=== PATIENT | female | born 1985 | race Caucasian/White ===

== ENCOUNTER 2016-09-04 22:12 | Observation (INO) | payer OTHER ==
[2016-09-04] MEDS ORDERED: SODIUM CHLORIDE 0.9% 1,000 ML IV STA (23:16)
[2016-09-04] MEDS ORDERED: NITROGLYCERIN OINT 1 INCH/GM PACKET TOPICAL STA (23:16)
[2016-09-04] MEDS ORDERED: ONDANSETRON 4 MG/2 ML VIAL IVP STA (23:16)
[2016-09-04] MEDS ORDERED: ASPIRIN 81 MG CHEW PO STA (23:16)
[2016-09-04] MEDS ORDERED: HYDROmorphone 1 MG/ML 1 ML SYRINGE IVP STA (23:18)
[2016-09-04 23:31] LABS: Basophils # (A) 0.1 k/uL (0-0.2); Basophils % (A) 1 %; CH 25.8; CHCM 31.2; Eosinophils # (A) 0.1 k/uL (0-0.7); Eosinophils % (A) 2 %; HCT 34.2 % (34.0-46.0); HGB 10.7 gm/dL (11.4-16.0); Hypochromasia Moderate; Luc # (Auto) 0.12; Luc % (Auto) 2; Lymphocytes # (A) 0.5 k/uL (1.0-4.8); Lymphocytes % (A) 11 %; MCHC 31.3 g/dL (31.0-37.0); Mean Platelet Volume 6.8; Monocytes # (A) 0.3 k/uL (0-1.0); Monocytes % (A) 6 %; Neutrophils % (A) 79 %; RBC 4.12 m/uL (3.80-5.40); RDW 15.2 % (11.5-15.5); WBC (Perox) 4.75
[2016-09-04 23:43] LABS: Partial Thromboplastin Time 28.1 sec (22.0-30.0); Prothrombin Time 10.1 sec (9.0-12.0)
[2016-09-04 23:45] LABS: ALT 38 U/L (9-52); AST 25 U/L (14-36); Alkaline Phosphatase 94 U/L (38-126); Anion Gap 12 mmol/L; Blood Urea Nitrogen 18 mg/dL (7-17); Calcium 9.7 mg/dL (8.4-10.2); Carbon Dioxide 28 mmol/L (22-30); Chloride 102 mmol/L (98-107); Glucose 77 mg/dL (74-99); Magnesium 2.1 mg/dL (1.6-2.3); Non-African American GFR(MDRD) >60 (>60 ml/min/1.73 sqM); Sodium 142 mmol/L (137-145); Total Bilirubin 0.4 mg/dL (0.2-1.3); Total Protein 6.7 g/dL (6.3-8.2)
[2016-09-04 23:57] LABS: Creatine Kinase 39 U/L (30-135)
--- NOTE | 2016-09-05 00:08 | XR ---
EXAM: XR Chest, 2 Views CLINICAL HISTORY: Reason: Chest Pain TECHNIQUE: Frontal and lateral views of the chest. COMPARISON: 11/05/15 FINDINGS: Lungs: Unremarkable. No consolidation. Pleural space: Unremarkable. No pneumothorax. Heart: Unremarkable. No cardiomegaly. Mediastinum: Unremarkable. Surgical clips within seen within the superior mediastinum/lower neck. Bones/joints: Unremarkable. IMPRESSION: Unremarkable chest x-rays.
[2016-09-05 00:10] LABS: Creatine Kinase MB 0.4 ng/mL (0.0-2.4); Troponin I <0.012 ng/mL (0.000-0.034)
--- NOTE | 2016-09-05 00:39 | ED ---
Chest Pain HPI - General Chief Complaint: Chest Pain Stated Complaint: chest pain Time Seen by Provider: 09/04/16 22:28 Source: patient Mode of arrival: ambulatory Limitations: no limitations - History of Present Illness Initial Comments: 31 years old female presented to the chest pain, ongoing for last 2 days she denies any shortness of breath chest pain is located on the retrosternal area, does not radiate to the back or to the jaw. Denies any nausea no vomiting no cold sweats pain does get worse with deep breaths and her initial history of congestive heart failure back in February 2015 this when she was with her baby - Related Data Home Medications Medication Instructions Recorded Confirmed Gabapentin [Neurontin] 400 mg PO HS 09/04/16 09/04/16 Levothyroxine Sodium [Synthroid] 200 mcg PO DAILY 09/04/16 09/04/16 Lurasidone HCl [Latuda] 60 mg PO DAILY 09/04/16 09/04/16 Melatonin 6 mg PO HS 09/04/16 09/04/16 Allergies Allergy/AdvReac Type Severity Reaction Status Date / Time amoxicillin trihydrate Allergy Severe Nausea & Verified 09/04/16 22:57 [From Augmentin] Vomiting & Diarrhea ciprofloxacin Allergy Dyspnea Verified 09/04/16 22:57 potassium clavulanate Allergy Unknown Verified 09/04/16 22:57 [From Augmentin] codeine AdvReac Severe Dyspnea Verified 09/04/16 22:57 Review of Systems ROS Statement: Those systems with pertinent positive or pertinent negative responses have been documented in the HPI. ROS Other: All systems not noted in ROS Statement are negative. 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 Skin: Skin is warm and dry and no rashes or lesions are noted. Eye: Pupils are equal, round and reactive to light, extra-ocular movements are intact; there is normal conjunctiva bilaterally. Ears, nose, mouth and throat: There are moist mucous membranes and no oral lesions. Neck: The neck is supple, there is no tenderness or JVD. Cardiovascular: There is a regular rate and rhythm. No murmur, rub or gallop is appreciated. Respiratory: To auscultation bilateral, no wheezing no rhonchi no distress respiratory cintron noticed Gastrointestinal: Soft, non-distended, non-tender abdomen without masses or organomegaly noted. There is no rebound or guarding present. Bowel sounds are unremarkable. Back: There is no tenderness to palpation in the midline. There is no obvious deformity. Musculoskeletal: Normal ROM, no tenderness, There is no pedal edema. There is no calf tenderness or swelling. No cords were appreciated. Neurological: CN II-XII intact, Cranial nerves III through XII are intact. There are no obvious motor or sensory deficits. Coordination appears grossly intact. Speech is normal. Psychiatric: Cooperative, appropriate mood & affect, normal judgment. Limitations: no limitations Course Vital Signs 09/04/16 09/04/16 09/05/16 22:16 23:04 00:29 Temperature 97.5 F L 97.4 F L Pulse Rate 78 84 71 Respiratory 18 16 16 Rate Blood Pressure 131/78 133/86 128/90 O2 Sat by Pulse 100 100 98 Oximetry - Reevaluation(s) Reevaluation #1: 09/05/16 01:42 At 1:35 AM, she noticed the pain was getting worse at this point and very quiet and give her heparin and she will be admitted for further evaluation and cardiology Disposition Clinical Impression: Chest pain, Pleuritic chest pain Disposition: ADMITTED IP TO THIS [facility] Condition: Good Referrals: Dayo Vidal DO [Primary Care Provider] - 1-2 days
[2016-09-05] MEDS ORDERED: HYDROmorphone 1 MG/ML 1 ML SYRINGE IVP STA (01:27)
[2016-09-05] MEDS ORDERED: NITROGLYCERIN SL TABS 0.4 MG TAB SUBLINGUAL PRN (01:45)
[2016-09-05] MEDS ORDERED: HEPARIN SODIUM,PORCINE 5,000 UNIT/ML 1 ML VIAL IV ONE (01:45)
[2016-09-05] MEDS ORDERED: HEPARIN SODIUM,PORCINE/D5W PMX 25,000 UNIT in DEXTROSE/WATER 1 500ML.BAG IV SCH (01:45)
[2016-09-05] MEDS ORDERED: HEPARIN SODIUM,PORCINE 5,000 UNIT/ML 1 ML VIAL IV PRN (04:19)
[2016-09-05] MEDS: SODIUM CHLORIDE 0.9% 1,000 ML IV SCH ×2 (05:44→16:04)
[2016-09-05] MEDS ORDERED: LEVOTHYROXINE 100 MCG TAB PO SCH (06:30)
[2016-09-05 06:45] LABS: Creatine Kinase 33 U/L (30-135)
[2016-09-05 06:56] LABS: Creatine Kinase MB 0.3 ng/mL (0.0-2.4); Troponin I <0.012 ng/mL (0.000-0.034)
[2016-09-05] MEDS ORDERED: LURASIDONE 40 MG TAB PO SCH (09:00)
--- NOTE | 2016-09-05 10:26 | P.CRDCN ---
History of Present Illness Consult date: 09/05/16 History of present illness: This is a 31-year-old female with no significant past medical history is admitted to the hospital with complaints of right-sided chest pain. The pain is located in the right breast area. It is somewhat increased with deep breathing. It has been continuous for the last several hours. Dilaudid helps the pain partially. EKG did not reveal any acute changes. Cardiac enzymes are negative. Her chest pains appear to be noncardiac and atypical. She is going to an echocardiogram and nuclear stress test. 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 Date of last positivie culture/infection: 2008 MDRO Source:: left calf Past Surgical History: Cholecystectomy, Orthopedic Surgery Additional Past Surgical History / Comment(s): thyroid, dental, bilateral ears, LEFT WRIST SURGERY Past Anesthesia/Blood Transfusion Reactions: No Reported Reaction Past Psychological History: Anxiety, Depression Smoking Status: Never smoker Past Alcohol Use History: None Reported Past Drug Use History: Marijuana - Past Family History Father Family Medical History: Hyperlipidemia, Hypertension, Thyroid Disorder Additional Family Medical History / Comment(s): anxiety depression Mother Family Medical History: Thyroid Disorder Brother(s) Family Medical History: No Reported History Sister(s) Family Medical History: No Reported History Daughter(s) Family Medical History: No Reported History Medications and Allergies Home Medications Medication Instructions Recorded Confirmed Type Gabapentin [Neurontin] 400 mg PO HS 09/04/16 09/05/16 History Levothyroxine Sodium [Synthroid] 200 mcg PO DAILY 09/04/16 09/05/16 History Lurasidone HCl [Latuda] 60 mg PO DAILY 09/04/16 09/05/16 History Melatonin 6 mg PO HS 09/04/16 09/05/16 History Allergies Allergy/AdvReac Type Severity Reaction Status Date / Time amoxicillin trihydrate Allergy Severe Nausea & Verified 09/05/16 03:19 [From Augmentin] Vomiting & Diarrhea ciprofloxacin Allergy Dyspnea Verified 09/05/16 03:19 potassium clavulanate Allergy Unknown Verified 09/05/16 03:19 [From Augmentin] codeine AdvReac Severe Dyspnea Verified 09/05/16 03:19 Physical Exam Vitals: Vital Signs Temp Pulse Pulse Resp BP BP Pulse Ox 09/05/16 08:00 98.0 F 69 18 103/71 98 09/05/16 03:25 18 09/05/16 03:02 97.9 F 80 18 122/73 97 09/05/16 01:47 75 20 146/82 99 09/05/16 00:29 97.4 F L 71 16 128/90 98 09/04/16 23:04 84 16 133/86 100 09/04/16 22:16 97.5 F L 78 18 131/78 100 Intake and Output 09/04/16 09/05/16 09/05/16 22:59 06:59 14:59 Intake Total 1000 Balance 1000 Intake: Amount of Fluid Infused ( 1000 ml) Other: Voiding Method Toilet Weight 35.289 kg GENERAL EXAM: Patient is alert and oriented and doesn't appear to be in any acute distress HEENT: Normocephalic. Normal reaction of pupils, equal size, normal range of extraocular motion. No erythema or exudates in the throat. NECK: No masses, no nuchal rigidity. CHEST: No chest wall deformity. LUNGS: Equal air entry with no crackles or wheeze. HEART: S1 and S2 normal with no audible mumurs or gallops. Regular rhythm, femorals equal on both sides.. ABDOMEN: No hepatosplenomegaly, normal bowel sounds, no guarding or rigidity. SKIN: No rashes CENTRAL NERVOUS SYSTEM: No focal deficits. EXTREMITIES: No cyanosis, clubbing or edema. Results 09/04/16 23:00 09/04/16 23:00 Cardiac Enzymes 09/04/16 09/04/16 09/05/16 Range/Units 23:00 23:00 05:18 AST 25 (14-36) U/L CK-MB (CK-2) 0.4 0.3 (0.0-2.4) ng/mL Troponin I <0.012 <0.012 (0.000-0.034) ng/mL Coagulation 09/04/16 09/05/16 Range/Units 23:00 08:50 PT 10.1 (9.0-12.0) sec APTT 28.1 39.7 H (22.0-30.0) sec CBC 09/04/16 Range/Units 23:00 WBC 5.0 (3.8-10.6) k/uL RBC 4.12 (3.80-5.40) m/uL Hgb 10.7 L (11.4-16.0) gm/dL Hct 34.2 (34.0-46.0) % Plt Count 347 (150-450) k/uL Comprehensive Metabolic Panel 09/04/16 Range/Units 23:00 Sodium 142 (137-145) mmol/L Potassium 4.0 (3.5-5.1) mmol/L Chloride 102 (98-107) mmol/L Carbon Dioxide 28 (22-30) mmol/L BUN 18 H (7-17) mg/dL Creatinine 0.60 (0.52-1.04) mg/dL Glucose 77 (74-99) mg/dL Calcium 9.7 (8.4-10.2) mg/dL AST 25 (14-36) U/L ALT 38 (9-52) U/L Alkaline Phosphatase 94 (38-126) U/L Total Protein 6.7 (6.3-8.2) g/dL Albumin 4.2 (3.5-5.0) g/dL Current Medications Generic Name Dose Route Start Last Admin Trade Name Quentinq PRN Reason Stop Dose Admin Aspirin 325 mg 09/06/16 09:00 Aspirin PO DAILY ROBE Gabapentin 400 mg 09/05/16 21:00 Neurontin PO HS ROBE Heparin Sodium (Porcine) 0 unit 09/05/16 04:19 Heparin IV PER PROTOCOL PRN Low PTT Protocol Heparin Sodium/Dextrose 25,000 500 mls @ 8.46 mls/hr 09/05/16 01:45 09/05/16 02:13 unit/ IV Solution IV 12 units/kg/hr .Q24H ROBE 8.46 mls/hr Protocol Administration 12 UNITS/KG/HR Sodium Chloride 1,000 mls @ 100 mls/hr 09/05/16 01:45 09/05/16 05:44 Saline 0.9% IV Not Given .Q10H ROBE Levothyroxine Sodium 200 mcg 09/05/16 06:30 09/05/16 05:43 Synthroid PO 200 mcg 0630 ROBE Administration Lurasidone HCl 60 mg 09/05/16 09:00 Latuda PO DAILY ROBE Melatonin 6 mg 09/05/16 21:00 Melatonin PO HS ROBE Nitroglycerin 0.4 mg 09/05/16 01:45 Nitrostat SUBLINGUAL Q5M PRN Chest Pain Intake and Output 09/04/16 09/05/16 09/05/16 22:59 06:59 14:59 Intake Total 1000 Balance 1000 Intake: Amount of Fluid Infused ( 1000 ml) Other: Voiding Method Toilet Weight 35.289 kg 09/04/16 23:00 09/04/16 23:00 EKG Interpretations (text) Sinus rhythm Assessment and Plan (1) Chest pain Status: Acute Plan: Her chest pains appear to be atypical and noncardiac. Patient is could have an echo on a regular stress test. If the test are normal. Patient could be discharged home
[2016-09-05 12:30] LABS: Creatine Kinase 32 U/L (30-135)
[2016-09-05 12:43] LABS: Creatine Kinase MB 0.3 ng/mL (0.0-2.4); Troponin I <0.012 ng/mL (0.000-0.034)
--- NOTE | 2016-09-05 12:51 | P.STRESS ---
- Stress Test Note Stress Test Results/Findings: Exam Performed: stress test Exam Date: 09/05/16 Reason for Exam: CP Height: 4 ft 7 in Weight: 34.927 kg Protocol: Seamus Stage: 111 Duration of Exercise: 10:02 Resting Heart Rate: 75 Resting Blood Pressure: 67/20 Maximum Achieved Heart Rate: 144 Maximum Achieved Blood Pressure: 164/97 85% PMHR: 75 100% PMHR: 191 METS: 8.5 Technologist Comment: Stress Test Results/Findings: Resting EKG shows normal sinus rhythm with normal LA interval and QRS duration and normal ST-T waves no ST segment depression suggestive of ischemia was noted. This arrhythmias were noted. Did not complain of any chest pain during the test. Conclusion. The stress electrocardiogram is not suggestive of ischemia. The patient did not complain of any anginal pain during the test. Patient's exercise tolerance is average
[2016-09-05 12:56] VITALS: BP 114/80; PULSE 78; RESP 16; TEMP 97.6
--- NOTE | 2016-09-05 13:00 | ECHOF ---
Referral Reason:Chest pain and cardiomyopathy MEASUREMENTS -------- HEIGHT: 139.7 cm WEIGHT: 34.9 kg BP: 103/71 IVSd: 0.8 cm (0.6 - 1.1) LVIDd: 4.6 cm (3.9 - 5.3) LVPWd: 0.7 cm (0.6 - 1.1) IVSs: 0.9 cm LVIDs: 3.3 cm LVPWs: 0.8 cm LAESV Index (A-L): 13.45 ml/m Ao Diam: 2.8 cm (2.0 - 3.7) AV Cusp: 1.7 cm (1.5 - 2.6) LA Diam: 2.1 cm (2.7 - 3.8) MV EXCURSION: 17.787 mm (> 18.000) MV EF SLOPE: 188 mm/s (70 - 150) EPSS: 0.9 cm MV E Vaibhav: 0.96 m/s MV DecT: 210 ms MV A Vaibhav: 0.55 m/s MV E/A Ratio: 1.73 RAP: 5.00 mmHg RVSP: 20.73 mmHg FINDINGS -------- Sinus rhythm. This was a technically adequate study. Overall left ventricular systolic function is low-normal with, an EF between 50 - 55 %. The right ventricle is normal in size and function. Normal LA size by volume 22+/-6 ml/m2. The right atrium is normal in size. The aortic valve is trileaflet, and appears structurally normal. No aortic stenosis or regurgitation. The mitral valve leaflets are mildly thickened. There is trace to mild mitral regurgitation. Trace tricuspid regurgitation present. There is no evidence of pulmonary hypertension. The right ventricular systolic pressure, as measured by Doppler, is 20.73mmHg. The pulmonic valve was not well visualized. The aortic root size is normal. Normal inferior vena cava with normal inspiratory collapse consistent with estimated right atrial pressure of 5 mmHg. The pericardium is normal. There is no pericardial effusion. CONCLUSIONS -------- 1. Sinus rhythm. 2. The right ventricular systolic pressure, as measured by Doppler, is 20.73mmHg. 3. The pulmonic valve was not well visualized. 4. The aortic root size is normal. 5. There is no pericardial effusion. 6. This was a technically adequate study. 7. Overall left ventricular systolic function is low-normal with, an EF between 50 - 55 %. 8. Normal LA size by volume 22+/-6 ml/m2. 9. The aortic valve is trileaflet, and appears structurally normal. No aortic stenosis or regurgitation. 10. The mitral valve leaflets are mildly thickened. 11. There is trace to mild mitral regurgitation. 12. Trace tricuspid regurgitation present. 13. There is no evidence of pulmonary hypertension. [employer]: Andrew Guajardo RDCS
[2016-09-05 13:39] VITALS: BMI 17.9
--- NOTE | 2016-09-05 14:17 | P.DS ---
Providers Date of admission: 09/05/16 01:45 Attending physician: Jericho Patton Consults: 09/05/16 01:45 Consult Physician Urgent Consulting Provider: Colette Vann Consult Reason/Comments: Chest pain Do you want consulting provider notified?: Yes Primary care physician: Dayo Vidal [facility] Course: Please refer to HPI Patient Condition at Discharge: Good Plan - Discharge Summary New Discharge Prescriptions: No Action Lurasidone HCl [Latuda] 60 mg PO DAILY Levothyroxine Sodium [Synthroid] 200 mcg PO DAILY Gabapentin [Neurontin] 400 mg PO HS Melatonin 6 mg PO HS Discharge Medication List Gabapentin [Neurontin] 400 mg PO HS 09/04/16 [History] Levothyroxine Sodium [Synthroid] 200 mcg PO DAILY 09/04/16 [History] Lurasidone HCl [Latuda] 60 mg PO DAILY 09/04/16 [History] Melatonin 6 mg PO HS 09/04/16 [History] Follow up Appointment(s)/Referral(s): Dayo Vidal DO [Primary Care Provider] - 3 Days Discharge Disposition: HOME SELF-CARE
--- NOTE | 2016-09-05 14:17 | P.HPIM ---
History of Present Illness 31-year-old female with no significant cardiac history except for related cardiomyopathy, and with normal ejection fraction now came in with complaints of chest pain which started yesterday while she was at [facility] nonexertional, nonpleuritic not associated with food moderate amount of chest pain relieved by Dilaudid, lasted for a few hours, negative cardiac enzymes no significant EKG changes. Patient denied any short of breath, cough, runny nose , fever, chills her chest pain is nonpruritic in nature. May be musculoskeletal. Patient was a valid by cardiology in the recommending stress test patient underwent stress us if that is negative patient will be discharged patient may have musculoskeletal chest pain. Review of Systems REVIEW OF SYSTEMS: CONSTITUTIONAL: No fever, no malaise, no fatigue. HEENT: No recent visual problems or hearing problems. Denied any sore throat. CARDIOVASCULAR: No orthopnea, PND, no palpitations, no syncope. PULMONARY: No shortness of breath, no cough, no hemoptysis. GASTROINTESTINAL: No diarrhea, no nausea, no vomiting, no abdominal pain. Normoactive bowel sounds. NEUROLOGICAL: No headaches, no weakness, no numbness. HEMATOLOGICAL: Denies any bleeding or petechiae. GENITOURINARY: Denies any burning micturition, frequency, or urgency. MUSCULOSKELETAL/RHEUMATOLOGICAL: Denies any joint pain, swelling, or any muscle pain. ENDOCRINE: Denies any polyuria or polydipsia. The rest of the 14-point review of systems is negative. 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 Date of last positivie culture/infection: 2008 MDRO Source:: left calf Past Surgical History: Cholecystectomy, Orthopedic Surgery Additional Past Surgical History / Comment(s): thyroid, dental, bilateral ears, LEFT WRIST SURGERY Past Anesthesia/Blood Transfusion Reactions: No Reported Reaction Past Psychological History: Anxiety, Depression Smoking Status: Never smoker Past Alcohol Use History: None Reported Past Drug Use History: Marijuana - Past Family History Father Family Medical History: Hyperlipidemia, Hypertension, Thyroid Disorder Additional Family Medical History / Comment(s): anxiety depression Mother Family Medical History: Thyroid Disorder Brother(s) Family Medical History: No Reported History Sister(s) Family Medical History: No Reported History Daughter(s) Family Medical History: No Reported History Medications and Allergies Home Medications Medication Instructions Recorded Confirmed Type Gabapentin [Neurontin] 400 mg PO HS 09/04/16 09/05/16 History Levothyroxine Sodium [Synthroid] 200 mcg PO DAILY 09/04/16 09/05/16 History Lurasidone HCl [Latuda] 60 mg PO DAILY 09/04/16 09/05/16 History Melatonin 6 mg PO HS 09/04/16 09/05/16 History Allergies Allergy/AdvReac Type Severity Reaction Status Date / Time amoxicillin trihydrate Allergy Severe Nausea & Verified 09/05/16 03:19 [From Augmentin] Vomiting & Diarrhea ciprofloxacin Allergy Dyspnea Verified 09/05/16 03:19 potassium clavulanate Allergy Unknown Verified 09/05/16 03:19 [From Augmentin] codeine AdvReac Severe Dyspnea Verified 09/05/16 03:19 Physical Exam Vitals: Vital Signs Temp Pulse Pulse Resp BP BP Pulse Ox 09/05/16 12:55 97.6 F 78 16 114/80 97 09/05/16 08:00 98.0 F 69 18 103/71 98 09/05/16 03:25 18 09/05/16 03:02 97.9 F 80 18 122/73 97 09/05/16 01:47 75 20 146/82 99 09/05/16 00:29 97.4 F L 71 16 128/90 98 09/04/16 23:04 84 16 133/86 100 09/04/16 22:16 97.5 F L 78 18 131/78 100 Intake and Output 09/04/16 09/05/16 09/05/16 22:59 06:59 14:59 Intake Total 1000 Balance 1000 Intake: Amount of Fluid Infused ( 1000 ml) Other: Voiding Method Toilet Weight 35.289 kg 34.927 kg Patient Weight 09/06/16 06:59 Weight 34.927 kg PHYSICAL EXAMINATION: GENERAL: The patient is alert and oriented x3, not in any acute distress. Short stricture, thin built HEENT: Pupils are round and equally reacting to light. EOMI. No scleral icterus. No conjunctival pallor. Normocephalic, atraumatic. No pharyngeal erythema. No thyromegaly. CARDIOVASCULAR: S1 and S2 present. No murmurs, rubs, or gallops. PULMONARY: Chest is clear to auscultation, no wheezing or crackles. ABDOMEN: Soft, nontender, nondistended, normoactive bowel sounds. No palpable organomegaly. MUSCULOSKELETAL: No joint swelling or deformity. EXTREMITIES: No cyanosis, clubbing, or pedal edema. NEUROLOGICAL: Gross neurological examination did not reveal any focal deficits. SKIN: No rashes. Results CBC & Chem 7: 09/04/16 23:00 09/04/16 23:00 Labs: Abnormal Lab Results - Last 24 Hours (Table) 09/04/16 09/04/16 09/05/16 Range/Units 23:00 23:00 08:50 Hgb 10.7 L (11.4-16.0) gm/dL Lymphocytes # 0.5 L (1.0-4.8) k/uL APTT 39.7 H (22.0-30.0) sec BUN 18 H (7-17) mg/dL Thrombosis Risk Factor Assmnt - Choose All That Apply Any of the Below Risk Factors Present?: No Other Risk Factors: No Other congenital or acquired thrombophilia - If yes, enter type in comment: No Thrombosis Risk Factor Assessment Level: Very Low Risk Assessment and Plan Plan: #1 chest pain, rule out acute coronary syndromes unstable angina patient underwent stress disorder that is negative patient will be discharged mostly has [place] the chest pain. #2 peripartum cardiomyopathy: Patient does not have any symptoms of congestive heart failure at this time. #3 hypothyroidism #4 fibromyalgia #5 marijuana use: Counseling was provided For above-mentioned chronic medical problems patient will be continued on home medications.
--- NOTE | 2016-09-05 15:40 | EST ---
Stress Test Results/Findings: Exam Performed: stress test Exam Date: 09/05/16 Reason for Exam: CP Height: 4 ft 7 in Weight: 34.927 kg Protocol: Seamus Stage: 111 Duration of Exercise: 10:02 Resting Heart Rate: 75 Resting Blood Pressure: 67/20 Maximum Achieved Heart Rate: 144 Maximum Achieved Blood Pressure: 164/97 85% PMHR: 75 100% PMHR: 191 METS: 8.5 Technologist Comment: Stress Test Results/Findings: Resting EKG shows normal sinus rhythm with normal [place] interval and QRS duration and normal ST-T waves no ST segment depression suggestive of ischemia was noted. This arrhythmias were noted. Did not complain of any chest pain during the test. Conclusion. The stress electrocardiogram is not suggestive of ischemia. The patient did not complain of any anginal pain during the test. Patient's exercise tolerance is average MTDD
[2016-09-05] MEDS ORDERED: GABAPENTIN 400 MG CAP PO SCH (21:00)
[2016-09-05] MEDS ORDERED: MELATONIN 3 MG TABLET PO SCH (21:00)
[2016-09-06] MEDS ORDERED: ASPIRIN 325 MG TAB PO SCH (09:00)
== END 2016-09-05 15:40 | disposition home or self-care (01) ==
LOC: EC 22:12 → 3OBS 09-05 01:45
PROVIDERS: ADMIT Hospitalist; ATTEND Hospitalist
DX: R07.2 Precordial pain (principal); E03.9 Hypothyroidism, unspecified; F12.90 Cannabis use, unspecified, uncomplicated; M79.7 Fibromyalgia; F41.9 Anxiety disorder, unspecified; F32.9 Major depressive disorder, single episode, unspecified; Z79.899 Other long term (current) drug therapy; Z88.0 Allergy status to penicillin; Z88.5 Allergy status to narcotic agent; Z86.14 Personal history of Methicillin resistant Staphylococcus aureus infection; Z85.850 Personal history of malignant neoplasm of thyroid; Z82.49 Family history of ischemic heart disease and other diseases of the circulatory system
CPT/HCPCS: 99285; 96361 ×3; 96374; 96375 ×2; 96376 ×2; 36415; 93005 ×2; 93017; 93306; 85379; 80053; 82550 ×2; 82553 ×2; 83735; 84484 ×2; 85025; 85610; 85730 ×2; 71020; G0378; J1644 ×2; J2405; J1170 ×2

== ENCOUNTER → 2016-10-17 | Outpatient (CLI) | payer OTHER ==
--- NOTE | 2016-10-17 13:34 | CT ---
EXAMINATION TYPE: CT ChestAbdPelvis w con DATE OF EXAM: 10/17/2016 COMPARISON: NONE HISTORY: Abnormal weight loss (R 53.4) per order. History of thyroid cancer per patient. CT DLP: 390.20 mGycm. Automated Exposure Control for Dose Reduction was Utilized. CONTRAST: CT scan of the thorax, abdomen and pelvis is performed with oral and with IV Contrast, patient inject ed with 75 ml mL of Omnipaque 300. FINDINGS: LUNGS: Some scattered focal areas of groundglass opacity throughout the right upper lobe are present. There is some patchy groundglass opacity in the right midlung anteriorly on axial image 25 near leve l of the major fissure. There is some more focal round groundglass opacity in the superior aspect lef t lower lobe on axial image 25. There is patchy groundglass opacity in the central lingula near axial image 31 and right middle lobe with more princess angular shaped consolidation or atelectasis abutting right heart border and axial image 34 through 38. There is more focal irregular groundglass opacity in left lung base just above diaphragm near axial image 37. No pleural effusion or pneumothorax is pr esent bilaterally. MEDIASTINUM: There are no greater than 1 cm hilar or mediastinal lymph nodes. No cardiomegaly or pe ricardial effusion is seen. OTHER: Surgical clips at level of thyroid bed are noted. LIVER/GB: Gallbladder is surgically absent. No biliary dilatation is seen. There are few tiny low den se lesions scattered throughout the liver too small to further characterize per presumed benign PANCREAS: No significant abnormality is seen. SPLEEN: No significant abnormality is seen. ADRENALS: No significant abnormality is seen. KIDNEYS: No significant abnormality is seen. BOWEL: Oral contrast reaches level of cecum. There is no suspicious small or large bowel dilatation. GENITAL ORGANS: No gross abnormality seen. LYMPH NODES: No greater than 1cm abdominal or pelvic lymph nodes are appreciated. OSSEOUS STRUCTURES: No significant abnormality is seen. OTHER: No significant additional abnormality is seen. IMPRESSION: 1. No suspicious mass or adenopathy is seen to suggest neoplasm. 2. Nonspecific lung parenchymal findings could reflect multifocal areas of acute edema and/or infiltr ate. Clinical correlation advised.
== END | disposition home or self-care (01) ==
LOC: RADCTMAIN 12:18
PROVIDERS: ATTEND Family Medicine
DX: R63.4 Abnormal weight loss (principal)
CPT/HCPCS: 71260; 74177; Q9967

== ENCOUNTER 2017-02-07 10:57 | Emergency (ER) | payer OTHER ==
[2017-02-07 11:03] VITALS: RESP 18
[2017-02-07] MEDS ORDERED: AZITHROMYCIN 1,200 MG/30 ML BOTTLE PO STA (11:12)
[2017-02-07] MEDS ORDERED: OXYMETAZOLINE 0.05% NASL SPRAY 1 SPRAY BOTTLE NASAL STA (11:13)
--- NOTE | 2017-02-07 11:40 | ED ---
ENT HPI - General Chief complaint: ENT Stated complaint: Sinus infection Time Seen by Provider: 02/07/17 11:06 Source: patient Mode of arrival: wheelchair Limitations: no limitations - History of Present Illness Initial comments: Patient complains of a sinus infection. She has discharge in the nostrils. She has congestion. She has no fever, chills, chest pain. She has no shortness of breath. She has no belly or back pain. Is no palpitations. She has no pain or swelling in the legs. She has no dyspnea. She has no headache. She has no weakness. - Related Data Home Medications Medication Instructions Recorded Confirmed QUEtiapine FUMARATE [SEROquel XR] 50 mg PO HS 01/06/17 02/07/17 Gabapentin [Neurontin] 400 mg PO HS 02/07/17 02/07/17 Levothyroxine Sodium [Synthroid] 175 mcg PO DAILY 02/07/17 02/07/17 traMADol HCL [Ultram] 100 mg PO Q4HR PRN 02/07/17 02/07/17 Previous Rx's Medication Instructions Recorded Azithromycin [Zithromax] 12.5 ml PO DAILY #70 ml 02/07/17 Oxymetazoline 0.05% Nasl [place] 2 spray EA NOSTRIL BID #1 bottle 02/07/17 [Afrin 0.05% Nasal [place]] Allergies Allergy/AdvReac Type Severity Reaction Status Date / Time amoxicillin trihydrate Allergy Severe Nausea & Verified 02/07/17 11:22 [From Augmentin] Vomiting & Diarrhea ciprofloxacin Allergy Dyspnea Verified 02/07/17 11:22 potassium clavulanate Allergy Unknown Verified 02/07/17 11:22 [From Augmentin] sumatriptan [From Imitrex] Allergy Dyspnea Verified 02/07/17 11:22 codeine AdvReac Severe Dyspnea Verified 02/07/17 11:22 Review of Systems ROS Statement: Those systems with pertinent positive or pertinent negative responses have been documented in the HPI. ROS Other: All systems not noted in ROS Statement are negative. 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 History of Any Multi-Drug Resistant Organisms: MRSA Date of last positivie culture/infection: 2008 MDRO Source:: left calf Past Surgical History: Cholecystectomy, Orthopedic Surgery Additional Past Surgical History / Comment(s): Multiple oral surgeries, bronchoscopy, thyroidectomy, myringotomy/tubes bilateral ears, LEFT WRIST SURGERY, g-tube Past Anesthesia/Blood Transfusion Reactions: No Reported Reaction Additional Past Anesthesia/Blood Transfusion Reaction / Comment(s): Use child size ET tube. Past Psychological History: Anxiety, Depression Smoking Status: Never smoker Past Alcohol Use History: None Reported Past Drug Use History: None Reported - Past Family History Father Family Medical History: Hyperlipidemia, Hypertension, Thyroid Disorder Additional Family Medical History / Comment(s): anxiety depression Mother Family Medical History: Thyroid Disorder Brother(s) Family Medical History: No Reported History Sister(s) Family Medical History: No Reported History Daughter(s) Family Medical History: No Reported History General Exam Limitations: no limitations General appearance: alert, in no apparent distress Head exam: Present: atraumatic, normocephalic, normal inspection Eye exam: Present: normal appearance, PERRL, EOMI. Absent: scleral icterus, conjunctival injection, periorbital swelling ENT exam: Present: normal exam, mucous membranes moist Neck exam: Present: normal inspection. Absent: tenderness, meningismus, lymphadenopathy Respiratory exam: Present: normal lung sounds bilaterally. Absent: respiratory distress, wheezes, rales, rhonchi, stridor Cardiovascular Exam: Present: regular rate, normal rhythm, normal heart sounds. Absent: systolic murmur, diastolic murmur, rubs, gallop, clicks GI/Abdominal exam: Present: soft, normal bowel sounds. Absent: distended, tenderness, guarding, rebound, rigid Extremities exam: Present: normal inspection, full ROM, normal capillary refill. Absent: tenderness, pedal edema, joint swelling, calf tenderness Back exam: Present: normal inspection Neurological exam: Present: alert, oriented X3, CN II-XII intact Psychiatric exam: Present: normal affect, normal mood Skin exam: Present: warm, dry, intact, normal color. Absent: rash Course Vital Signs 02/07/17 11:00 Temperature 97.3 F L Pulse Rate 142 H Respiratory 18 Rate Blood Pressure 132/90 O2 Sat by Pulse 95 Oximetry Medical Decision Making - Medical Decision Making Patient presents with complaint of sinus infection. I gave her azithromycin. I will prescribe her oxymetazoline. Patient does not want any additional testing at this time. She feels well. She would like to go home. She will follow-up with her doctor within 2 days, return to the emergency department if her symptoms worsen or she develops any other proms complaints. Disposition Clinical Impression: Sinusitis Disposition: HOME SELF-CARE Condition: Good Instructions: Sinusitis (ED) Prescriptions: Azithromycin [Zithromax] 12.5 ml PO DAILY #70 ml Oxymetazoline 0.05% Nasl [place] [Afrin 0.05% Nasal [place]] 2 spray EA NOSTRIL BID #1 bottle Referrals: Dayo Vidal DO [Primary Care Provider] - 1-2 days
[2017-02-07 12:40] VITALS: BP 133/71; PULSE 123; TEMP 98.3
== END 2017-02-07 12:40 | disposition home or self-care (01) ==
LOC: EC 10:57
DX: J32.9 Chronic sinusitis, unspecified (principal); R00.0 Tachycardia, unspecified; M79.7 Fibromyalgia; F32.9 Major depressive disorder, single episode, unspecified; E89.0 Postprocedural hypothyroidism; Z79.899 Other long term (current) drug therapy; Z88.0 Allergy status to penicillin; Z88.1 Allergy status to other antibiotic agents; Z88.5 Allergy status to narcotic agent; Z88.8 Allergy status to other drugs, medicaments and biological substances; Z85.850 Personal history of malignant neoplasm of thyroid; Z85.831 Personal history of malignant neoplasm of soft tissue; Z85.118 Personal history of other malignant neoplasm of bronchus and lung; Z92.21 Personal history of antineoplastic chemotherapy; Z92.3 Personal history of irradiation
CPT/HCPCS: 93005; 99283

== ENCOUNTER → 2017-02-27 | Outpatient (CLI) | payer OTHER ==
--- NOTE | 2017-02-27 12:40 | FL ---
Modified barium swallow. HISTORY: Dysphagia. Modified barium swallow was performed with the department of speech pathology. The patient was prese nted with various consistencies of barium. Mild transient penetration with thin liquid barium. No evidence for aspiration. Full report is to fol low from the department of speech pathology. Impression: Mild transient penetration with thin liquid barium.
== END | disposition home or self-care (01) ==
LOC: EEVIPCON 02-21 11:00 → RADFLWHC 11:01
PROVIDERS: ATTEND Family Medicine
DX: J39.8 Other specified diseases of upper respiratory tract (principal)
CPT/HCPCS: 74230

== ENCOUNTER 2017-03-10 20:17 | Emergency (ER) | payer OTHER ==
[2017-03-10 20:23] VITALS: TEMP 97.9
[2017-03-10] MEDS ORDERED: SODIUM CHLORIDE 0.9% 500 ML IV ONE (20:48)
[2017-03-10] MEDS ORDERED: KETOROLAC 30 MG/ML 1 ML VIAL IVP STA (20:49)
--- NOTE | 2017-03-10 20:59 | ED ---
Chest Pain HPI - General Chief Complaint: Chest Pain Stated Complaint: chest pain Time Seen by Provider: 03/10/17 20:32 Source: patient Mode of arrival: ambulatory Limitations: no limitations - History of Present Illness Initial Comments: 31-year-old female patient presents to the emergency department today for evaluation of chest pain. Patient states that she has had pain throughout the day today, states is all across her upper chest. She states she is also having some hot flashes with this. She reports that for the last week and half she is also had some left flank pain, states she thought was a pulled muscle. She states the pain is constant, states it does worsen with movement. She denies any fever or chills. She denies any sweats, nausea, or vomiting. She denies any shortness of breath with this. Denies any pain radiation into her back or jaw. Patient was discharged one month ago after being admitted for bilateral pneumonia, during the visit she did have to be intubated and transferred to [facility]. 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 Patient also has a history of rhabdomyosarcoma as a child. Patient denies any recent rash, abdominal pain, diarrhea, constipation, back pain, numbness, tingling, dizziness, weakness, hematuria, dysuria, urinary urgency, urinary frequency, headache, visual changes , or any other complaints. - Related Data Home Medications Medication Instructions Recorded Confirmed QUEtiapine FUMARATE [SEROquel XR] 50 mg PO HS 01/06/17 03/10/17 Gabapentin [Neurontin] 400 mg PO HS 02/07/17 03/10/17 Levothyroxine Sodium [Synthroid] 175 mcg PO DAILY 02/07/17 03/10/17 traMADol HCL [Ultram] 100 mg PO Q4HR PRN 02/07/17 03/10/17 Previous Rx's Medication Instructions Recorded Cyclobenzaprine [Flexeril] 10 mg PO TID #15 tab 03/10/17 Allergies Allergy/AdvReac Type Severity Reaction Status Date / Time amoxicillin trihydrate Allergy Severe Nausea & Verified 03/10/17 20:51 [From Augmentin] Vomiting & Diarrhea ciprofloxacin Allergy Dyspnea Verified 03/10/17 20:51 potassium clavulanate Allergy Unknown Verified 03/10/17 20:51 [From Augmentin] sumatriptan [From Imitrex] Allergy Dyspnea Verified 03/10/17 20:51 codeine AdvReac Severe Dyspnea Verified 03/10/17 20:51 Review of Systems ROS Statement: Those systems with pertinent positive or pertinent negative responses have been documented in the HPI. ROS Other: All systems not noted in ROS Statement are negative. EKG Findings - EKG Comments: EKG Findings:: EKG obtained at 2025 shows normal sinus rhythm with a nonspecific T-wave abnormality. Ventricular rate is 81, AL interval 1:30, QRS duration 76, QT 354, QTC 411. No evidence of ST elevation or depression. 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 Left lung diapharm paralyzed. History of Any Multi-Drug Resistant Organisms: MRSA Date of last positivie culture/infection: 2008 MDRO Source:: left calf Past Surgical History: Cholecystectomy, Orthopedic Surgery Additional Past Surgical History / Comment(s): Multiple oral surgeries, bronchoscopy, thyroidectomy, myringotomy/tubes bilateral ears, LEFT WRIST SURGERY, g-tube Past Anesthesia/Blood Transfusion Reactions: No Reported Reaction Additional Past Anesthesia/Blood Transfusion Reaction / Comment(s): Use child size ET tube. Past Psychological History: Anxiety, Depression Smoking Status: Never smoker Past Alcohol Use History: None Reported Past Drug Use History: None Reported - Past Family History Father Family Medical History: Hyperlipidemia, Hypertension, Thyroid Disorder Additional Family Medical History / Comment(s): anxiety depression Mother Family Medical History: Thyroid Disorder Brother(s) Family Medical History: No Reported History Sister(s) Family Medical History: No Reported History Daughter(s) Family Medical History: No Reported History General Exam Limitations: no limitations General appearance: alert, in no apparent distress, other (this is a well- developed, well-nourished adult female patient in no acute distress. Vital signs upon presentation are temperature 97.9F, pulse 95, respirations 18, blood pressure 126/95, pulse ox 100% on room air.) Head exam: Present: other (Head appears small for age) Eye exam: Present: normal appearance, PERRL, EOMI. Absent: scleral icterus, conjunctival injection, periorbital swelling ENT exam: Present: normal exam, normal oropharynx, mucous membranes moist, TM's normal bilaterally Neck exam: Present: normal inspection. Absent: tenderness, meningismus, lymphadenopathy Respiratory exam: Present: normal lung sounds bilaterally. Absent: respiratory distress, wheezes, rales, rhonchi, stridor Cardiovascular Exam: Present: regular rate, normal rhythm, normal heart sounds. Absent: systolic murmur, diastolic murmur, rubs, gallop, clicks GI/Abdominal exam: Present: soft, normal bowel sounds. Absent: distended, tenderness, guarding, rebound, rigid Neurological exam: Present: alert, oriented X3, CN II-XII intact Psychiatric exam: Present: normal affect, normal mood Skin exam: Present: warm, dry, intact, normal color. Absent: rash Course Vital Signs 03/10/17 03/10/17 03/10/17 20:19 20:43 21:02 Temperature 97.9 F Pulse Rate 95 81 Pulse Rate [ 102 H Program Coordinator ] Respiratory 18 18 Rate Blood Pressure 126/95 131/94 O2 Sat by Pulse 100 99 Oximetry 03/10/17 21:57 Temperature Pulse Rate 79 Pulse Rate [ Program Coordinator ] Respiratory 15 Rate Blood Pressure 132/84 O2 Sat by Pulse 98 Oximetry Chest Pain MDM - [facility] RADIOLOGY: Images and reports reviewed. Two-view x-ray of the chest shows some volume loss and left-sided elevated left diaphragm and pleural thickening at the left lung apex. Trachea is deviated slightly to the left side. The right lung is clear. There is no heart failure. There are chest leads. Impression by Dr. Harris shows similar pleural thickening and consolidation and atelectasis in the left lung compared to last exam. Aeration of the left lung however is improved overall compared to 01/14/2017. No heart failure. CT angiogram of the chest was obtained, report was reviewed in its entirety. Impression by Dr. Harris shows moderate-sized left pleural effusion with extensive consolidation and atelectasis in the left lung. No evidence of pulmonary embolism. Patchy interstitial infiltrate in the right lung. No evidence of the central pulmonary mass. 31-year-old female patient presented to the emergency department today for evaluation of chest pain. Physical examination was unremarkable, lungs were clear to auscultation, diminished in the left lung base. Vital signs are stable , oxygen saturation 97-99%. Patient denied any shortness of breath. Chest x- ray and CT of the chest were obtained, report is as above. Did discuss findings with the patient and her mother who his guardian. I did offer admission at this time however patient feels well enough to be discharged home. She is instructed to have repeat d-dimer performed within 1 week. She is instructed to follow-up with her inspector balance bridge who is Dr. Hammonds. She is instructed to return here immediately should her symptoms change, worsen, or if she develops any new symptoms. She verbalizes understanding and agrees with this plan. Disposition Clinical Impression: Pleural effusion, Elevated d-dimer Disposition: HOME SELF-CARE Condition: Good Instructions: Chest Pain (ED), Pleural Effusion (ED) Additional Instructions: Follow-up with your inspector balance bridge as soon as possible. Have repeat d-dimer performed. Return here immediately he should her symptoms change, worsen, or if he develop any new symptoms. Prescriptions: Cyclobenzaprine [Flexeril] 10 mg PO TID #15 tab Referrals: Dayo Vidal DO [Primary Care Provider] - 1-2 days Sun Hammonds MD [STAFF PHYSICIAN] - 1-2 days Time of Disposition: 22:46
[2017-03-10 21:04] LABS: Basophils % (A) 0 %; Eosinophils # (A) 0.2 k/uL (0-0.7); Eosinophils % (A) 2 %; HCT 37.7 % (34.0-46.0); Hypochromasia Marked; Lymphocytes # (A) 0.7 k/uL (1.0-4.8); Lymphocytes % (A) 9 %; MCHC 29.3 g/dL (31.0-37.0); MCV 81.8 fL (80.0-100.0); Mean Platelet Volume 6.3; Monocytes # (A) 0.3 k/uL (0-1.0); Monocytes % (A) 4 %; Neutrophils # (A) 6.6 k/uL (1.3-7.7); Neutrophils % (A) 83 %; Platelet Count 575 k/uL (150-450); Poikilocytosis Slight; RBC 4.61 m/uL (3.80-5.40); RDW 15.3 % (11.5-15.5); WBC 7.9 k/uL (3.8-10.6)
[2017-03-10 21:10] LABS: HGB 11.1 gm/dL (11.4-16.0)
[2017-03-10 21:11] LABS: ALT 27 U/L (9-52); AST 26 U/L (14-36); Albumin 4.3 g/dL (3.5-5.0); Alkaline Phosphatase 124 U/L (38-126); Anion Gap 12 mmol/L; Blood Urea Nitrogen 23 mg/dL (7-17); Calcium 10.2 mg/dL (8.4-10.2); Carbon Dioxide 29 mmol/L (22-30); Chloride 101 mmol/L (98-107); Glucose 73 mg/dL (74-99); Magnesium 1.9 mg/dL (1.6-2.3); Potassium 4.7 mmol/L (3.5-5.1); Sodium 142 mmol/L (137-145); Total Bilirubin 0.1 mg/dL (0.2-1.3); Total Protein 7.1 g/dL (6.3-8.2)
[2017-03-10 21:12] LABS: Appearance,Urine Cloudy (Clear); Bacteria,Urine Rare /hpf; Bilirubin,Urine Negative (Negative); Blood,Urine Negative (Negative); Color,Urine Yellow; Glucose,Urine (UA) Negative (Negative); Ketones,Urine Negative (Negative); Leukocyte Esterase,Urine Small (Negative); Mucus,Urine Moderate /hpf; Nitrite,Urine Negative (Negative); PH, Urine 5.5 (5.0-8.0); Protein,Urine Trace (Negative); RBC,Urine 1 /hpf (0-5); Specific Gravity,Urine 1.025 (1.001-1.035); Squamous Epithelial Cell,Urine 16 /hpf (0-4); Urobilinogen,Urine <2.0 mg/dL (<2.0); WBC,Urine 7 /hpf (0-5)
[2017-03-10 21:16] LABS: D-Dimer 1.93 mg/L FEU (<0.60); INR 0.9 (<1.2); Partial Thromboplastin Time 26.4 sec (22.0-30.0); Prothrombin Time 9.4 sec (9.0-12.0)
[2017-03-10 21:26] LABS: Creatine Kinase 40 U/L (30-135)
[2017-03-10] MEDS ORDERED: RX INFO: IV CONTRAST WAS GIVEN 1 EACH MISC MISCELLANE PRN (21:27)
[2017-03-10 21:39] LABS: Creatine Kinase MB 0.5 ng/mL (0.0-2.4); Troponin I <0.012 ng/mL (0.000-0.034)
--- NOTE | 2017-03-10 21:48 | XR ---
EXAMINATION TYPE: XR chest 2V DATE OF EXAM: 03/10/2017 COMPARISON: 02/28/2017 HISTORY: Chest pain TECHNIQUE: Frontal and lateral views of the chest are obtained. FINDINGS: There is some volume loss in the left side with elevated left diaphragm and pleural thicke ezra at the left lung apex. Trachea is deviated slightly to the left side. The right lung is clear. T here is no heart failure. There are chest leads. IMPRESSION: There is similar pleural thickening and consolidation and atelectasis in the left lung c ompared to last exam. Aeration of the left lung however is improved overall compared to 01/14/2017. No heart failure.
[2017-03-10 21:58] VITALS: BP 132/84; PULSE 79; RESP 15
--- NOTE | 2017-03-10 22:06 | CT ---
EXAMINATION TYPE: CT angio chest DATE OF EXAM: 03/10/2017 9:49 PM COMPARISON: NONE HISTORY: Diffuse chest pain today. CT DLP: 89.8 mGycm Automated exposure control for dose reduction was used. CONTRAST: CTA scan of the thorax is performed with IV Contrast, patient injected with 50 mL of Omnipaque 350, p ulmonary embolism protocol. There are 3-D post processed images.. FINDINGS: There is a moderate-sized left pleural effusion. There is extensive consolidation and atelectasis in the left lung. There is patchy groundglass interstitial infiltrate in the right lung. Heart size is n ormal. There is no pericardial effusion. Thoracic aorta appears normal. I see no filling defects in t he pulmonary arteries. There is no mediastinal adenopathy. The bony thorax appears intact. IMPRESSION: MODERATE-SIZED LEFT PLEURAL EFFUSION WITH EXTENSIVE CONSOLIDATION AND ATELECTASIS IN THE LEFT LUNG. N O EVIDENCE OF PULMONARY EMBOLISM. PATCHY INTERSTITIAL INFILTRATE IN THE RIGHT LUNG. NO EVIDENCE OF A CENTRAL PULMONARY MASS.
== END 2017-03-10 23:00 | disposition home or self-care (01) ==
LOC: EEVIPCON 20:17 → EC 20:17
DX: J90 Pleural effusion, not elsewhere classified (principal); R79.1 Abnormal coagulation profile; J39.8 Other specified diseases of upper respiratory tract; J98.11 Atelectasis; N95.1 Menopausal and female climacteric states; J98.6 Disorders of diaphragm; R10.9 Unspecified abdominal pain; M79.7 Fibromyalgia; F32.9 Major depressive disorder, single episode, unspecified; F41.9 Anxiety disorder, unspecified; E89.0 Postprocedural hypothyroidism; Z79.899 Other long term (current) drug therapy; Z88.0 Allergy status to penicillin; Z88.1 Allergy status to other antibiotic agents; Z88.5 Allergy status to narcotic agent; Z88.8 Allergy status to other drugs, medicaments and biological substances; Z86.14 Personal history of Methicillin resistant Staphylococcus aureus infection; Z85.850 Personal history of malignant neoplasm of thyroid; Z85.831 Personal history of malignant neoplasm of soft tissue; Z92.21 Personal history of antineoplastic chemotherapy; Z92.3 Personal history of irradiation; Z93.1 Gastrostomy status
CPT/HCPCS: 36415; 93005; 85379; 80053; 82550; 82553; 83735; 84484; 85025; 85610; 85730; 81001; 81025; 71046; 71275; 99285; 96372; Q9967; J1885; 96374

== ENCOUNTER → 2017-03-13 | Outpatient (CLI) | payer OTHER ==
--- NOTE | 2017-03-13 13:07 | US ---
EXAMINATION TYPE: US chest DATE OF EXAM: 03/13/2017 COMPARISON: X Ray CLINICAL HISTORY: J91.8 PLEURAL EFFUSION. EXAM MEASUREMENTS: Right Pleural Effusion fluid pocket: no fluid seen Left Pleural Effusion fluid pocket: 6.4 cm A/P Left skin to fluid thickness: 2.6 cm A/P Left side marked for possible thoracentesis outside the dept. Pulmonologists are able to review the images in the patient?s EMR. IMPRESSIONS: Partial visualization of a small left pleural effusion measuring 6.4 cm in greatest thic kness.
== END | disposition home or self-care (01) ==
LOC: RADUSWWP 12:29
PROVIDERS: ATTEND Nurse Practitioner Adult Health
DX: J90 Pleural effusion, not elsewhere classified (principal)
CPT/HCPCS: 76604

== ENCOUNTER 2017-03-14 12:03 | Day surgery (SDC) | payer OTHER ==
[2017-03-14 12:37] LABS: Mean Platelet Volume 6.6; Platelet Count 567 k/uL (150-450)
[2017-03-14 12:48] VITALS: RESP 18; TEMP 98
[2017-03-14] MEDS ORDERED: ALPRAZolam 0.5 MG TAB PO STA (12:51)
[2017-03-14 13:23] LABS: Prothrombin Time 9.8 sec (9.0-12.0)
--- NOTE | 2017-03-14 14:08 | XR ---
EXAMINATION TYPE: XR chest 1V DATE OF EXAM: 03/14/2017 COMPARISON: Previous chest x-ray 03/12/2017, CT 10/17/2016 HISTORY: Status post left thoracentesis TECHNIQUE: Single frontal view of the chest is obtained. FINDINGS: There is persistent volume loss in left hemithorax. No evident pneumothorax. No other sign ificant interval change. IMPRESSION: No evident complication status post thoracentesis.
[2017-03-14 14:45] VITALS: BP 139/93; PULSE 114
--- NOTE | 2017-03-14 16:00 | US ---
EXAMINATION TYPE: US thoracentesis DATE OF EXAM: 03/14/2017 COMPARISON: NONE HISTORY: Pleural effusion. FINDINGS: Maximal barrier technique was utilized. The skin overlying a suitable pocket of fluid was localized and the overlying skin prepped and draped. Lidocaine was used for local anesthesia. Ultras ound was used with sterile technique. A 5 [place] catheter over guide needle was advanced into the pl eural fluid collection using ultrasound guidance and the catheter advanced, needle removed. Approxim ately 0.26 liter(s) of serous fluid was removed. Catheter was withdrawn and hemostasis achieved. Th ere is no immediate complication. The patient discharged in stable condition without complication. IMPRESSION: STATUS POST ULTRASOUND GUIDED THORACENTESIS, POST PROCEDURE CHEST X-RAY PENDING. THIS TN OCEDURE WAS PERFORMED BY THE UNDERSIGNED. Specimen sent for laboratory analysis.
[2017-03-14 17:44] LABS: Appearance,BF Hazy; Color,BF Yellow
[2017-03-14 17:45] LABS: Nucleated Cells, Body Fluid 160 /uL; RBC, Body Fluid 2950 /uL
[2017-03-14 18:50] LABS: Total Protein, Body Fluid 4100 mg/dL
[2017-03-14 20:00] LABS: Mononuclear WBC,Body Fluid 64 %; Polynuclear WBC,Body Fluid 35 %
== END 2017-03-14 14:20 | disposition home or self-care (01) ==
LOC: RADPROMAIN 12:03
PROVIDERS: ATTEND Internal Medicine
DX: J90 Pleural effusion, not elsewhere classified (principal)
CPT/HCPCS: 32555; 36415; 71045; 82945; 83615; 84157; 85049; 85610; 87070; 87075; 87116; 87205; 87206; 88108; 88305; 89050

== ENCOUNTER 2017-05-02 13:35 | Emergency (ER) | payer OTHER ==
[2017-05-02 15:17] VITALS: RESP 18
--- NOTE | 2017-05-02 15:19 | XR ---
EXAMINATION TYPE: XR chest 2V DATE OF EXAM: 05/02/2017 COMPARISON: Prior chest x-ray 04/14/2017 HISTORY: Cough, pneumonia TECHNIQUE: Frontal and lateral views of the chest are obtained. FINDINGS: Postop changes are noted to the thoracic inlet level. The mixed interstitial and airspace changes, volume loss in the left hemithorax are not significantly changed. No evident pneumothorax or sizable effusion. Postop changes noted to the abdomen. Cardiac mediastinal silhouette shows a stable appearance, tethering present at the left hilar structures towards the apex. IMPRESSION: Essentially stable findings. Difficult to exclude pneumonia.
[2017-05-02] MEDS ORDERED: AZITHROMYCIN 250 MG TAB PO STA (15:34)
--- NOTE | 2017-05-02 15:37 | ED ---
URI HPI - General Chief Complaint: Upper Respiratory Infection Stated Complaint: Cough Time Seen by Provider: 05/02/17 15:01 Source: patient, RN notes reviewed Mode of arrival: ambulatory Limitations: no limitations - History of Present Illness Initial Comments: This a 32-year-old female presents emergency Department chief complaint of cough congestion. Patient states symptoms started 2 days ago. Patient states her cough is occasionally productive of she has a clear runny nose. Patient states that she has a long history of lung infection recently in January she had bilateral pneumonia. Patient reports no fevers or chills. Patient states she is appointment on Friday with her body masker Dr. Hammonds. Patient mother is concerned based on her symptoms and previous history. Patient states she overall feels well. Denies any nausea vomiting diarrhea constipation. Denies any neck pain or neck stiffness. - Related Data Home Medications Medication Instructions Recorded Confirmed QUEtiapine FUMARATE [SEROquel XR] 50 mg PO HS 01/06/17 05/02/17 Gabapentin [Neurontin] 400 mg PO BID 02/07/17 05/02/17 traMADol HCL [Ultram] 100 mg PO Q4-6H PRN 02/07/17 05/02/17 Levothyroxine Sodium 200 mcg PO DAILY 03/14/17 05/02/17 Melatonin 5 mg PO HS 03/14/17 05/02/17 Mirtazapine [Remeron] 7.5 mg PO HS 05/02/17 05/02/17 Previous Rx's Medication Instructions Recorded Azithromycin [Zithromax Z-pack] 0 mg PO DIRECTED #1 pack 05/02/17 Allergies Allergy/AdvReac Type Severity Reaction Status Date / Time amoxicillin trihydrate Allergy Severe Nausea & Verified 05/02/17 15:08 [From Augmentin] Vomiting & Diarrhea ciprofloxacin Allergy Dyspnea Verified 05/02/17 15:08 potassium clavulanate Allergy Unknown Verified 05/02/17 15:08 [From Augmentin] sumatriptan [From Imitrex] Allergy Dyspnea Verified 05/02/17 15:08 codeine AdvReac Severe Dyspnea Verified 05/02/17 15:08 Review of Systems ROS Statement: Those systems with pertinent positive or pertinent negative responses have been documented in the HPI. ROS Other: All systems not noted in ROS Statement are negative. 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 Left lung diapharm paralyzed. History of Any Multi-Drug Resistant Organisms: MRSA Date of last positivie culture/infection: 2008 MDRO Source:: left calf Past Surgical History: Cholecystectomy, Orthopedic Surgery Additional Past Surgical History / Comment(s): Multiple oral surgeries, bronchoscopy, thyroidectomy, myringotomy/tubes bilateral ears, LEFT WRIST SURGERY, g-tube Past Anesthesia/Blood Transfusion Reactions: No Reported Reaction Additional Past Anesthesia/Blood Transfusion Reaction / Comment(s): Use child size ET tube. Past Psychological History: Anxiety, Depression Smoking Status: Never smoker Past Alcohol Use History: None Reported Past Drug Use History: None Reported - Past Family History Father Family Medical History: Hyperlipidemia, Hypertension, Thyroid Disorder Additional Family Medical History / Comment(s): anxiety depression Mother Family Medical History: Thyroid Disorder Brother(s) Family Medical History: No Reported History Sister(s) Family Medical History: No Reported History Daughter(s) Family Medical History: No Reported History General Exam Limitations: no limitations General appearance: alert, in no apparent distress Head exam: Present: atraumatic, normocephalic, normal inspection Eye exam: Present: normal appearance, PERRL, EOMI. Absent: scleral icterus, conjunctival injection, periorbital swelling ENT exam: Present: mucous membranes moist, TM's normal bilaterally, normal external ear exam. Absent: normal exam, normal oropharynx (Edentulous) Neck exam: Present: full ROM. Absent: normal inspection (Chronic deformity), tenderness, meningismus, lymphadenopathy Respiratory exam: Present: normal lung sounds bilaterally. Absent: respiratory distress, wheezes, rales, rhonchi, stridor Cardiovascular Exam: Present: normal rhythm, tachycardia (101), normal heart sounds. Absent: systolic murmur, diastolic murmur, rubs, gallop, clicks Neurological exam: Present: alert Skin exam: Present: warm, dry, intact, normal color. Absent: rash Course Vital Signs 05/02/17 05/02/17 14:44 15:09 Temperature 97.7 F Pulse Rate 101 H Respiratory 20 18 Rate Blood Pressure 126/79 O2 Sat by Pulse 97 Oximetry Medical Decision Making - Medical Decision Making 32-year-old male present emergency Department for cough congestion. Patient chest x-ray shows no evidence of pneumonia though difficult to exclude. Patient 's chronic changes. Patient started on azithromycin. Patient is appointment on Friday with her body masker. Return parameters were discussed. Disposition Clinical Impression: Bronchitis Disposition: HOME SELF-CARE Condition: Stable Instructions: Upper Respiratory Infection (ED) Additional Instructions: Please return to the Emergency Department if symptoms worsen or any other concerns. Prescriptions: Azithromycin [Zithromax Z-pack] 0 mg PO DIRECTED #1 pack Referrals: Dayo Vidal DO [Primary Care Provider] - 1-2 days Time of Disposition: 15:37
[2017-05-02 16:10] VITALS: BP 131/88; PULSE 93; TEMP 98.7
== END 2017-05-02 16:07 | disposition home or self-care (01) ==
LOC: EC 13:35
DX: J40 Bronchitis, not specified as acute or chronic (principal); E07.9 Disorder of thyroid, unspecified; F32.9 Major depressive disorder, single episode, unspecified; F41.9 Anxiety disorder, unspecified; Z85.850 Personal history of malignant neoplasm of thyroid; Z86.14 Personal history of Methicillin resistant Staphylococcus aureus infection; Z79.899 Other long term (current) drug therapy; Z88.0 Allergy status to penicillin; Z88.1 Allergy status to other antibiotic agents; Z88.5 Allergy status to narcotic agent; Z88.8 Allergy status to other drugs, medicaments and biological substances
CPT/HCPCS: 71046; 99283

== ENCOUNTER 2017-06-07 23:22 | Emergency (ER) | payer OTHER ==
[2017-06-07] MEDS ORDERED: KETOROLAC 30 MG/ML 1 ML VIAL IVP STA (23:47)
[2017-06-07] MEDS ORDERED: RX INFO: IV CONTRAST WAS GIVEN 1 EACH MISC MISCELLANE PRN (23:47)
--- NOTE | 2017-06-07 23:52 | ED ---
Abdominal Pain HPI - General Chief Complaint: Abdominal Pain Stated Complaint: ABD PAIN Time Seen by Provider: 06/07/17 23:39 Source: patient, RN notes reviewed Mode of arrival: ambulatory Limitations: no limitations - History of Present Illness Initial Comments: This is a 32-year-old female who presents to the emergency department with chief complaint of abdominal pain. Patient states that for the past few days she has been having left upper quadrant abdominal pain that has progressively worsened. She states that this past January she was on life support at [facility] and after being taken off she had a feeding tube. The feeding tube was removed 2 months ago. She denies nausea or vomiting, fevers or chills, chest pain or shortness of breath. She does state that she is constipated but this is a chronic issue. She also states she believes she may have a urinary tract infection as she's been experiencing pain with urination. She denies a history of kidney stones but states that she has been having left flank pain. She also reports a history of pleural effusions and is concerned for one currently has she feels a "pain in her lungs." She states that this feels similar to when she was diagnosed with a pleural effusion in the past. - Related Data Home Medications Medication Instructions Recorded Confirmed QUEtiapine FUMARATE [SEROquel XR] 50 mg PO HS 01/06/17 05/02/17 Gabapentin [Neurontin] 400 mg PO BID 02/07/17 05/02/17 traMADol HCL [Ultram] 100 mg PO Q4-6H PRN 02/07/17 05/02/17 Levothyroxine Sodium 200 mcg PO DAILY 03/14/17 05/02/17 Melatonin 5 mg PO HS 03/14/17 05/02/17 Mirtazapine [Remeron] 7.5 mg PO HS 05/02/17 05/02/17 Previous Rx's Medication Instructions Recorded Azithromycin [Zithromax Z-pack] 0 mg PO DIRECTED #1 pack 05/02/17 Cefixime [Suprax] 400 mg PO DAILY #10 cap 06/08/17 Allergies Allergy/AdvReac Type Severity Reaction Status Date / Time amoxicillin trihydrate Allergy Severe Nausea & Verified 06/07/17 23:28 [From Augmentin] Vomiting & Diarrhea ciprofloxacin Allergy Dyspnea Verified 06/07/17 23:28 potassium clavulanate Allergy Unknown Verified 06/07/17 23:28 [From Augmentin] sumatriptan [From Imitrex] Allergy Dyspnea Verified 06/07/17 23:28 codeine AdvReac Severe Dyspnea Verified 06/07/17 23:28 Review of Systems ROS Statement: Those systems with pertinent positive or pertinent negative responses have been documented in the HPI. ROS Other: All systems not noted in ROS Statement are negative. 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 Left lung diapharm paralyzed. History of Any Multi-Drug Resistant Organisms: MRSA Date of last positivie culture/infection: 2008 MDRO Source:: left calf Past Surgical History: Cholecystectomy, Orthopedic Surgery Additional Past Surgical History / Comment(s): Multiple oral surgeries, bronchoscopy, thyroidectomy, myringotomy/tubes bilateral ears, LEFT WRIST SURGERY, g-tube Past Anesthesia/Blood Transfusion Reactions: No Reported Reaction Additional Past Anesthesia/Blood Transfusion Reaction / Comment(s): Use child size ET tube. Past Psychological History: Anxiety, Depression Smoking Status: Never smoker Past Alcohol Use History: None Reported Past Drug Use History: None Reported - Past Family History Father Family Medical History: Hyperlipidemia, Hypertension, Thyroid Disorder Additional Family Medical History / Comment(s): anxiety depression Mother Family Medical History: Thyroid Disorder Brother(s) Family Medical History: No Reported History Sister(s) Family Medical History: No Reported History Daughter(s) Family Medical History: No Reported History General Exam - General Exam Comments Initial Comments: General: Awake and alert, well-developed; in no apparent distress. Patient appears chronically ill. HEENT: Head atraumatic, normocephalic. Pupils are equal, round and reactive to light. Extraocular movements intact. Oropharynx moist without erythema or exudate. Neck: Supple. Normal ROM. Cardiovascular: Regular rate and rhythm. No murmurs, rubs or gallops. Chest symmetrical. Respiratory: Lungs clear to auscultation bilaterally. No wheezes, rales or rhonchi. Normal respiratory effort with no use of accessory muscles. Abdomen: Soft, non-distended. Tenderness on palpation of the epigastrium and left upper quadrant with guarding. No rigidity or rebound. Normal bowel sounds in all 4 quadrants. Musculoskeletal: Normal ROM, no tenderness bilateral upper and lower extremities. Ambulating normally. Skin: [place], warm and dry without rashes or lesions. Neurological: Alert and oriented x3. CN II-XII grossly intact. Speech is fluent and answers are appropriate. No focal neuro deficits. Psychiatric: Normal mood and affect. No overt signs of depression or anxiety noted. Limitations: no limitations Course Vital Signs 06/07/17 06/08/17 23:26 01:33 Temperature 98.2 F Pulse Rate 114 H 89 Respiratory 18 18 Rate Blood Pressure 149/87 149/99 O2 Sat by Pulse 95 98 Oximetry Medical Decision Making - Medical Decision Making This is a 32-year-old female presented to the emergency department with chief complaint of left upper quadrant pain. Patient states that 2 months ago she had a feeding tube removed. She states that for the past few days she has been having left upper quadrant pain that has been constant. She denies any nausea or vomiting, changes in bowel movements, fevers or chills. On physical examination, epigastrium and left upper quadrant are tender on palpation. A computed tomography scan of abdomen and pelvis was obtained and revealed no evidence for acute abdomen or pelvis. Patient also was concerned of possible pleural effusion. The lungs were clear to auscultation bilaterally. Chest x- ray revealed stable examination with no new infiltrates, pneumothorax or pleural effusions. Vital signs are stable and patient is in no acute distress. Labs were obtained. CBC revealed a hemoglobin of 10.8, however this is consistent with previous hemoglobin studies. CMP revealed a BUN of 24 which is stable compared to previous studies as well. UA revealed evidence for leukocyte esterase and white blood cells so patient will be treated for UTI. Urine culture is pending. This case was discussed with attending physician, Dr. Ching. Recommended administering a dose of Rocephin. Patient will be discharged home with a prescription for cefixime. She is to follow-up with her primary care provider within 1-2 days. Findings and plan were discussed with patient who is in agreement. All questions answered. - Lab Data Result diagrams: 06/08/17 00:09 06/08/17 00:09 Lab Results 06/08/17 06/08/1718 Range/Units 00:09 00:09 00:09 WBC 5.8 (3.8-10.6) k/uL RBC 4.71 (3.80-5.40) m/uL Hgb 10.8 L (11.4-16.0) gm/dL Hct 35.5 (34.0-46.0) % MCV 75.4 L (80.0-100.0) fL MCH 22.9 L (25.0-35.0) pg MCHC 30.3 L (31.0-37.0) g/dL RDW 20.1 H (11.5-15.5) % Plt Count 367 (150-450) k/uL Neutrophils % 74 % Lymphocytes % 14 % Monocytes % 5 % Eosinophils % 5 % Basophils % 0 % Neutrophils # 4.3 (1.3-7.7) k/uL Lymphocytes # 0.8 L (1.0-4.8) k/uL Monocytes # 0.3 (0-1.0) k/uL Eosinophils # 0.3 (0-0.7) k/uL Basophils # 0.0 (0-0.2) k/uL Hypochromasia Moderate Anisocytosis Moderate Microcytosis Moderate Sodium 142 (137-145) mmol/L Potassium 4.2 (3.5-5.1) mmol/L Chloride 99 (98-107) mmol/L Carbon Dioxide 29 (22-30) mmol/L Anion Gap 14 mmol/L BUN 24 H (7-17) mg/dL Creatinine 0.70 (0.52-1.04) mg/dL Est GFR (CKD-EPI)AfAm >90 (>60 ml/min/1.73 sqM) Est GFR (CKD-EPI)NonAf >90 (>60 ml/min/1.73 sqM) Glucose 78 (74-99) mg/dL Calcium 10.0 (8.4-10.2) mg/dL Total Bilirubin 0.5 (0.2-1.3) mg/dL AST 35 (14-36) U/L ALT 27 (9-52) U/L Alkaline Phosphatase 84 (38-126) U/L Total Protein 7.3 (6.3-8.2) g/dL Albumin 4.5 (3.5-5.0) g/dL Amylase <30 L (30-110) U/L Lipase 31 (23-300) U/L Urine Color Urine Appearance (Clear) Urine pH (5.0-8.0) Ur Specific [place] (1.001-1.035) Urine Protein (Negative) Urine Glucose (UA) (Negative) Urine Ketones (Negative) Urine Blood (Negative) Urine Nitrite (Negative) Urine Bilirubin (Negative) Urine Urobilinogen (<2.0) mg/dL Ur Leukocyte Esterase (Negative) Urine RBC (0-5) /hpf Urine WBC (0-5) /hpf Ur Squamous Epith Cells (0-4) /hpf Urine Mucus (None) /hpf Urine HCG, Qual Not Detected (Not Detectd) 06/08/17 Range/Units 00:09 WBC (3.8-10.6) k/uL RBC (3.80-5.40) m/uL Hgb (11.4-16.0) gm/dL Hct (34.0-46.0) % MCV (80.0-100.0) fL MCH (25.0-35.0) pg MCHC (31.0-37.0) g/dL RDW (11.5-15.5) % Plt Count (150-450) k/uL Neutrophils % % Lymphocytes % % Monocytes % % Eosinophils % % Basophils % % Neutrophils # (1.3-7.7) k/uL Lymphocytes # (1.0-4.8) k/uL Monocytes # (0-1.0) k/uL Eosinophils # (0-0.7) k/uL Basophils # (0-0.2) k/uL Hypochromasia Anisocytosis Microcytosis Sodium (137-145) mmol/L Potassium (3.5-5.1) mmol/L Chloride (98-107) mmol/L Carbon Dioxide (22-30) mmol/L Anion Gap mmol/L BUN (7-17) mg/dL Creatinine (0.52-1.04) mg/dL Est GFR (CKD-EPI)AfAm (>60 ml/min/1.73 sqM) Est GFR (CKD-EPI)NonAf (>60 ml/min/1.73 sqM) Glucose (74-99) mg/dL Calcium (8.4-10.2) mg/dL Total Bilirubin (0.2-1.3) mg/dL AST (14-36) U/L ALT (9-52) U/L Alkaline Phosphatase (38-126) U/L Total Protein (6.3-8.2) g/dL Albumin (3.5-5.0) g/dL Amylase (30-110) U/L Lipase (23-300) U/L Urine Color Yellow Urine Appearance Clear (Clear) Urine pH 5.5 (5.0-8.0) Ur Specific [place] 1.022 (1.001-1.035) Urine Protein Trace H (Negative) Urine Glucose (UA) Negative (Negative) Urine Ketones Negative (Negative) Urine Blood Negative (Negative) Urine Nitrite Negative (Negative) Urine Bilirubin Negative (Negative) Urine Urobilinogen <2.0 (<2.0) mg/dL Ur Leukocyte Esterase Large H (Negative) Urine RBC 3 (0-5) /hpf Urine WBC 24 H (0-5) /hpf Ur Squamous Epith Cells 2 (0-4) /hpf Urine Mucus Few H (None) /hpf Urine HCG, Qual (Not Detectd) - Radiology Data Radiology results: report reviewed Chest x-ray impression: There is some volume loss in the left lung. There is chronic infiltrate in the left upper lobe. There is improved aeration of the left lung base compared to last exam. No heart failure. No pleural effusion seen. CT abdomen and pelvis with contrast impression: There is mild enlargement of the biliary tree that is stable compared to old exam. No sign of an acute abdomen and pelvis. There has been surgery in the anterior stomach compared to last exam. There is some distortion of the anterior body of the stomach. Correlation with the surgical history as needed. Disposition Clinical Impression: Abdominal pain, Urinary tract infection Disposition: HOME SELF-CARE Condition: Good Instructions: Abdominal Pain (ED), Urinary Tract Infection in Women (ED) Additional Instructions: Please take medications as prescribed. Please follow up with primary care provider within 1-2 days. Return to emergency department if symptoms should worsen or any concerns arise. Prescriptions: Cefixime [Suprax] 400 mg PO DAILY #10 cap Is patient prescribed a controlled substance at d/c from ED?: No Referrals: Dayo Vidal DO [Primary Care Provider] - 1-2 days Time of Disposition: 01:57
[2017-06-08 00:18] LABS: Anisocytosis Moderate; Basophils % (A) 0 %; Eosinophils # (A) 0.3 k/uL (0-0.7); Eosinophils % (A) 5 %; HCT 35.5 % (34.0-46.0); HGB 10.8 gm/dL (11.4-16.0); Hypochromasia Moderate; Lymphocytes # (A) 0.8 k/uL (1.0-4.8); Lymphocytes % (A) 14 %; MCH 22.9 pg (25.0-35.0); MCHC 30.3 g/dL (31.0-37.0); MCV 75.4 fL (80.0-100.0); Mean Platelet Volume 6.8; Microcytosis Moderate; Monocytes # (A) 0.3 k/uL (0-1.0); Monocytes % (A) 5 %; Neutrophils # (A) 4.3 k/uL (1.3-7.7); Neutrophils % (A) 74 %; Platelet Count 367 k/uL (150-450); RBC 4.71 m/uL (3.80-5.40); RDW 20.1 % (11.5-15.5); WBC 5.8 k/uL (3.8-10.6)
[2017-06-08 00:26] LABS: Amylase <30 U/L (30-110); Anion Gap 14 mmol/L; Carbon Dioxide 29 mmol/L (22-30); Chloride 99 mmol/L (98-107); Glucose 78 mg/dL (74-99); Lipase 31 U/L (23-300); Sodium 142 mmol/L (137-145); Total Bilirubin 0.5 mg/dL (0.2-1.3)
[2017-06-08 00:27] LABS: Albumin 4.5 g/dL (3.5-5.0); Blood Urea Nitrogen 24 mg/dL (7-17); Potassium 4.2 mmol/L (3.5-5.1); Total Protein 7.3 g/dL (6.3-8.2)
[2017-06-08 00:28] LABS: ALT 27 U/L (9-52); AST 35 U/L (14-36); Alkaline Phosphatase 84 U/L (38-126)
[2017-06-08 00:55] LABS: Appearance,Urine Clear (Clear); Bilirubin,Urine Negative (Negative); Blood,Urine Negative (Negative); Color,Urine Yellow; Glucose,Urine (UA) Negative (Negative); Ketones,Urine Negative (Negative); Leukocyte Esterase,Urine Large (Negative); Mucus,Urine Few /hpf; Nitrite,Urine Negative (Negative); PH, Urine 5.5 (5.0-8.0); Protein,Urine Trace (Negative); RBC,Urine 3 /hpf (0-5); Specific Gravity,Urine 1.022 (1.001-1.035); Squamous Epithelial Cell,Urine 2 /hpf (0-4); Urobilinogen,Urine <2.0 mg/dL (<2.0); WBC,Urine 24 /hpf (0-5)
--- NOTE | 2017-06-08 01:10 | XR ---
EXAMINATION TYPE: XR chest 2V DATE OF EXAM: 06/08/2017 COMPARISON: 05/02/2017 HISTORY: Abdominal pain TECHNIQUE: Frontal and lateral views of the chest are obtained. FINDINGS: There are surgical clips in the superior mediastinum. There is some volume loss in the lef t upper lobe and shift of the trachea to the left side. There is elevated left diaphragm. The right l ivan is clear. There is some increased density in the left upper lobe. The bony thorax is intact. IMPRESSION: There is some volume loss in the left lung. There is chronic infiltrate in the left uppe r lobe. There is improved aeration of the left lung base compared to last exam. No heart failure. No pleural effusion seen.
--- NOTE | 2017-06-08 01:33 | CT ---
EXAMINATION TYPE: CT abdomen pelvis w con DATE OF EXAM: 06/08/2017 COMPARISON: 10/17/2016 HISTORY: abdominal pain CT DLP: 308.5 mGycm Automated exposure control for dose reduction was used. TECHNIQUE: Helical acquisition of images was performed from the lung bases through the pelvis. CONTRAST: Performed without Oral Contrast and with IV Contrast, patient injected with 90 mL of Isovue 300. FINDINGS: Lung bases are clear. There is no pleural effusion. Heart size is normal. There are clips from cholec ystectomy. The intrahepatic bile ducts are mildly ectatic. Common bile duct measures 8 mm. There is n o pancreatic mass. Liver shows no focal defect. Spleen appears normal. There are 2 linear densities o n the anterior aspect of the stomach that apparently relate to previous gastrostomy or some other gas tric surgery. There is no adrenal mass. Kidneys show satisfactory contrast opacification. There is no hydronephrosi s. There is no retroperitoneal adenopathy. There is no ascites. There is some retained fecal material throughout the colon. I see no intestinal wall thickening. Bladder distends smoothly. The uterus is anteverted. There is no evidence of pelvic mass. There is no sign of free air. Lumbar spine is intact . Appendix is not seen. There is no sign of appendicitis. IMPRESSION: THERE IS MILD ENLARGEMENT OF THE BILIARY TREE THAT IS STABLE COMPARED TO OLD EXAM. NO SIGN OF AN ACUT E ABDOMEN AND PELVIS. THERE IS BEEN SURGERY ON THE ANTERIOR STOMACH COMPARED TO LAST EXAM. THERE IS S OME DISTORTION OF THE ANTERIOR BODY OF THE STOMACH. CORRELATION WITH THE SURGICAL HISTORY IS NEEDED.
[2017-06-08 01:34] VITALS: PULSE 89
[2017-06-08] MEDS ORDERED: cefTRIAXone IN SWFI 1,000 MG/10 ML SYRINGE IVP ONE (02:00)
[2017-06-08 02:14] VITALS: BP 133/92; RESP 16; TEMP 98.5
== END 2017-06-08 02:13 | disposition home or self-care (01) ==
LOC: EC 23:22
DX: N39.0 Urinary tract infection, site not specified (principal); R10.12 Left upper quadrant pain; E07.9 Disorder of thyroid, unspecified; F32.9 Major depressive disorder, single episode, unspecified; F41.9 Anxiety disorder, unspecified; M79.7 Fibromyalgia; J44.9 Chronic obstructive pulmonary disease, unspecified; Z85.850 Personal history of malignant neoplasm of thyroid; Z86.14 Personal history of Methicillin resistant Staphylococcus aureus infection; Z86.69 Personal history of other diseases of the nervous system and sense organs; Z88.0 Allergy status to penicillin; Z88.1 Allergy status to other antibiotic agents; Z88.5 Allergy status to narcotic agent; Z88.8 Allergy status to other drugs, medicaments and biological substances; Z79.899 Other long term (current) drug therapy; Z98.890 Other specified postprocedural states; Z92.21 Personal history of antineoplastic chemotherapy; Z90.49 Acquired absence of other specified parts of digestive tract; Z53.8 Procedure and treatment not carried out for other reasons
CPT/HCPCS: 99284; 96374; 96375; 36415; 80053; 82150; 83690; 85025; 81001; 81025; 87086; 71046; 74177; J0696; J1885; Q9967

== ENCOUNTER 2017-08-28 19:16 | Emergency (ER) | payer OTHER ==
[2017-08-28 19:38] VITALS: RESP 18; TEMP 97.5
--- NOTE | 2017-08-28 20:02 | ED ---
Skin/Abscess/FB HPI - General Chief complaint: Skin/Abscess/Foreign Body Stated complaint: Abd pain/skin poss infected Time Seen by Provider: 08/28/17 19:38 Source: patient, family, RN notes reviewed Mode of arrival: ambulatory Limitations: no limitations - History of Present Illness Initial comments: 32-year-old female presents emergency Department chief complaint of abscess or her feeding tube was in the past. Patient states that she's had some increasing pain and redness or last few days states it is worse. She states her seems to be center bubble region with surrounding erythema. She reports no fever or chills no nausea vomiting diarrhea constipation. Patient has multiple chronic disease. Patient states his been no drainage. - Related Data Home Medications Medication Instructions Recorded Confirmed QUEtiapine FUMARATE [SEROquel XR] 50 mg PO HS 01/06/17 08/28/17 Gabapentin [Neurontin] 400 mg PO BID 08/28/17 08/28/17 Mirtazapine [Remeron] 30 mg PO HS 08/28/17 08/28/17 Topiramate [Topamax] 50 mg PO BID 08/28/17 08/28/17 Previous Rx's Medication Instructions Recorded Sulfamethox-Tmp 200-40Mg/5Ml 20 ml PO Q12HR #400 ml 08/28/17 [Bactrim Suspension] Allergies Allergy/AdvReac Type Severity Reaction Status Date / Time amoxicillin trihydrate Allergy Severe Nausea & Verified 08/28/17 20:55 [From Augmentin] Vomiting & Diarrhea ciprofloxacin Allergy Dyspnea Verified 08/28/17 20:55 potassium clavulanate Allergy Unknown Verified 08/28/17 20:55 [From Augmentin] sumatriptan [From Imitrex] Allergy Dyspnea Verified 08/28/17 20:55 codeine AdvReac Severe Dyspnea Verified 08/28/17 20:55 Review of Systems ROS Statement: Those systems with pertinent positive or pertinent negative responses have been documented in the HPI. ROS Other: All systems not noted in ROS Statement are negative. 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 Left lung diapharm paralyzed. History of Any Multi-Drug Resistant Organisms: MRSA Date of last positivie culture/infection: 2008 MDRO Source:: left calf Past Surgical History: Cholecystectomy, Orthopedic Surgery Additional Past Surgical History / Comment(s): Multiple oral surgeries, bronchoscopy, thyroidectomy, myringotomy/tubes bilateral ears, LEFT WRIST SURGERY, g-tube Past Anesthesia/Blood Transfusion Reactions: No Reported Reaction Additional Past Anesthesia/Blood Transfusion Reaction / Comment(s): Use child size ET tube. Past Psychological History: Anxiety, Depression Smoking Status: Never smoker Past Alcohol Use History: None Reported Past Drug Use History: Marijuana - Past Family History Father Family Medical History: Hyperlipidemia, Hypertension, Thyroid Disorder Additional Family Medical History / Comment(s): anxiety depression Mother Family Medical History: Thyroid Disorder Brother(s) Family Medical History: No Reported History Sister(s) Family Medical History: No Reported History Daughter(s) Family Medical History: No Reported History General Exam Limitations: no limitations General appearance: alert, in no apparent distress Head exam: Present: atraumatic, normocephalic, normal inspection Neck exam: Present: normal inspection. Absent: tenderness, meningismus, lymphadenopathy Respiratory exam: Present: normal lung sounds bilaterally. Absent: respiratory distress, wheezes, rales, rhonchi, stridor Cardiovascular Exam: Present: regular rate, normal rhythm, normal heart sounds. Absent: systolic murmur, diastolic murmur, rubs, gallop, clicks GI/Abdominal exam: Present: soft, tenderness (Moderate tenderness around abscess in her left upper quadrant), normal bowel sounds, other (There is an area that is indurated approximately 3 cm by 3 cm with erythema at the skin and central 1 cm abscess.). Absent: distended, guarding, rebound, rigid Neurological exam: Present: alert Course Vital Signs 08/28/17 19:34 Temperature 97.5 F L Pulse Rate 96 Respiratory 18 Rate Blood Pressure 138/71 O2 Sat by Pulse 96 Oximetry Procedures - Incision & Drainage Consent Obtained: verbal consent Indication: Abdominal abscess Site: abdomen Size (cm): 2 I&D Cleaning Method: Betadine Needle Aspiration Performed?: Yes I&D Drainage Obtained: Pus Patient Tolerated Procedure: well, no complications Medical Decision Making - Medical Decision Making 32-year-old female presented for abdominal abscess. Does. 2 x 0.5 cm abscess was opened with an 18-gauge emergency Department the large amount of purulent drainage was removed. Patient states she feels improved. Patient be started on Bactrim. Return parameters discussed. - Lab Data Result diagrams: 08/28/17 20:11 08/28/17 20:11 Lab Results 08/28/17 08/28/17 Range/Units 20:11 20:11 WBC 4.3 (3.8-10.6) k/uL RBC 4.83 (3.80-5.40) m/uL Hgb 12.0 (11.4-16.0) gm/dL Hct 38.9 (34.0-46.0) % MCV 80.5 (80.0-100.0) fL MCH 24.7 L (25.0-35.0) pg MCHC 30.7 L (31.0-37.0) g/dL RDW 18.1 H (11.5-15.5) % Plt Count 383 (150-450) k/uL Neutrophils % 70 % Lymphocytes % 18 % Monocytes % 7 % Eosinophils % 1 % Basophils % 1 % Neutrophils # 3.0 (1.3-7.7) k/uL Lymphocytes # 0.8 L (1.0-4.8) k/uL Monocytes # 0.3 (0-1.0) k/uL Eosinophils # 0.0 (0-0.7) k/uL Basophils # 0.0 (0-0.2) k/uL Hypochromasia Slight Anisocytosis Slight Microcytosis Slight Sodium 142 (137-145) mmol/L Potassium 3.9 (3.5-5.1) mmol/L Chloride 109 H (98-107) mmol/L Carbon Dioxide 21 L (22-30) mmol/L Anion Gap 12 mmol/L BUN 21 H (7-17) mg/dL Creatinine 0.97 (0.52-1.04) mg/dL Est GFR (CKD-EPI)AfAm >90 (>60 ml/min/1.73 sqM) Est GFR (CKD-EPI)NonAf 79 (>60 ml/min/1.73 sqM) Glucose 81 (74-99) mg/dL Calcium 9.1 (8.4-10.2) mg/dL Disposition Clinical Impression: Abscess of skin of abdomen Disposition: HOME SELF-CARE Condition: Stable Instructions: Abscess Incision and Drainage (ED) Additional Instructions: Please return to the Emergency Department if symptoms worsen or any other concerns. Prescriptions: Sulfamethox-Tmp 200-40Mg/5Ml [Bactrim Suspension] 20 ml PO Q12HR #400 ml Is patient prescribed a controlled substance at d/c from ED?: No Referrals: Dayo Vidal DO [Primary Care Provider] - 1-2 days Time of Disposition: 22:04
[2017-08-28 20:25] LABS: Anisocytosis Slight; Basophils % (A) 1 %; Eosinophils % (A) 1 %; HCT 38.9 % (34.0-46.0); Hypochromasia Slight; Lymphocytes # (A) 0.8 k/uL (1.0-4.8); Lymphocytes % (A) 18 %; MCH 24.7 pg (25.0-35.0); MCHC 30.7 g/dL (31.0-37.0); MCV 80.5 fL (80.0-100.0); Mean Platelet Volume 6.5; Microcytosis Slight; Monocytes # (A) 0.3 k/uL (0-1.0); Monocytes % (A) 7 %; Neutrophils % (A) 70 %; Platelet Count 383 k/uL (150-450); RBC 4.83 m/uL (3.80-5.40); RDW 18.1 % (11.5-15.5); WBC 4.3 k/uL (3.8-10.6)
--- NOTE | 2017-08-28 20:44 | US ---
EXAMINATION TYPE: US abdomen limited DATE OF EXAM: 08/28/2017 COMPARISON: NONE CLINICAL HISTORY: Abdominal abscess. Lump on abdomen above belly button. Complex area seen at lump measuring 2.0 x 1.3 x 1.5 cm suggestive of abscess. IMPRESSION: Complex cystic fluid collection is demonstrated there is nonspecific. This could be an a bscess. This extends to the skin surface.
[2017-08-28 20:46] LABS: Anion Gap 12 mmol/L; Blood Urea Nitrogen 21 mg/dL (7-17); Calcium 9.1 mg/dL (8.4-10.2); Carbon Dioxide 21 mmol/L (22-30); Chloride 109 mmol/L (98-107); Glucose 81 mg/dL (74-99); Potassium 3.9 mmol/L (3.5-5.1); Sodium 142 mmol/L (137-145)
[2017-08-28 22:22] VITALS: BP 123/90; PULSE 67
== END 2017-08-28 22:22 | disposition home or self-care (01) ==
LOC: EC 19:16
DX: L02.211 Cutaneous abscess of abdominal wall (principal); M79.7 Fibromyalgia; F41.9 Anxiety disorder, unspecified; F32.9 Major depressive disorder, single episode, unspecified; Z90.49 Acquired absence of other specified parts of digestive tract; Z85.850 Personal history of malignant neoplasm of thyroid; Z86.14 Personal history of Methicillin resistant Staphylococcus aureus infection; Z98.890 Other specified postprocedural states; Z79.899 Other long term (current) drug therapy; Z88.0 Allergy status to penicillin; Z88.1 Allergy status to other antibiotic agents; Z88.5 Allergy status to narcotic agent; Z88.8 Allergy status to other drugs, medicaments and biological substances
CPT/HCPCS: 10060; 36415; 76705; 80048; 85025; 87040; 87070; 87205; 99283

== ENCOUNTER → 2017-10-20 | Outpatient (CLI) | payer OTHER ==
--- NOTE | 2017-10-20 14:04 | XR ---
EXAMINATION TYPE: XR chest 2V DATE OF EXAM: 10/20/2017 COMPARISON: NONE HISTORY: Chest pain TECHNIQUE: Frontal and lateral views of the chest are obtained. FINDINGS: There is no focal air space opacity. Chronic density left lower lobe. No evidence for pneumothorax. No pleural effusion. The cardiac silhouette size is within normal limits. The osseous structures are grossly intact. IMPRESSION: 1. No acute cardiopulmonary process.
== END | disposition home or self-care (01) ==
LOC: RADXRMAIN 13:47
PROVIDERS: ATTEND Internal Medicine
DX: J90 Pleural effusion, not elsewhere classified (principal)
CPT/HCPCS: 71046

== ENCOUNTER 2018-02-15 18:38 | Emergency (ER) | payer OTHER ==
[2018-02-15 18:51] VITALS: RESP 18
[2018-02-15] MEDS ORDERED: SODIUM CHLORIDE 0.9% 500 ML 500 ML IV ONE (19:08)
--- NOTE | 2018-02-15 19:12 | ED ---
Recheck HPI - General Chief Complaint: Recheck/Abnormal Lab/Rx Stated Complaint: chills/not feeling well Time Seen by Provider: 02/15/18 18:59 Source: patient Mode of arrival: ambulatory Limitations: no limitations - History of Present Illness Initial Comments: 32-year-old female patient presents to the emergency department today with chief complaint of chills and not feeling well. Patient states that for the last couple of days she has been sleeping more than usual. States she has been very chilled and unable to get warm. Patient states she does have some shortness of breath but is not unusual for her. States that she has had bilateral pneumonia in the past with no symptoms and required intubation in hospitalization. She is concerned this may be happening again. States she has had some intermittent nausea. Denies any hematuria, dysuria, urinary frequency , urinary urgency. She denies any known fevers. Patient denies any recent rash , chest pain, abdominal pain, diarrhea, constipation, back pain, numbness, tingling, dizziness, weakness, headache, visual changes, or any other complaints. - Related Data Home Medications Medication Instructions Recorded Confirmed QUEtiapine FUMARATE [SEROquel XR] 50 mg PO HS 01/06/17 02/15/18 Topiramate [Topamax] 50 mg PO BID 08/28/17 02/15/18 Gabapentin [Neurontin] 400 mg PO BID 02/15/18 02/15/18 Melatonin 10 mg PO HS PRN 02/15/18 02/15/18 traMADol HCL [Ultram] 50 mg PO DAILY PRN 02/15/18 02/15/18 Allergies Allergy/AdvReac Type Severity Reaction Status Date / Time amoxicillin trihydrate Allergy Severe Nausea & Verified 02/15/18 19:03 [From Augmentin] Vomiting & Diarrhea ciprofloxacin Allergy Dyspnea Verified 02/15/18 19:03 potassium clavulanate Allergy Unknown Verified 02/15/18 19:03 [From Augmentin] sumatriptan [From Imitrex] Allergy Dyspnea Verified 02/15/18 19:03 codeine AdvReac Severe Dyspnea Verified 02/15/18 19:03 Review of Systems ROS Statement: Those systems with pertinent positive or pertinent negative responses have been documented in the HPI. ROS Other: All systems not noted in ROS Statement are negative. 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 Left lung diapharm paralyzed. History of Any Multi-Drug Resistant Organisms: MRSA Date of last positivie culture/infection: 2008 MDRO Source:: left calf Past Surgical History: Cholecystectomy, Orthopedic Surgery Additional Past Surgical History / Comment(s): Multiple oral surgeries, bronchoscopy, thyroidectomy, myringotomy/tubes bilateral ears, LEFT WRIST SURGERY, g-tube Past Anesthesia/Blood Transfusion Reactions: No Reported Reaction Additional Past Anesthesia/Blood Transfusion Reaction / Comment(s): Use child size ET tube. Past Psychological History: Anxiety, Depression Smoking Status: Never smoker Past Alcohol Use History: None Reported Past Drug Use History: Marijuana - Past Family History Father Family Medical History: Hyperlipidemia, Hypertension, Thyroid Disorder Additional Family Medical History / Comment(s): anxiety depression Mother Family Medical History: Thyroid Disorder Brother(s) Family Medical History: No Reported History Sister(s) Family Medical History: No Reported History Daughter(s) Family Medical History: No Reported History General Exam Limitations: no limitations General appearance: alert, in no apparent distress, other (Vital signs upon presentation are temperature 97.4F, pulse 80, respirations 18, blood pressure 109/76, pulse ox 100% on room air.) Eye exam: Present: normal appearance, PERRL, EOMI, other (Pale conjunctiva). Absent: scleral icterus, conjunctival injection, periorbital swelling ENT exam: Present: normal exam, normal oropharynx, mucous membranes moist Respiratory exam: Present: normal lung sounds bilaterally. Absent: respiratory distress, wheezes, rales, rhonchi, stridor Cardiovascular Exam: Present: regular rate, normal rhythm, normal heart sounds. Absent: systolic murmur, diastolic murmur, rubs, gallop, clicks GI/Abdominal exam: Present: soft, normal bowel sounds. Absent: distended, tenderness, guarding, rebound, rigid Neurological exam: Present: alert, oriented X3, CN II-XII intact Psychiatric exam: Present: normal affect, normal mood Skin exam: Present: warm, dry, intact, pallor. Absent: normal color, rash Course Vital Signs 02/15/18 02/15/18 18:48 22:29 Temperature 97.4 F L 97.8 F Pulse Rate 80 69 Respiratory 18 18 Rate Blood Pressure 109/76 124/81 O2 Sat by Pulse 100 100 Oximetry Medical Decision Making - Medical Decision Making 32-year-old female patient presents to the emergency department today for evaluation of weakness and chills. Physical examination is relatively unremarkable. She is neurologically intact. Lungs are clear to auscultation with good air movement. Patient does have a history of significant pneumonia with respiratory failure and subsequent intubation. She is concerned this may be happening again as she did not have symptoms with that episode. Labs reviewed and are unremarkable other than some increased BUN and creatinine indicating dehydration. Chest x-ray shows no acute cardio pulmonary process. Vital signs are stable. She is given IV fluids here in the department. She'll be discharged home to follow up with her primary care physician for recheck in 1 -2 days. Return parameters discussed in detail. She verbalizes understanding and agrees with this plan. - Lab Data Result diagrams: 02/15/18 20:09 02/15/18 20:09 Lab Results 02/15/18 02/15/18 02/15/18 Range/Units 20:05 20:05 20:09 WBC 5.8 (3.8-10.6) k/uL RBC 4.84 (3.80-5.40) m/uL Hgb 12.6 (11.4-16.0) gm/dL Hct 40.4 (34.0-46.0) % MCV 83.4 (80.0-100.0) fL MCH 26.0 (25.0-35.0) pg MCHC 31.2 (31.0-37.0) g/dL RDW 16.3 H (11.5-15.5) % Plt Count 356 (150-450) k/uL Neutrophils % 81 % Lymphocytes % 13 % Monocytes % 3 % Eosinophils % 1 % Basophils % 0 % Neutrophils # 4.7 (1.3-7.7) k/uL Lymphocytes # 0.8 L (1.0-4.8) k/uL Monocytes # 0.2 (0-1.0) k/uL Eosinophils # 0.1 (0-0.7) k/uL Basophils # 0.0 (0-0.2) k/uL Hypochromasia Slight Anisocytosis Slight Sodium (137-145) mmol/L Potassium (3.5-5.1) mmol/L Chloride (98-107) mmol/L Carbon Dioxide (22-30) mmol/L Anion Gap mmol/L BUN (7-17) mg/dL Creatinine (0.52-1.04) mg/dL Est GFR (CKD-EPI)AfAm (>60 ml/min/1.73 sqM) Est GFR (CKD-EPI)NonAf (>60 ml/min/1.73 sqM) Glucose (74-99) mg/dL Plasma Lactic Acid Corey (0.7-2.0) mmol/L Calcium (8.4-10.2) mg/dL Total Bilirubin (0.2-1.3) mg/dL AST (14-36) U/L ALT (9-52) U/L Alkaline Phosphatase (38-126) U/L Total Protein (6.3-8.2) g/dL Albumin (3.5-5.0) g/dL Urine Color Yellow Urine Appearance Cloudy H (Clear) Urine pH 7.5 (5.0-8.0) Ur Specific [place] 1.026 (1.001-1.035) Urine Protein Trace H (Negative) Urine Glucose (UA) Negative (Negative) Urine Ketones Negative (Negative) Urine Blood Negative (Negative) Urine Nitrite Negative (Negative) Urine Bilirubin Negative (Negative) Urine Urobilinogen <2.0 (<2.0) mg/dL Ur Leukocyte Esterase Moderate H (Negative) Urine RBC 1 (0-5) /hpf Urine WBC 12 H (0-5) /hpf Ur Squamous Epith Cells 6 H (0-4) /hpf Urine Mucus Occasional H (None) /hpf Influenza Type A RNA Not Detected (Not Detectd) Influenza Type B (PCR) Not Detected (Not Detectd) 02/15/18 02/15/18 Range/Units 20:09 20:09 WBC (3.8-10.6) k/uL RBC (3.80-5.40) m/uL Hgb (11.4-16.0) gm/dL Hct (34.0-46.0) % MCV (80.0-100.0) fL MCH (25.0-35.0) pg MCHC (31.0-37.0) g/dL RDW (11.5-15.5) % Plt Count (150-450) k/uL Neutrophils % % Lymphocytes % % Monocytes % % Eosinophils % % Basophils % % Neutrophils # (1.3-7.7) k/uL Lymphocytes # (1.0-4.8) k/uL Monocytes # (0-1.0) k/uL Eosinophils # (0-0.7) k/uL Basophils # (0-0.2) k/uL Hypochromasia Anisocytosis Sodium 141 (137-145) mmol/L Potassium 4.1 (3.5-5.1) mmol/L Chloride 107 (98-107) mmol/L Carbon Dioxide 25 (22-30) mmol/L Anion Gap 9 mmol/L BUN 31 H (7-17) mg/dL Creatinine 1.08 H (0.52-1.04) mg/dL Est GFR (CKD-EPI)AfAm 80 (>60 ml/min/1.73 sqM) Est GFR (CKD-EPI)NonAf 69 (>60 ml/min/1.73 sqM) Glucose 85 (74-99) mg/dL Plasma Lactic Acid Corey 0.7 (0.7-2.0) mmol/L Calcium 10.0 (8.4-10.2) mg/dL Total Bilirubin 0.3 (0.2-1.3) mg/dL AST 84 H (14-36) U/L ALT 97 H (9-52) U/L Alkaline Phosphatase 91 (38-126) U/L Total Protein 7.7 (6.3-8.2) g/dL Albumin 4.8 (3.5-5.0) g/dL Urine Color Urine Appearance (Clear) Urine pH (5.0-8.0) Ur Specific [place] (1.001-1.035) Urine Protein (Negative) Urine Glucose (UA) (Negative) Urine Ketones (Negative) Urine Blood (Negative) Urine Nitrite (Negative) Urine Bilirubin (Negative) Urine Urobilinogen (<2.0) mg/dL Ur Leukocyte Esterase (Negative) Urine RBC (0-5) /hpf Urine WBC (0-5) /hpf Ur Squamous Epith Cells (0-4) /hpf Urine Mucus (None) /hpf Influenza Type A RNA (Not Detectd) Influenza Type B (PCR) (Not Detectd) - Radiology Data Radiology results: report reviewed, image reviewed Two-view x-ray of the chest is obtained. Report is reviewed in its entirety. Impression by Dr. Harris shows no active cardiopulmonary disease. No change. Disposition Clinical Impression: Dehydration Disposition: HOME SELF-CARE Condition: Good Instructions: Dehydration (ED) Additional Instructions: Increase fluids. Follow-up with your primary care physician for recheck in 1-2 days. Return immediately for any new, worsening, or concerning symptoms. Is patient prescribed a controlled substance at d/c from ED?: No Referrals: Dayo Vidal DO [Primary Care Provider] - 1-2 days
[2018-02-15 20:25] LABS: Appearance,Urine Cloudy (Clear); Bilirubin,Urine Negative (Negative); Blood,Urine Negative (Negative); Color,Urine Yellow; Glucose,Urine (UA) Negative (Negative); Ketones,Urine Negative (Negative); Leukocyte Esterase,Urine Moderate (Negative); Mucus,Urine Occasional /hpf; Nitrite,Urine Negative (Negative); PH, Urine 7.5 (5.0-8.0); Protein,Urine Trace (Negative); RBC,Urine 1 /hpf (0-5); Specific Gravity,Urine 1.026 (1.001-1.035); Squamous Epithelial Cell,Urine 6 /hpf (0-4); Urobilinogen,Urine <2.0 mg/dL (<2.0); WBC,Urine 12 /hpf (0-5)
[2018-02-15 20:29] LABS: Anisocytosis Slight; Basophils % (A) 0 %; Eosinophils # (A) 0.1 k/uL (0-0.7); Eosinophils % (A) 1 %; HCT 40.4 % (34.0-46.0); HGB 12.6 gm/dL (11.4-16.0); Hypochromasia Slight; Lymphocytes # (A) 0.8 k/uL (1.0-4.8); Lymphocytes % (A) 13 %; MCHC 31.2 g/dL (31.0-37.0); MCV 83.4 fL (80.0-100.0); Mean Platelet Volume 6.4; Monocytes # (A) 0.2 k/uL (0-1.0); Monocytes % (A) 3 %; Neutrophils # (A) 4.7 k/uL (1.3-7.7); Neutrophils % (A) 81 %; Platelet Count 356 k/uL (150-450); RBC 4.84 m/uL (3.80-5.40); RDW 16.3 % (11.5-15.5); WBC 5.8 k/uL (3.8-10.6)
[2018-02-15 20:37] LABS: Albumin 4.8 g/dL (3.5-5.0); Potassium 4.1 mmol/L (3.5-5.1); Total Bilirubin 0.3 mg/dL (0.2-1.3); Total Protein 7.7 g/dL (6.3-8.2)
--- NOTE | 2018-02-15 20:41 | XR ---
EXAMINATION TYPE: XR chest 2V DATE OF EXAM: 02/15/2018 COMPARISON: 10/20/2017 HISTORY: Cough and congestion TECHNIQUE: Frontal and lateral views of the chest are obtained. FINDINGS: There is no heart failure nor confluent pneumonic infiltrate. Costophrenic angles are sadiq r. Bony thorax is intact. There are surgical clips at the base of the neck. IMPRESSION: No active cardiopulmonary disease. No change.
[2018-02-15] MEDS ORDERED: SODIUM CHLORIDE 0.9% 1,000 ML IV ONE (20:51)
[2018-02-15 22:43] VITALS: BP 124/81; PULSE 69; TEMP 97.8
== END 2018-02-15 22:30 | disposition home or self-care (01) ==
LOC: EC 18:38
DX: E86.0 Dehydration (principal); H11.89 Other specified disorders of conjunctiva; R23.1 Pallor; R06.02 Shortness of breath; R11.0 Nausea; R53.1 Weakness; R68.83 Chills (without fever); G51.0 Bell's palsy; F32.9 Major depressive disorder, single episode, unspecified; F41.9 Anxiety disorder, unspecified; E89.0 Postprocedural hypothyroidism; Z88.0 Allergy status to penicillin; Z88.1 Allergy status to other antibiotic agents; Z88.5 Allergy status to narcotic agent; Z88.8 Allergy status to other drugs, medicaments and biological substances; Z79.899 Other long term (current) drug therapy; Z86.14 Personal history of Methicillin resistant Staphylococcus aureus infection; Z87.01 Personal history of pneumonia (recurrent); Z86.69 Personal history of other diseases of the nervous system and sense organs; Z85.850 Personal history of malignant neoplasm of thyroid; Z85.831 Personal history of malignant neoplasm of soft tissue; Z92.21 Personal history of antineoplastic chemotherapy; Z92.3 Personal history of irradiation; Z87.09 Personal history of other diseases of the respiratory system
CPT/HCPCS: 36415; 71046; 80053; 81001; 83605; 85025; 87502; 96360; 96361; 99285

== ENCOUNTER 2018-04-03 20:00 | Emergency (ER) | payer OTHER ==
--- NOTE | 2018-04-03 21:19 | ED ---
Chest Pain HPI - General Chief Complaint: Chest Pain Stated Complaint: Chest pain, fall Time Seen by Provider: 04/03/18 20:27 Source: patient Mode of arrival: ambulatory Limitations: no limitations - History of Present Illness Initial Comments: Patient is a 32-year-old female presenting for head injury and chest pain. The patient states that about 4 days ago, she fell on the toilet causing her to fall forward striking her head on the ground. There is no significant loss of consciousness as well as lingering headaches. However, she does have a little bit of lateral neck pain. She states that today, she woke up with shortness breath and right side of her chest which felt like a sharp sensation. It was tender to palpation as well but she denies any type of infectious type symptoms such as coughing or fevers or chills. She's had a little bit of nausea as well. - Related Data Home Medications Medication Instructions Recorded Confirmed Topiramate [Topamax] 50 mg PO BID 08/28/17 04/03/18 Gabapentin [Neurontin] 400 mg PO BID 02/15/18 04/03/18 Melatonin 10 mg PO HS PRN 02/15/18 04/03/18 traMADol HCL [Ultram] 50 mg PO DAILY PRN 02/15/18 04/03/18 Albuterol Inhaler [Ventolin Hfa 2 puff INHALATION RT-Q6H PRN 04/03/18 04/03/18 Inhaler] Allergies Allergy/AdvReac Type Severity Reaction Status Date / Time ciprofloxacin Allergy Dyspnea Verified 04/03/18 20:37 amoxicillin trihydrate AdvReac Severe Nausea & Verified 04/03/18 20:37 [From Augmentin] Vomiting & Diarrhea codeine AdvReac Severe Dyspnea Verified 04/03/18 20:37 potassium clavulanate AdvReac Severe Nausea & Verified 04/03/18 20:37 [From Augmentin] Vomiting & Diarrhea sumatriptan [From Imitrex] AdvReac Dyspnea Verified 04/03/18 20:37 Review of Systems ROS Statement: Those systems with pertinent positive or pertinent negative responses have been documented in the HPI. Constitutional: Negative for chills, fatigue and fever. HENT: Negative for congestion. Respiratory: Negative for chest tightness, shortness of breath and wheezing. Negative for cough Cardiovascular: Positive for chest pain and negative for palpitations. Gastrointestinal: Negative for abdominal pain. Negative for abdominal distention , diarrhea, nausea and vomiting. Genitourinary: Negative for dysuria. Musculoskeletal: Negative for back pain, positive for neck pain and neck stiffness. Skin: for color change. Neurological: Negative for dizziness, speech difficulty, weakness and light- headedness. Psychiatric/Behavioral: Negative for agitation and confusion. Negative for anxiety ROS Other: All systems not noted in ROS Statement are negative. EKG Findings - EKG Comments: EKG Findings:: EKG shows normal sinus rhythm with rate of 93 bpm, [place] interval 138, QRS 82, QTC 422 with PVCs present intermittently. 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 Left lung diapharm paralyzed. History of Any Multi-Drug Resistant Organisms: MRSA Date of last positivie culture/infection: 2008 MDRO Source:: left calf Past Surgical History: Cholecystectomy, Orthopedic Surgery Additional Past Surgical History / Comment(s): Multiple oral surgeries, bronchoscopy, thyroidectomy, myringotomy/tubes bilateral ears, LEFT WRIST SURGERY, g-tube Past Anesthesia/Blood Transfusion Reactions: No Reported Reaction Additional Past Anesthesia/Blood Transfusion Reaction / Comment(s): Use child size ET tube. Past Psychological History: Anxiety, Depression Smoking Status: Never smoker Past Alcohol Use History: None Reported Past Drug Use History: Marijuana - Past Family History Father Family Medical History: Hyperlipidemia, Hypertension, Thyroid Disorder Additional Family Medical History / Comment(s): anxiety depression Mother Family Medical History: Thyroid Disorder Brother(s) Family Medical History: No Reported History Sister(s) Family Medical History: No Reported History Daughter(s) Family Medical History: No Reported History General Exam - General Exam Comments Initial Comments: Constitutional: Pt appears well-developed and well-nourished. No distress. Head: Normocephalic and atraumatic. Eyes: EOM are normal. Neck: Normal range of motion. Neck supple. Cardiovascular: Normal rate, regular rhythm, S1 normal, S2 normal and normal heart sounds. Exam reveals no gallop and no friction rub. No murmur heard. Pulmonary/Chest: Effort normal and breath sounds normal. No tachypnea and no bradypnea. No respiratory distress. No wheezes or rales noted. Abdominal: Soft. Bowel sounds are normal. Pt exhibits no shifting dullness, no distension, no pulsatile liver, no fluid wave, no abdominal bruit and no ascites. There is no rigidity, no rebound, no guarding, no tenderness at McBurney's point and negative Hopper's sign. There is no tenderness. Musculoskeletal: Normal range of motion. No C-spine tenderness Neurological: Pt is alert and oriented to person, place, and time. No cranial nerve deficit. Skin: Skin is warm and dry. No rash noted. Pt is not diaphoretic. No erythema. No pallor. Diffuse ecchymosis of the forehead, positive raccoon eyes bilaterally Psychiatric: Pt has a normal mood and affect. Pt behavior is normal. Thought content normal. Limitations: no limitations Course Vital Signs 04/03/18 04/03/18 04/03/18 20:10 21:00 23:01 Temperature 98.0 F 98.1 F Pulse Rate 99 86 77 Respiratory 20 11 L 15 Rate Blood Pressure 110/75 97/74 105/76 O2 Sat by Pulse 100 97 99 Oximetry Chest Pain MDM - MDM Laboratory studies showed that there is no significant leukocytosis and from a cardiac standpoint, d-dimer was noted to be negative. EKG was unremarkable and troponin was also unremarkable. Chest x-ray was negative as well.It was explained that while there does not appear to be an emergent process, the etiology of the symptoms are still unclear but possibly related to muscle strain and may need further workup as an outpatient if symptoms continue. Explained all labs and diagnostic test results and that we will discharge the patient home and patient is to follow up with PCP in 1-2 days and return to the ED if symptoms worsen. Pt is agreeable to plan. Head CT and cervical C-spine CT was also negative for acute pathology. Disposition Clinical Impression: Chest pain, Elevated liver enzymes Disposition: HOME SELF-CARE Condition: Good Instructions (If sedation given, give patient instructions): Chest Pain (ED) Is patient prescribed a controlled substance at d/c from ED?: No Referrals: Dayo Vidal DO [Primary Care Provider] - 1-2 days Time of Disposition: 22:56
[2018-04-03 21:24] LABS: Anisocytosis Slight; Basophils % (A) 0 %; Eosinophils # (A) 0.1 k/uL (0-0.7); Eosinophils % (A) 1 %; HCT 39.1 % (34.0-46.0); Hypochromasia Slight; Lymphocytes # (A) 0.4 k/uL (1.0-4.8); Lymphocytes % (A) 4 %; MCH 26.8 pg (25.0-35.0); MCHC 30.7 g/dL (31.0-37.0); MCV 87.1 fL (80.0-100.0); Mean Platelet Volume 6.6; Monocytes # (A) 0.4 k/uL (0-1.0); Monocytes % (A) 4 %; Neutrophils # (A) 10.4 k/uL (1.3-7.7); Neutrophils % (A) 91 %; Platelet Count 388 k/uL (150-450); RBC 4.49 m/uL (3.80-5.40); RDW 19.3 % (11.5-15.5); WBC 11.3 k/uL (3.8-10.6)
[2018-04-03 21:33] LABS: Albumin 5.4 g/dL (3.5-5.0); Calcium 10.4 mg/dL (8.4-10.2); Magnesium 2.5 mg/dL (1.6-2.3); Potassium 3.7 mmol/L (3.5-5.1); Total Bilirubin 0.6 mg/dL (0.2-1.3); Total Protein 8.4 g/dL (6.3-8.2)
[2018-04-03 21:36] LABS: D-Dimer 0.53 mg/L FEU (<0.60); INR 0.9 (<1.2); Partial Thromboplastin Time 32.3 sec (22.0-30.0); Prothrombin Time 9.8 sec (9.0-12.0)
--- NOTE | 2018-04-03 22:05 | XR ---
EXAMINATION TYPE: XR chest 2V DATE OF EXAM: 04/03/2018 COMPARISON: 02/15/2018 HISTORY: Chest pain TECHNIQUE: Frontal and lateral views of the chest are obtained. FINDINGS: There is no heart failure nor confluent pneumonic infiltrate. Costophrenic angles are sadiq r. There are chest leads. Bony thorax is intact. There is previous surgery at the base of the neck. IMPRESSION: No active cardiopulmonary disease. Normal heart. No adverse change compared to old exam.
--- NOTE | 2018-04-03 22:11 | CT ---
EXAMINATION TYPE: CT brain dustin wo con DATE OF EXAM: 04/03/2018 COMPARISON: None HISTORY: Fall injury, facial bruising CT DLP: 1127 mGycm Automated exposure control for dose reduction was used. TECHNIQUE: CT scan of the head and cervical spine are performed without contrast. FINDINGS: Ventricles and sulci appear normal. There is no mass effect nor midline shift. There is n o sign of intracranial hemorrhage. Calvarium is intact. There is mucosal thickening in the maxillary ethmoid frontal sinuses. Cervical vertebra have normal alignment. Posterior elements are intact. There is no compression fract ure. Skull base is intact. Prevertebral soft tissues appear normal. IMPRESSION: Negative CT scan of the brain. Sinusitis. Negative CT scan of the cervical spine. No fracture seen.
[2018-04-03 23:02] VITALS: BP 105/76; PULSE 77; RESP 15; TEMP 98.1
== END 2018-04-03 23:00 | disposition home or self-care (01) ==
LOC: EC 20:00
DX: R07.9 Chest pain, unspecified (principal); R74.8 Abnormal levels of other serum enzymes; S00.83XA Contusion of other part of head, initial encounter; S05.11XA Contusion of eyeball and orbital tissues, right eye, initial encounter; S05.12XA Contusion of eyeball and orbital tissues, left eye, initial encounter; R11.0 Nausea; M54.2 Cervicalgia; M79.7 Fibromyalgia; Z88.0 Allergy status to penicillin; Z88.1 Allergy status to other antibiotic agents; Z88.5 Allergy status to narcotic agent; Z88.8 Allergy status to other drugs, medicaments and biological substances; Z79.899 Other long term (current) drug therapy; Z86.14 Personal history of Methicillin resistant Staphylococcus aureus infection; Z85.850 Personal history of malignant neoplasm of thyroid; Z85.831 Personal history of malignant neoplasm of soft tissue; E89.0 Postprocedural hypothyroidism; Z92.21 Personal history of antineoplastic chemotherapy; Z92.3 Personal history of irradiation; Z87.09 Personal history of other diseases of the respiratory system; Z86.69 Personal history of other diseases of the nervous system and sense organs; Z90.49 Acquired absence of other specified parts of digestive tract; W01.198A Fall on same level from slipping, tripping and stumbling with subsequent striking against other object, initial encounter
CPT/HCPCS: 36415; 70450; 71046; 72125; 80053; 81025; 83735; 84484; 85025; 85379; 85610; 85730; 93005; 99284

== ENCOUNTER 2018-05-31 00:18 | Emergency (ER) | payer OTHER ==
[2018-05-31] MEDS ORDERED: SODIUM CHLORIDE 0.9% 500 ML 500 ML IV STA (01:28)
[2018-05-31] MEDS ORDERED: MAG HYDROX/AL HYDROX/SIMETH 30 ML, HYOSCYAMINE ELIXIR 10 ML, CIMETIDINE HCL 300 MG, LID... PO STA ×4 (01:31)
[2018-05-31 02:01] LABS: Anisocytosis Slight; Basophils % (A) 0 %; Eosinophils # (A) 0.1 k/uL (0-0.7); Eosinophils % (A) 2 %; HCT 35.9 % (34.0-46.0); HGB 10.9 gm/dL (11.4-16.0); Hypochromasia Marked; Lymphocytes # (A) 0.8 k/uL (1.0-4.8); Lymphocytes % (A) 12 %; MCH 26.3 pg (25.0-35.0); MCHC 30.4 g/dL (31.0-37.0); MCV 86.5 fL (80.0-100.0); Mean Platelet Volume 6.4; Monocytes # (A) 0.3 k/uL (0-1.0); Monocytes % (A) 5 %; Neutrophils % (A) 77 %; Platelet Count 442 k/uL (150-450); RBC 4.14 m/uL (3.80-5.40); RDW 16.2 % (11.5-15.5); WBC 6.5 k/uL (3.8-10.6)
[2018-05-31 02:09] LABS: ALT 25 U/L (9-52); AST 22 U/L (14-36); Albumin 4.6 g/dL (3.5-5.0); Alkaline Phosphatase 102 U/L (38-126); Amylase 32 U/L (30-110); Anion Gap 9 mmol/L; Blood Urea Nitrogen 28 mg/dL (7-17); Calcium 9.8 mg/dL (8.4-10.2); Carbon Dioxide 28 mmol/L (22-30); Chloride 104 mmol/L (98-107); Glucose 92 mg/dL (74-99); Lipase 102 U/L (23-300); Potassium 3.7 mmol/L (3.5-5.1); Sodium 141 mmol/L (137-145); Total Bilirubin 0.2 mg/dL (0.2-1.3); Total Protein 7.2 g/dL (6.3-8.2)
[2018-05-31 02:11] LABS: Appearance,Urine Clear (Clear); Bilirubin,Urine Negative (Negative); Blood,Urine Negative (Negative); Color,Urine Yellow; Glucose,Urine (UA) Negative (Negative); Ketones,Urine Negative (Negative); Leukocyte Esterase,Urine Negative (Negative); Nitrite,Urine Negative (Negative); PH, Urine 5.5 (5.0-8.0); Protein,Urine Trace (Negative); Specific Gravity,Urine 1.032 (1.001-1.035); Urobilinogen,Urine <2.0 mg/dL (<2.0)
--- NOTE | 2018-05-31 02:25 | XR ---
EXAM: XR Abdomen, 1 View CLINICAL HISTORY: abdominal pain TECHNIQUE: Frontal upright view of the abdomen/pelvis. COMPARISON: CT abdomen and pelvis from 06-08-17 FINDINGS: Gastrointestinal tract: Nonspecific bowel gas pattern. Moderate amount of stool in the colon. No dilation. Bones/joints: Unremarkable. T-shaped IUD is again noted. 2 adjacent linear radiopaque foreign objects in region of the stomach are again noted. Cholecystectomy clips. IMPRESSION: Nonspecific bowel gas pattern.
[2018-05-31] MEDS ORDERED: HYDROmorphone 1 MG/ML 1 ML SYRINGE IVP STA (02:41)
[2018-05-31] MEDS ORDERED: ONDANSETRON 4 MG/2 ML VIAL IVP STA (02:41)
--- NOTE | 2018-05-31 03:24 | ED ---
Abdominal Pain HPI - General Source: patient Mode of arrival: ambulatory Limitations: no limitations <Caitiln Modi - Last Filed: 05/31/18 04:36> <Maryuri Whatley - Last Filed: 06/01/18 03:21> - General Chief Complaint: Abdominal Pain Stated Complaint: Abdominal Pain Time Seen by Provider: 05/31/18 01:11 - History of Present Illness Initial Comments: 33-year-old female patient presents to the emergency department today for evaluation of midepigastric abdominal pain. Patient states she's had the pain for the last 2 days. The patient states the pain has been gradually worsening. Patient states she is able tolerate oral intake which doesn't change the pain but her appetite has been decreased. Patient did have a feeding tube removed one year ago. Patient says she has had infection previously to the site and this does feel similar to that. She denies any fevers or chills with this. Denies any vomiting but has been nauseous. Denies any constipation or diarrhea. Patient has not taken any medications for her symptoms. Patient is eating wheat thins and drinking Mountain Dew during examination. Patient denies any recent rash, shortness breath, chest pain, back pain, numbness, tingling, di zziness, weakness, hematuria, dysuria, urinary urgency, urinary frequency, headache, visual changes, or any other complaints. (Caitlin Modi) - Related Data Home Medications Medication Instructions Recorded Confirmed Gabapentin [Neurontin] 400 mg PO BID 02/15/18 05/31/18 Melatonin 10 mg PO HS PRN 02/15/18 05/31/18 traMADol HCL [Ultram] 50 mg PO DAILY PRN 02/15/18 05/31/18 Albuterol Inhaler [Ventolin Hfa 2 puff INHALATION RT-Q6H PRN 04/03/18 05/31/18 Inhaler] Previous Rx's Medication Instructions Recorded Famotidine [Pepcid] 20 mg PO HS #30 tablet 05/31/18 Allergies Allergy/AdvReac Type Severity Reaction Status Date / Time ciprofloxacin Allergy Dyspnea Verified 04/03/18 20:37 amoxicillin trihydrate AdvReac Severe Nausea & Verified 04/03/18 20:37 [From Augmentin] Vomiting & Diarrhea codeine AdvReac Severe Dyspnea Verified 04/03/18 20:37 potassium clavulanate AdvReac Severe Nausea & Verified 04/03/18 20:37 [From Augmentin] Vomiting & Diarrhea sumatriptan [From Imitrex] AdvReac Dyspnea Verified 04/03/18 20:37 Review of Systems ROS Other: All systems not noted in ROS Statement are negative. <Caitlin Modi - Last Filed: 05/31/18 04:36> ROS Other: All systems not noted in ROS Statement are negative. <Maryuri Whatley P - Last Filed: 06/01/18 03:21> ROS Statement: Those systems with pertinent positive or pertinent negative responses have been documented in the HPI. 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 Left lung diapharm paralyzed. History of Any Multi-Drug Resistant Organisms: MRSA Date of last positivie culture/infection: 2008 MDRO Source:: left calf Past Surgical History: Cholecystectomy, Orthopedic Surgery Additional Past Surgical History / Comment(s): Multiple oral surgeries, bronchoscopy, thyroidectomy, myringotomy/tubes bilateral ears, LEFT WRIST SURGERY, g-tube Past Anesthesia/Blood Transfusion Reactions: No Reported Reaction Additional Past Anesthesia/Blood Transfusion Reaction / Comment(s): Use child size ET tube. Past Psychological History: Anxiety, Depression Smoking Status: Never smoker Past Alcohol Use History: None Reported Past Drug Use History: Marijuana - Past Family History Father Family Medical History: Hyperlipidemia, Hypertension, Thyroid Disorder Additional Family Medical History / Comment(s): anxiety depression Mother Family Medical History: Thyroid Disorder Brother(s) Family Medical History: No Reported History Sister(s) Family Medical History: No Reported History Daughter(s) Family Medical History: No Reported History <Caitlin Modi - Last Filed: 05/31/18 04:36> General Exam Limitations: no limitations General appearance: alert, in no apparent distress, other (Physical well- developed, well-nourished adult female patient in no acute distress. Vital signs upon presentation are temperature 97.4F, pulse 89, respirations 20, blood pressure 134/98, pulse ox 100% on room air.) Eye exam: Present: normal appearance, PERRL, EOMI. Absent: scleral icterus, conjunctival injection, periorbital swelling ENT exam: Present: normal exam, normal oropharynx, mucous membranes moist Respiratory exam: Present: normal lung sounds bilaterally. Absent: respiratory distress, wheezes, rales, rhonchi, stridor Cardiovascular Exam: Present: regular rate, normal rhythm, normal heart sounds. Absent: systolic murmur, diastolic murmur, rubs, gallop, clicks GI/Abdominal exam: Present: soft, tenderness (Midepigastric tenderness), normal bowel sounds. Absent: distended, guarding, rebound, rigid Neurological exam: Present: alert, oriented X3, CN II-XII intact Psychiatric exam: Present: normal affect, normal mood Skin exam: Present: warm, dry, intact, normal color. Absent: rash <Caitlin Modi - Last Filed: 05/31/18 04:36> Course Vital Signs 05/31/18 05/31/18 05/31/18 00:25 03:45 04:14 Temperature 97.4 F L 98.3 F Pulse Rate 89 94 99 Respiratory 20 16 18 Rate Blood Pressure 134/98 139/96 124/92 O2 Sat by Pulse 100 100 100 Oximetry Medical Decision Making - Lab Data Result diagrams: 05/31/18 01:53 05/31/18 01:53 - Radiology Data Radiology results: report reviewed, image reviewed <Caitlin Modi - Last Filed: 05/31/18 04:36> - Lab Data Result diagrams: 05/31/18 01:53 05/31/18 01:53 <Maryuri Whatley - Last Filed: 06/01/18 03:21> - Medical Decision Making 33-year-old female patient presents to the emergency department today for evaluation of midepigastric abdominal pain. Physical examination did reveal midepigastric tenderness. His have previous gastrostomy tube, removed one year ago. Patient states she did have infection to the site in the past and the pain feels similar. Labs reviewed and are unremarkable. CT abdomen and pelvis was obtained and showed no acute findings. Did discuss findings and results with the patient. She'll be discharged home at this time. Her primary care phy sician discuss referral to gastroenterology for possible upper GI scope. Return parameters were discussed in detail. She verbalizes understanding and agrees this plan. (Caitlin Modi) I was available for consultation in the emergency department. The history and physical exam were done by the Midlevel Provider. Medical decision making was done by the Midlevel Provider. The Midlevel Provider did not contact me for this patient's care. I was not directly involved in this patient's care. Chart was dictated using [email or web address] dictation software. Attempts were made to correct any dictation errors however some typographical errors may persist. (Maryuri Wahtley) - Lab Data Lab Results 05/31/18 05/31/18 05/31/18 Range/Units 01:53 01:53 01:53 WBC 6.5 (3.8-10.6) k/uL RBC 4.14 (3.80-5.40) m/uL Hgb 10.9 L (11.4-16.0) gm/dL Hct 35.9 (34.0-46.0) % MCV 86.5 (80.0-100.0) fL MCH 26.3 (25.0-35.0) pg MCHC 30.4 L (31.0-37.0) g/dL RDW 16.2 H (11.5-15.5) % Plt Count 442 (150-450) k/uL Neutrophils % 77 % Lymphocytes % 12 % Monocytes % 5 % Eosinophils % 2 % Basophils % 0 % Neutrophils # 5.0 (1.3-7.7) k/uL Lymphocytes # 0.8 L (1.0-4.8) k/uL Monocytes # 0.3 (0-1.0) k/uL Eosinophils # 0.1 (0-0.7) k/uL Basophils # 0.0 (0-0.2) k/uL Hypochromasia Marked Anisocytosis Slight Sodium 141 (137-145) mmol/L Potassium 3.7 (3.5-5.1) mmol/L Chloride 104 (98-107) mmol/L Carbon Dioxide 28 (22-30) mmol/L Anion Gap 9 mmol/L BUN 28 H (7-17) mg/dL Creatinine 0.72 (0.52-1.04) mg/dL Est GFR (CKD-EPI)AfAm >90 (>60 ml/min/1.73 sqM) Est GFR (CKD-EPI)NonAf >90 (>60 ml/min/1.73 sqM) Glucose 92 (74-99) mg/dL Plasma Lactic Acid Corey 0.8 (0.7-2.0) mmol/L Calcium 9.8 (8.4-10.2) mg/dL Total Bilirubin 0.2 (0.2-1.3) mg/dL AST 22 (14-36) U/L ALT 25 (9-52) U/L Alkaline Phosphatase 102 (38-126) U/L Total Protein 7.2 (6.3-8.2) g/dL Albumin 4.6 (3.5-5.0) g/dL Amylase 32 (30-110) U/L Lipase 102 (23-300) U/L Urine Color Urine Appearance (Clear) Urine pH (5.0-8.0) Ur Specific Saline (1.001-1.035) Urine Protein (Negative) Urine Glucose (UA) (Negative) Urine Ketones (Negative) Urine Blood (Negative) Urine Nitrite (Negative) Urine Bilirubin (Negative) Urine Urobilinogen (<2.0) mg/dL Ur Leukocyte Esterase (Negative) 05/31/18 Range/Units 02:02 WBC (3.8-10.6) k/uL RBC (3.80-5.40) m/uL Hgb (11.4-16.0) gm/dL Hct (34.0-46.0) % MCV (80.0-100.0) fL MCH (25.0-35.0) pg MCHC (31.0-37.0) g/dL RDW (11.5-15.5) % Plt Count (150-450) k/uL Neutrophils % % Lymphocytes % % Monocytes % % Eosinophils % % Basophils % % Neutrophils # (1.3-7.7) k/uL Lymphocytes # (1.0-4.8) k/uL Monocytes # (0-1.0) k/uL Eosinophils # (0-0.7) k/uL Basophils # (0-0.2) k/uL Hypochromasia Anisocytosis Sodium (137-145) mmol/L Potassium (3.5-5.1) mmol/L Chloride (98-107) mmol/L Carbon Dioxide (22-30) mmol/L Anion Gap mmol/L BUN (7-17) mg/dL Creatinine (0.52-1.04) mg/dL Est GFR (CKD-EPI)AfAm (>60 ml/min/1.73 sqM) Est GFR (CKD-EPI)NonAf (>60 ml/min/1.73 sqM) Glucose (74-99) mg/dL Plasma Lactic Acid Corey (0.7-2.0) mmol/L Calcium (8.4-10.2) mg/dL Total Bilirubin (0.2-1.3) mg/dL AST (14-36) U/L ALT (9-52) U/L Alkaline Phosphatase (38-126) U/L Total Protein (6.3-8.2) g/dL Albumin (3.5-5.0) g/dL Amylase (30-110) U/L Lipase (23-300) U/L Urine Color Yellow Urine Appearance Clear (Clear) Urine pH 5.5 (5.0-8.0) Ur Specific Saline 1.032 (1.001-1.035) Urine Protein Trace H (Negative) Urine Glucose (UA) Negative (Negative) Urine Ketones Negative (Negative) Urine Blood Negative (Negative) Urine Nitrite Negative (Negative) Urine Bilirubin Negative (Negative) Urine Urobilinogen <2.0 (<2.0) mg/dL Ur Leukocyte Esterase Negative (Negative) - Radiology Data One view x-ray of the abdomen is obtained. Report reviewed in its entirety. Impression by Dr. Marvin shows nonspecific bowel gas pattern. CT abdomen and pelvis contrast was obtained. Report was reviewed in its entirety. Impression by Dr. Marvin shows no acute findings. (Caitlin Modi) Disposition Is patient prescribed a controlled substance at d/c from ED?: No Time of Disposition: 03:58 <Caitlin Modi - Last Filed: 05/31/18 04:36> <Maryuri Whatley - Last Filed: 06/01/18 03:21> Clinical Impression: Midepigastric pain Disposition: HOME SELF-CARE Condition: Good Instructions (If sedation given, give patient instructions): Abdominal Pain (ED) Additional Instructions: Take medication as directed. Follow-up through primary care physician for recheck in 1-2 days. Return to the emergency department for any new, worsening, or concerning symptoms . Prescriptions: Famotidine [Pepcid] 20 mg PO HS #30 tablet Referrals: Dayo Vidal DO [Primary Care Provider] - 1-2 days
--- NOTE | 2018-05-31 03:35 | CT ---
EXAM: CT Abdomen and Pelvis With Intravenous Contrast CLINICAL HISTORY: abdominal Pain TECHNIQUE: Axial computed tomography images of the abdomen and pelvis with 70mL of isovue 300 intravenous contrast. DLP is 333.2 mGy-cm. This CT exam was performed using one or more of the following dose reduction techniques: automated exposure control, adjustment of the mA and/or kV according to patient size, and/or use of iterative reconstruction technique. Coronal and sagittal reconstructions are performed COMPARISON: 06-08-17 FINDINGS: Lung bases: Unremarkable. No mass. No consolidation. ABDOMEN: Liver: Small hypodensities scattered in the liver are too small to characterize. Gallbladder and bile ducts: Mild intra-and hepatic biliary duct dilatation is likely related to cholecystectomy. Pancreas: Unremarkable. No mass. No ductal dilation. Spleen: Unremarkable. No splenomegaly. Adrenals: Unremarkable. No mass. Kidneys and ureters: Unremarkable. No solid mass. No hydronephrosis. Stomach and bowel: Unremarkable. No obstruction. No mucosal thickening. PELVIS: Appendix: Normal. Bladder: Unremarkable. No mass. Reproductive: T-shaped IUD, in an anteverted uterus appears to be in satisfactory position. Tampon within vaginal canal. ABDOMEN and PELVIS: Intraperitoneal space: Unremarkable. No free air. No significant fluid collection. Bones/joints: No acute fracture. No dislocation. Soft tissues: Left upper abdominal wall scar. Vasculature: Unremarkable. No abdominal aortic aneurysm. Lymph nodes: Unremarkable. No enlarged lymph nodes. IMPRESSION: No acute findings.
[2018-05-31 04:17] VITALS: BP 124/92; PULSE 99; RESP 18; TEMP 98.3
== END 2018-05-31 04:17 | disposition home or self-care (01) ==
LOC: EC 00:18
DX: R10.13 Epigastric pain (principal); I50.9 Heart failure, unspecified; Z85.831 Personal history of malignant neoplasm of soft tissue; Z85.850 Personal history of malignant neoplasm of thyroid; Z86.14 Personal history of Methicillin resistant Staphylococcus aureus infection; Z79.899 Other long term (current) drug therapy; Z88.0 Allergy status to penicillin; Z88.1 Allergy status to other antibiotic agents; Z88.5 Allergy status to narcotic agent; Z88.8 Allergy status to other drugs, medicaments and biological substances; Z90.49 Acquired absence of other specified parts of digestive tract
CPT/HCPCS: 36415; 80053; 82150; 83605; 83690; 85025; 81003; 74018; 74177; 99284; 96374; 96375; 96361; J2405; J1170; Q9967

== ENCOUNTER 2018-06-20 19:58 | Inpatient (IN) | payer OTHER ==
[2018-06-20 21:14] LABS: Basophils % (A) 0 %; Eosinophils # (A) 0.1 k/uL (0-0.7); Eosinophils % (A) 1 %; HCT 34.3 % (34.0-46.0); HGB 10.4 gm/dL (11.4-16.0); Hypochromasia Marked; Lymphocytes # (A) 0.4 k/uL (1.0-4.8); Lymphocytes % (A) 4 %; MCH 25.5 pg (25.0-35.0); MCHC 30.4 g/dL (31.0-37.0); MCV 83.7 fL (80.0-100.0); Mean Platelet Volume 7.4; Monocytes # (A) 0.3 k/uL (0-1.0); Monocytes % (A) 3 %; Neutrophils # (A) 10.5 k/uL (1.3-7.7); Neutrophils % (A) 92 %; Platelet Count 470 k/uL (150-450); Poikilocytosis Slight; RBC 4.09 m/uL (3.80-5.40); RDW 14.9 % (11.5-15.5); WBC 11.5 k/uL (3.8-10.6)
[2018-06-20 21:20] LABS: ALT 28 U/L (9-52); AST 35 U/L (14-36); Alkaline Phosphatase 102 U/L (38-126); Anion Gap 12 mmol/L; Blood Urea Nitrogen 22 mg/dL (7-17); Calcium 9.7 mg/dL (8.4-10.2); Carbon Dioxide 26 mmol/L (22-30); Chloride 103 mmol/L (98-107); Glucose 62 mg/dL (74-99); Potassium 4.1 mmol/L (3.5-5.1); Sodium 141 mmol/L (137-145); Total Bilirubin 0.3 mg/dL (0.2-1.3); Total Protein 7.9 g/dL (6.3-8.2)
--- NOTE | 2018-06-20 21:27 | XR ---
EXAMINATION TYPE: XR chest 2V DATE OF EXAM: 06/20/2018 COMPARISON: 04/03/2018 HISTORY: 33-year-old female with cough and pain TECHNIQUE: PA and lateral views FINDINGS: Heart is normal size. Aorta and pulmonary vasculature within normal limits. Similar slight elevation of the left hemidiaphragm. Some similar adjacent partial silhouetting of the peak of the left hemidia phragm, particularly on the lateral view. No consolidation or pleural effusion otherwise seen. Surgic al clips in the region of the neck. Metallic stays in the abdomen likely from prior gastrostomy tube. IMPRESSION: Similar slight elevation of the left hemidiaphragm with adjacent atelectasis. Otherwise, no acute car diopulmonary process.
[2018-06-20] MEDS ORDERED: SODIUM CHLORIDE 0.9% 1,000 ML IV STA (22:29)
--- NOTE | 2018-06-20 23:41 | ED ---
Chest Pain HPI - General Source: patient Mode of arrival: ambulatory Limitations: no limitations <Romario Alexis - Last Filed: 06/20/18 23:17> <Maryuri Whatley - Last Filed: 06/21/18 00:53> - General Chief Complaint: Chest Pain Stated Complaint: Chest pain Time Seen by Provider: 06/20/18 20:35 - History of Present Illness Initial Comments: Patient is a 33-year-old female with a complex medical history presenting to the emergency department with right-sided chest pain. Patient states that she developed chest pain yesterday but has progressively gotten worse. Patient states that the pain is "under her right breast". Patient also reports pain in the back near the left thoracic region. Patient also reports an upper respiratory infection as well as otalgia that started about a week ago that has been slowly improving. Patient states that the chest pain is exacerbated when she is coughing. Patient denies any blurry vision, lightheadedness, dizziness. Patient does report nausea for the past 3 days with 2 episodes of vomiting but was unable to bring up any contents. Patient denies diarrhea. Patient states that today the nausea has improved and she was able to have fluids and food. (Romario Alexis) - Related Data Home Medications Medication Instructions Recorded Confirmed Gabapentin [Neurontin] 400 mg PO BID 02/15/18 05/31/18 Melatonin 10 mg PO HS PRN 02/15/18 05/31/18 traMADol HCL [Ultram] 50 mg PO DAILY PRN 02/15/18 05/31/18 Albuterol Inhaler [Ventolin Hfa 2 puff INHALATION RT-Q6H PRN 04/03/18 05/31/18 Inhaler] Previous Rx's Medication Instructions Recorded Famotidine [Pepcid] 20 mg PO HS #30 tablet 05/31/18 Allergies Allergy/AdvReac Type Severity Reaction Status Date / Time ciprofloxacin Allergy Dyspnea Verified 06/20/18 20:25 amoxicillin trihydrate AdvReac Severe Nausea & Verified 06/20/18 20:25 [From Augmentin] Vomiting & Diarrhea codeine AdvReac Severe Dyspnea Verified 06/20/18 20:25 potassium clavulanate AdvReac Severe Nausea & Verified 06/20/18 20:25 [From Augmentin] Vomiting & Diarrhea sumatriptan [From Imitrex] AdvReac Dyspnea Verified 06/20/18 20:25 Review of Systems ROS Other: All systems not noted in ROS Statement are negative. <Romario Alexis - Last Filed: 06/20/18 23:17> ROS Other: All systems not noted in ROS Statement are negative. <ChacortaMaryuri P - Last Filed: 06/21/18 00:53> ROS Statement: Those systems with pertinent positive or pertinent negative responses have been documented in the HPI. EKG Findings - EKG Comments: EKG Findings:: EKG performed at [2040]: vENTRICULAR RATE: 84 TX interval [136]. QRS [ 78]. QT/QTc [ 488/579]. P-R-T axes [address] changes. 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 Left lung diapharm paralyzed. History of Any Multi-Drug Resistant Organisms: MRSA Date of last positivie culture/infection: 2008 MDRO Source:: left calf Past Surgical History: Cholecystectomy, Orthopedic Surgery Additional Past Surgical History / Comment(s): Multiple oral surgeries, bronchoscopy, thyroidectomy, myringotomy/tubes bilateral ears, LEFT WRIST SURGERY, g-tube Past Anesthesia/Blood Transfusion Reactions: No Reported Reaction Additional Past Anesthesia/Blood Transfusion Reaction / Comment(s): Use child size ET tube. Past Psychological History: Anxiety, Depression Smoking Status: Never smoker Past Alcohol Use History: None Reported Past Drug Use History: Marijuana - Past Family History Father Family Medical History: Hyperlipidemia, Hypertension, Thyroid Disorder Additional Family Medical History / Comment(s): anxiety depression Mother Family Medical History: Thyroid Disorder Brother(s) Family Medical History: No Reported History Sister(s) Family Medical History: No Reported History Daughter(s) Family Medical History: No Reported History <Romario Alexis - Last Filed: 06/20/18 23:17> General Exam Limitations: no limitations General appearance: alert, in no apparent distress Head exam: Present: atraumatic, normocephalic, normal inspection Eye exam: Present: normal appearance, PERRL, EOMI Pupils: Present: normal accommodation ENT exam: Present: mucous membranes dry. Absent: TM's normal bilaterally (Left perforated tympanic membrane) Neck exam: Present: normal inspection, full ROM, lymphadenopathy (Left submandibular). Absent: tenderness Respiratory exam: Present: normal lung sounds bilaterally. Absent: respiratory distress Cardiovascular Exam: Present: regular rate, normal rhythm, normal heart sounds GI/Abdominal exam: Present: soft, other (Negative Hopper sign). Absent: tenderness, guarding, rebound, rigid Extremities exam: Present: normal inspection, full ROM Back exam: Absent: CVA tenderness (R), CVA tenderness (L) Neurological exam: Present: alert, oriented X3 Psychiatric exam: Present: normal affect, normal mood Skin exam: Absent: warm (Cold Upper extremities), rash <Romario Alexis - Last Filed: 06/20/18 23:17> Course Vital Signs 06/20/18 20:20 Temperature 98.4 F Pulse Rate 85 Respiratory 22 Rate Blood Pressure 104/62 O2 Sat by Pulse [address] [facility] - Differential Diagnosis Pleurisy-Other - Wells Criteria Clinical Symptoms of DVT: (0) No No Alternative Diagnosis: (0) No Immobilization of Surgery in Previous 4 Weeks: (0) No Previous DVT/PE: (0) No Hemoptysis: (0) No - PERC Rule Heart Rate < 100: (0) No No Prior History pf DVT/PE: (0) No No Recent Trauma or Surgery: (0) No Hemoptysis: (0) No No Exogenous Estrogen: (0) No No Clinical Signs Suggesting DVT: (0) No <Romario Alexis - Last Filed: 06/20/18 23:17> <Maryuri Whatley - Last Filed: 06/21/18 00:53> - [facility] Patient is a 33-year-old female with complex medical history presenting to emergency Department for chest pain. CBC, CMP and chest x-ray were ordered. CBC showing slight increase in white blood cells suggesting possible infection although patient does not have fever. Chest x-ray is negative. EKG is unrema rkable for ST elevation or other acute abnormalities. Troponin was also negative. (Romario Alexis) Patient care was signed out to me by Romario - patient is a 33-year-old female with extensive past medical history who presented with pleuritic chest pain CBC showed leukocytosis and elevated platelets, chronic anemia. BNP was relatively unremarkable. Patient continued to have discomfort and a computed tomography scan was ordered. Computed tomography scan was suggestive of a bilateral pneumonia. All pending the computed tomography scan the patient did have a repeat blood glucose and was noted to have a glucose of only 45 despite eating. Given the patient's extensive history, hypoglycemia in the setting of infection I will plan to admit her for IV antibiotics and close monitoring. (Maryuri Whatley) Disposition <Romario Alexsi - Last Filed: 06/20/18 23:17> <Maryuri Whatley - Last Filed: 06/21/18 00:53> Clinical Impression: Pleuritic chest pain, Bilateral pneumonia, Hypoglycemia Disposition: ADMITTED IP TO THIS HOSP Condition: Stable Referrals: Dayo Vidal DO [Primary Care Provider] - 1-2 days
[2018-06-20 23:47] LABS: Glucose,Whole Blood >600 mg/dL (75-99)
[2018-06-20 23:47] LABS: Glucose,Whole Blood 45 mg/dL (75-99)
--- NOTE | 2018-06-21 00:18 | CT ---
EXAM: CT Angiography Chest Without And With Intravenous Contrast CLINICAL HISTORY: ITS.REASON CT Reason: Pain TECHNIQUE: Axial computed tomographic angiography images of the chest without and with intravenous contrast using pulmonary embolism protocol. This CT exam was performed using one or more of the following dose reduction techniques: automated exposure control, adjustment of the mA and/or kV according to patient size, and/or use of iterative reconstruction technique. 3D reconstructed images were created and reviewed. COMPARISON: No relevant prior studies available. FINDINGS: Pulmonary arteries: Unremarkable. No pulmonary embolism. Aorta: No suspicious findings. No thoracic aortic aneurysm. Lungs: Left upper lobe and right middle lobe infiltrates. No mass. Pleural space: Unremarkable. No significant effusion. No pneumothorax. Heart: Unremarkable. No cardiomegaly. No significant pericardial effusion. No evidence of RV dysfunction. Bones/joints: No acute fracture. No dislocation. Soft tissues: Unremarkable. Lymph nodes: Unremarkable. No enlarged lymph nodes. IMPRESSION: Left upper lobe and right middle lobe infiltrates.
[2018-06-21] MEDS ORDERED: AZITHROMYCIN 500 MG in SODIUM CHLORIDE 0.9% 250 ML IVPB STA (00:49)
[2018-06-21] MEDS ORDERED: PNEUMONIA PROTOCOL UTILIZED 1 EACH MISC PO PRN (00:50)
[2018-06-21 00:52] LABS: Glucose,Whole Blood 119 mg/dL (75-99)
[2018-06-21 08:46] LABS: Glucose,Whole Blood 70 mg/dL (75-99)
[2018-06-21 08:53] VITALS: BMI 18.1
[2018-06-21] MEDS ORDERED: traMADol 50 MG TAB PO PRN (12:02)
[2018-06-21] MEDS ORDERED: ALBUTEROL NEBULIZED 2.5 MG/3 ML INHALATION PRN (12:02)
[2018-06-21 12:05] LABS: Glucose,Whole Blood 105 mg/dL (75-99)
[2018-06-21] MEDS: traMADol 50 MG TAB PO PRN (12:23)
[2018-06-21] MEDS: SODIUM CHLORIDE 0.9% 1,000 ML IV SCH (12:24)
--- NOTE | 2018-06-21 14:59 | P.HPIM ---
History of Present Illness 33-year-old female with a past medical history of pneumonias multiple episodes in the past came in with pleuritic right-sided chest pain found to have pneumonia complaining of cough with sputum production patient is admitted for pneumonia patient was also found to have hypoglycemia appears to be secondary to sepsis which is improving now. Patient denied any fever chills patient does have leukocytosis patient chest pain is on the right side pleuritic in nature. Patient has an unusual facial contour, basically a small face. Patient is not aware of any of genetic conditions the she has. Patient is presently on Rocephin and azithromycin. Patient had URI-like symptoms started about a week ago which slowly improved but started having this pleuritic chest pain now found to have pneumonia. Review of Systems REVIEW OF SYSTEMS: CONSTITUTIONAL: No fever, no malaise, no fatigue. HEENT: No recent visual problems or hearing problems. Denied any sore throat. CARDIOVASCULAR: orthopnea, PND, no palpitations, no syncope. PULMONARY: No shortness of breath, no hemoptysis. GASTROINTESTINAL: No diarrhea, no nausea, no vomiting, no abdominal pain. NEUROLOGICAL: No headaches, no weakness, no numbness. HEMATOLOGICAL: Denies any bleeding or petechiae. GENITOURINARY: Denies any burning micturition, frequency, or urgency. MUSCULOSKELETAL/RHEUMATOLOGICAL: Denies any joint pain, swelling, or any muscle pain. ENDOCRINE: Denies any polyuria or polydipsia. The rest of the 14-point review of systems is negative. 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 Past Psychological History: Anxiety, Depression Additional Psychological History / Comment(s): Pt resides at her own home, with boyfriend,mother, sister and pts daughter. She is independent. She doesn't own a car, family takes her to [employer]. Smoking Status: Never smoker Past Alcohol Use History: None Reported Additional Past Alcohol Use History / Comment(s): Patient is a lifelong nonsmoker of cigarettes but does use marijuana occasionally. There are 2 dogs and 3 cats in the home as well as a bearded dragon. Patient states she does not provide care for the dragon. 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 She denies any recent travel. Past Drug Use History: None Reported - Past Family History Father Family Medical History: Hyperlipidemia, Hypertension, Thyroid Disorder Additional Family Medical History / Comment(s): anxiety depression Mother Family Medical History: Diabetes Mellitus, Thyroid Disorder Brother(s) Family Medical History: No Reported History Sister(s) Family Medical History: No Reported History Daughter(s) Family Medical History: No Reported History Medications and Allergies Home Medications Medication Instructions Recorded Confirmed Type Gabapentin [Neurontin] 400 mg PO BID 02/15/18 06/21/18 History traMADol HCL [Ultram] 50 - 100 mg PO Q46H PRN 02/15/18 06/21/18 History Albuterol Inhaler [Ventolin Hfa 2 puff INHALATION RT-Q6H PRN 04/03/18 06/21/18 History Inhaler] Erenumab-Aooe [Aimovig 140 mg SQ QMONTH 06/21/18 06/21/18 History Autoinjector] Levothyroxine Sodium [Synthroid] 50 mcg PO DAILY 06/21/18 06/21/18 History Levothyroxine Sodium [Synthroid] 200 mcg PO DAILY 06/21/18 06/21/18 History Ranitidine HCl [Zantac] 150 mg PO BID 06/21/18 06/21/18 History traZODone HCL 50 mg PO HS 06/21/18 06/21/18 History Allergies Allergy/AdvReac Type Severity Reaction Status Date / Time ciprofloxacin Allergy Dyspnea Verified 06/21/18 07:13 amoxicillin trihydrate AdvReac Severe Nausea & Verified 06/21/18 07:13 [From Augmentin] Vomiting & Diarrhea codeine AdvReac Severe Dyspnea Verified 06/21/18 07:13 potassium clavulanate AdvReac Severe Nausea & Verified 06/21/18 07:13 [From Augmentin] Vomiting & Diarrhea sumatriptan [From Imitrex] AdvReac Dyspnea Verified 06/21/18 07:13 Physical Exam Vitals: Vital Signs Temp Pulse Pulse Resp BP BP Pulse Ox 06/21/18 08:35 98.3 F 45 L 18 109/76 90 L 06/21/18 07:10 79 16 06/21/18 06:00 85 96/62 06/21/18 05:46 98.1 F 81 16 06/21/18 05:20 84 145/85 06/21/18 05:10 92 116/73 06/21/18 04:50 90 119/76 06/21/18 04:40 89 114/79 06/21/18 04:20 96 17 118/74 06/21/18 04:10 93 117/73 06/21/18 03:50 93 102/80 06/21/18 03:40 92 116/79 06/21/18 03:20 86 127/82 06/21/18 03:10 89 113/77 06/21/18 02:50 84 118/82 06/21/18 02:40 82 133/93 06/21/18 02:20 86 129/92 06/21/18 02:10 91 125/86 06/21/18 01:58 91 18 110/86 95 06/21/18 01:40 93 106/73 06/21/18 01:20 89 110/86 06/21/18 01:10 93 114/80 06/21/18 00:50 94 109/82 06/21/18 00:40 79 113/84 06/21/18 00:20 81 118/87 06/20/18 23:50 126/91 06/20/18 23:40 73 128/98 06/20/18 20:20 98.4 F 85 22 104/62 95 Intake and Output 06/20/18 06/21/18 06/21/18 22:59 06:59 14:59 Intake Total 700 Balance 700 Intake: IV 700 Azithromycin 500 mg In 250 Sodium Chloride 0.9% 250 ml @ 250 mls/hr IVPB DAILY ROBE Rx#:[id number] Sodium Chloride 0.9% 1, 400 000 ml @ 50 mls/hr IV . Q20H [facility] Rx#:[id number] cefTRIAXone 1 gm In 50 Sodium Chloride 0.9% 50 ml @ 100 mls/hr IVPB Q24HR ROBE Rx#:[id number] Other: Weight 35.471 kg PHYSICAL EXAMINATION: GENERAL: The patient is alert and oriented x3, not in any acute distress. Thin built small face HEENT: Pupils are round and equally reacting to light. EOMI. No scleral icterus. No conjunctival pallor. Normocephalic, atraumatic. No pharyngeal erythema. No thyromegaly. CARDIOVASCULAR: S1 and S2 present. No murmurs, rubs, or gallops. PULMONARY: Chest is clear to auscultation, no wheezing or crackles. Patient does have bronchophony and egophony on the right side posteriorly ABDOMEN: Soft, nontender, nondistended, normoactive bowel sounds. No palpable organomegaly. MUSCULOSKELETAL: No joint swelling or deformity. EXTREMITIES: No cyanosis, clubbing, or pedal edema. NEUROLOGICAL: Gross neurological examination did not reveal any focal deficits. SKIN: No rashes. Results CBC & Chem 7: 06/20/18 20:49 06/20/18 20:49 Labs: Abnormal Lab Results - Last 24 Hours (Table) 06/20/18 06/20/18 06/20/18 Range/Units 20:49 20:49 23:41 WBC 11.5 H (3.8-10.6) k/uL Hgb 10.4 L (11.4-16.0) gm/dL MCHC 30.4 L (31.0-37.0) g/dL Plt Count 470 H (150-450) k/uL Neutrophils # 10.5 H (1.3-7.7) k/uL Lymphocytes # 0.4 L (1.0-4.8) k/uL BUN 22 H (7-17) mg/dL Glucose 62 L (74-99) mg/dL POC Glucose (mg/dL) >600 H (75-99) mg/dL 06/20/18 06/21/18 06/21/18 Range/Units 23:44 00:51 08:31 WBC (3.8-10.6) k/uL Hgb (11.4-16.0) gm/dL MCHC (31.0-37.0) g/dL Plt Count (150-450) k/uL Neutrophils # (1.3-7.7) k/uL Lymphocytes # (1.0-4.8) k/uL BUN (7-17) mg/dL Glucose (74-99) mg/dL POC Glucose (mg/dL) 45 L 119 H 70 L (75-99) mg/dL 06/21/18 Range/Units 12:02 WBC (3.8-10.6) k/uL Hgb (11.4-16.0) gm/dL MCHC (31.0-37.0) g/dL Plt Count (150-450) k/uL Neutrophils # (1.3-7.7) k/uL Lymphocytes # (1.0-4.8) k/uL BUN (7-17) mg/dL Glucose (74-99) mg/dL POC Glucose (mg/dL) 105 H (75-99) mg/dL Thrombosis Risk Factor Assmnt - Choose All That Apply Each Factor Represents 1 point: Abnormal pulmonary function (COPD) Thrombosis Risk Factor Assessment Total Risk Factor Score: 1 Thrombosis Risk Factor Assessment Level: Low Risk Assessment and Plan Plan: Community-acquired pneumonia on the right side involving the right middle lobe and lower lobe: Continue with Rocephin and azithromycin. -Hypoglycemia secondary to sepsis improving now -Rule out pulmonary embolism -Fibro-myalgia -Hypothyroidism -History of rhabdomyosarcoma in the past -Depression -Due to prophylaxis with early ambulation
[2018-06-21 17:12] LABS: Glucose,Whole Blood 95 mg/dL (75-99)
[2018-06-21] MEDS: FAMOTIDINE 20 MG TAB PO SCH (20:30)
[2018-06-21] MEDS: traZODone HCL 50 MG TAB PO SCH (20:30)
[2018-06-21] MEDS: GABAPENTIN 100 MG CAP PO SCH (20:42)
[2018-06-21] MEDS ORDERED: GABAPENTIN 400 MG CAP PO SCH (21:00)
[2018-06-21 21:30] LABS: Glucose,Whole Blood 135 mg/dL (75-99)
[2018-06-22 01:37] LABS: Glucose,Whole Blood 96 mg/dL (75-99)
[2018-06-22] MEDS: LEVOTHYROXINE 125 MCG TAB PO SCH (06:01)
[2018-06-22 07:10] LABS: Glucose,Whole Blood 83 mg/dL (75-99)
[2018-06-22] MEDS: GABAPENTIN 100 MG CAP PO SCH ×2 (07:17→20:18)
[2018-06-22] MEDS: SODIUM CHLORIDE 0.9% 1,000 ML IV SCH (07:17)
[2018-06-22] MEDS: FAMOTIDINE 20 MG TAB PO SCH ×2 (07:17→20:18)
[2018-06-22] MEDS ORDERED: LEVOTHYROXINE 50 MCG TAB PO SCH (09:00)
[2018-06-22] MEDS ORDERED: AZITHROMYCIN 500 MG in SODIUM CHLORIDE 0.9% 250 ML IVPB SCH (09:00)
[2018-06-22 11:49] LABS: Glucose,Whole Blood 86 mg/dL (75-99)
[2018-06-22] MEDS: traMADol 50 MG TAB PO PRN ×2 (14:16→20:21)
--- NOTE | 2018-06-22 16:32 | P.PN ---
Subjective Patient is admitted for right-sided pneumonia feeling bit better. Constitutional: Denied any fatigue denied any fever. Cardio vascular: denied any chest pain, palpitations Gastrointestinal denied any nausea vomiting Pulmonary: Denied any shortness of breath cough Neurologic denied any new focal deficits All inpatient medications were reviewed and appropriate changes in these medications as dictated in the interval history and assessment and plan. Objective - Vital Signs Vital signs: Vital Signs Temp 98.6 F 06/22/18 14:13 Pulse 77 06/22/18 14:13 Resp 18 06/22/18 15:10 BP 98/68 06/22/18 14:13 Pulse Ox 99 06/22/18 14:13 Intake & Output 06/21/18 06/22/18 06/22/18 18:59 06:59 18:59 Intake Total 700 200 600 Balance 700 200 600 Weight 36 kg Intake: IV 700 Azithromycin 500 mg In 250 Sodium Chloride 0.9% 250 ml @ 250 mls/hr IVPB DAILY ROBE Rx#:[id number] Sodium Chloride 0.9% 1, 400 000 ml @ 50 mls/hr IV . Q20H RO[facility] Rx#:[id number] cefTRIAXone 1 gm In 50 Sodium Chloride 0.9% 50 ml @ 100 mls/hr IVPB Q24HR ROBE Rx#:[id number] Oral 200 600 Other: Voiding Method Toilet # Voids 2 2 # Bowel Movements 0 - Exam PHYSICAL EXAMINATION: GENERAL: The patient is alert and oriented x3, not in any acute distress. Thin built small face HEENT: Pupils are round and equally reacting to light. EOMI. No scleral icterus. No conjunctival pallor. Normocephalic, atraumatic. No pharyngeal erythema. No thyromegaly. CARDIOVASCULAR: S1 and S2 present. No murmurs, rubs, or gallops. PULMONARY: Chest is clear to auscultation, no wheezing or crackles. Patient does have bronchophony and egophony on the right side posteriorly ABDOMEN: Soft, nontender, nondistended, normoactive bowel sounds. No palpable organomegaly. MUSCULOSKELETAL: No joint swelling or deformity. EXTREMITIES: No cyanosis, clubbing, or pedal edema. NEUROLOGICAL: Gross neurological examination did not reveal any focal deficits. SKIN: No rashes. - Labs CBC & Chem 7: 06/20/18 20:49 06/20/18 20:49 Labs: Abnormal Lab Results - Last 24 Hours (Table) 06/21/18 Range/Units 20:51 POC Glucose (mg/dL) 135 H (75-99) mg/dL Microbiology - Last 24 Hours (Table) 06/21/18 01:43 Blood Culture - Preliminary Blood No Growth after 24 hours Assessment and Plan Plan: Community-acquired pneumonia on the right side involving the right middle lobe and lower lobe: Continue with cefdinir and azithromycin. -Hypoglycemia secondary to sepsis improving now -Rule out pulmonary embolism -Fibro-myalgia -Hypothyroidism -History of rhabdomyosarcoma in the past -Depression -Due to prophylaxis with early ambulation
[2018-06-22 17:04] LABS: Glucose,Whole Blood 84 mg/dL (75-99)
[2018-06-22] MEDS: ACETAMINOPHEN TAB 500 MG TAB PO PRN (18:29)
[2018-06-22] MEDS: traZODone HCL 50 MG TAB PO SCH (20:18)
[2018-06-22 20:37] LABS: Glucose,Whole Blood 95 mg/dL (75-99)
[2018-06-22] MEDS ORDERED: CEFDINIR 300 MG CAP PO SCH (21:00)
[2018-06-23 02:09] LABS: Glucose,Whole Blood 98 mg/dL (75-99)
[2018-06-23] MEDS: SODIUM CHLORIDE 0.9% 1,000 ML IV SCH (03:37)
[2018-06-23 05:02] VITALS: BP 105/69; PULSE 66; RESP 16; TEMP 97.8
[2018-06-23] MEDS: LEVOTHYROXINE 125 MCG TAB PO SCH (06:21)
[2018-06-23 07:09] LABS: Glucose,Whole Blood 83 mg/dL (75-99)
[2018-06-23] MEDS: FAMOTIDINE 20 MG TAB PO SCH (07:09)
[2018-06-23] MEDS: GABAPENTIN 100 MG CAP PO SCH (07:09)
[2018-06-23] MEDS ORDERED: AZITHROMYCIN 500 MG TAB PO SCH (09:00)
[2018-06-23 10:21] LABS: HCT 32.5 % (34.0-46.0); HGB 9.5 gm/dL (11.4-16.0); Hypochromasia Marked; MCH 25.2 pg (25.0-35.0); MCHC 29.3 g/dL (31.0-37.0); Mean Platelet Volume 6.8; Platelet Count 346 k/uL (150-450); Poikilocytosis Slight; RBC 3.79 m/uL (3.80-5.40); WBC 3.7 k/uL (3.8-10.6)
[2018-06-23 10:34] LABS: Anion Gap 6 mmol/L; Blood Urea Nitrogen 10 mg/dL (7-17); Calcium 8.7 mg/dL (8.4-10.2); Carbon Dioxide 27 mmol/L (22-30); Chloride 109 mmol/L (98-107); Potassium 3.7 mmol/L (3.5-5.1); Sodium 142 mmol/L (137-145)
[2018-06-23 11:11] LABS: Glucose 48 mg/dL (74-99)
[2018-06-23 11:25] LABS: Glucose,Whole Blood 93 mg/dL (75-99)
[2018-06-23] MEDS: ACETAMINOPHEN TAB 500 MG TAB PO PRN (12:02)
--- NOTE | 2018-06-23 12:49 | CONS ---
CONSULTATION PULMONARY/CRITICAL CARE CONSULTATION: DATE OF SERVICE: 06/23/2018 This is a 33-year-old female who presents to the emergency department with complaints of right-sided chest pain. The chest pain appears to be underneath her right breast. It started the day prior to admission. In addition to the pain under the right breast, she states that she has had some pain in the left chest area as well. In addition, she has history of cough, chest congestion, shortness of breath, and phlegm production. The phlegm is yellow in color. She states that she has been finding some sort of upper respiratory tract infection for about a week or so prior to admission. The pain is worse when she coughs. The pain does have a sharp component to it and may be a pleuritic in nature. She denies any fever. She does admit to some chills. She denies any nausea, vomiting or diarrhea. No abdominal complaints. No complaints. The patient had a chest x-ray which did not look too bad and a CT scan. The CT scan did show a left upper lobe infiltrate and a right lower lobe infiltrate as well. She was admitted with a diagnosis of pneumonia. She is feeling about the same or slightly better than she did yesterday. She is still having complaints of chest pain, shortness of breath, chest congestion, cough and phlegm production. CURRENT MEDICATIONS: Include gabapentin, melatonin, tramadol, albuterol inhaler, and Pepcid. ALLERGIES: Include CIPROFLOXACIN, AMOXICILLIN, CODEINE and IMITREX. MEDICAL HISTORY: Fibromyalgia, Martinez's palsy, migraine cephalgia, UTI, thyroid cancer, chronic lung disease secondary to chemotherapy, rhabdomyosarcoma affecting the head and neck at age 5, status post chemoradiation, reactive airways disease, left diaphragmatic paralysis, cardiomyopathy, CHF. SURGICAL HISTORY: Includes among other things, cholecystectomy, multiple oral procedures, bronchoscopy, thyroidectomy, myringotomy with bilateral tube placement, and left wrist surgery. She has also had a feeding tube in the past. She also suffers from some anxiety and depression. SOCIAL HISTORY: Negative for tobacco use. She denies any alcohol use. She has used marijuana in the past. PAST FAMILY HISTORY: Positive for hyperlipidemia, hypertension, anxiety, depression, and thyroid disorder. REVIEW OF SYSTEMS: CONSTITUTIONAL: Chills, no fever. NEUROLOGIC: Negative. HEENT: Negative. CARDIOVASCULAR: Negative. PULMONARY: Shortness of breath, chest congestion, cough, wheezing, phlegm production, pain in the chest underneath the right breast and in the left posterior chest, sharp and pleuritic in nature. GI: Negative. : Negative. RHEUMATOLOGIC: Negative. IMMUNOLOGIC: Negative. ENDOCRINOLOGIC: Negative. DERMATOLOGIC: Negative. Current vital signs are reviewed. Temperature is 97.8, heart rate is 66, respiratory rate is 16, blood pressure 105/69 mean 81, room air saturation 98%. Appears in no acute distress. She does have a wet congested-sounding cough. HEENT: Examination is grossly unremarkable. Mucous membranes are moist. NECK: Supple. Full range of motion. CARDIOVASCULAR: Examination reveals regular rhythm and rate. Heart rate about mid 60. S1, S2 normal. No murmur. LUNGS: Reveal coarse inspiratory and expiratory rhonchi. Breath sounds are diminished. Her cough is very wet and congested-sounding. No distinct wheezes are noted. There is a few scattered crackles. ABDOMEN: Soft. Bowel sounds are heard. EXTREMITIES: Intact. No cyanosis, clubbing, or edema. SKIN: Without rash. NEUROLOGIC: Examination is brief but nonfocal. LAB DATA: Reviewed. White count 3.7, down from 11.5, hemoglobin 9.5, hematocrit 32.5, and platelet count 346,000. Sodium 142, potassium 3.7, chloride 109, CO2 of 27, anion gap is 6, BUN and creatinine were 10 and 0.72, glucose that was noted. A comprehensive metabolic profile normal. Troponin is negative. Chest x-ray is reviewed. It shows air in the air fluid level in this gastric bubble. The airways look narrowed. The trachea appears to be somewhat torturous. The right diaphragm and left diaphragm approximate 1 another. There is no focal infiltrate that I can see on the chest x-ray. CT scan shows some left upper lobe infiltrative changes consistent with possible pneumonia as well as some right lower lobe changes as well, which could be related to atelectasis and/or infiltrate. Microbiologic studies including blood cultures are negative. Orders are reviewed. She is currently on albuterol updrafts, Zithromax, Rocephin and a basic IV. ASSESSMENT: 1. Probable pneumonia involving left upper lobe, right lower lobe, community-acquired. 2. History of reactive airways disease. 3. History of peripartum cardiomyopathy. 4. History of Martinez's palsy. 5. History of migraine cephalgia. 6. History of urinary tract infection. 7. History of thyroid cancer. 8. History of head and neck rhabdomyosarcoma, status post chemoradiation. 9. History of thyroid cancer, status post surgery. 10.Previous history of methicillin-resistant Staphylococcus aureus infection. PLAN: The patient's medications are appropriate. The patient is on updrafts and antibiotics. She looks relatively stable. Will continue to follow. Will ask for blood, sputum and urine sampling. Additional recommendations and suggestions are forthcoming. Prognosis is guarded. MMODL / IJN: [id number] /
--- NOTE | 2018-06-23 17:39 | P.DS ---
Providers Date of admission: 06/21/18 00:50 Attending physician: Jericho Patton Consults: 06/22/18 14:25 Consult Physician Routine Consulting Provider: Sun Hammonds Consult Reason/Comments: pneumonia Do you want consulting provider notified?: Yes Primary care physician: [facility] Course: Patient is admitted for right-sided pneumonia feeling bit better. Patient will be discharged on Ceftin and is from azithromycin. Patient did have hypoglycemia had multiple similar episodes here and this is chronic for her patient was advised to use frequent meals. As this is not acute I'm not doing further workup for insulinoma and this can be done if warranted as an outpatient. PHYSICAL EXAMINATION: GENERAL: The patient is alert and oriented x3, not in any acute distress. Thin built small face HEENT: Pupils are round and equally reacting to light. EOMI. No scleral icterus. No conjunctival pallor. Normocephalic, atraumatic. No pharyngeal erythema. No thyromegaly. CARDIOVASCULAR: S1 and S2 present. No murmurs, rubs, or gallops. PULMONARY: Chest is clear to auscultation, no wheezing or crackles. Patient does have bronchophony and egophony on the right side posteriorly ABDOMEN: Soft, nontender, nondistended, normoactive bowel sounds. No palpable organomegaly. MUSCULOSKELETAL: No joint swelling or deformity. EXTREMITIES: No cyanosis, clubbing, or pedal edema. NEUROLOGICAL: Gross neurological examination did not reveal any focal deficits. SKIN: No rashes. Assessment and Plan Plan: Community-acquired pneumonia on the right side involving the right middle lobe and lower lobe: Continue with Ceftin and azithromycin. -Hypoglycemia chronic -Rule out pulmonary embolism -Fibro-myalgia -Hypothyroidism -History of rhabdomyosarcoma in the past -Depression Patient Condition at Discharge: Stable Plan - Discharge Summary Discharge Rx Participant: No New Discharge Prescriptions: New Cefuroxime Axetil [Ceftin] 500 mg PO BID 5 Days #10 tab Azithromycin [Zithromax] 500 mg PO DAILY #3 tab Continue traMADol HCL [Ultram] 50 - 100 mg PO Q46H PRN PRN Reason: Pain Gabapentin [Neurontin] 400 mg PO BID Albuterol Inhaler [Ventolin Hfa Inhaler] 2 puff INHALATION RT-Q6H PRN PRN Reason: Shortness Of Breath Ranitidine HCl [Zantac] 150 mg PO BID Levothyroxine Sodium [Synthroid] 50 mcg PO DAILY traZODone HCL 50 mg PO HS Levothyroxine Sodium [Synthroid] 200 mcg PO DAILY Erenumab-Aooe [Aimovig Autoinjector] 140 mg SQ QMONTH Discharge Medication List Gabapentin [Neurontin] 400 mg PO BID 02/15/18 [History] traMADol HCL [Ultram] 50 - 100 mg PO Q46H PRN 02/15/18 [History] Albuterol Inhaler [Ventolin Hfa Inhaler] 2 puff INHALATION RT-Q6H PRN 04/03/18 [History] Erenumab-Aooe [Aimovig Autoinjector] 140 mg SQ QMONTH 06/21/18 [History] Levothyroxine Sodium [Synthroid] 50 mcg PO DAILY 06/21/18 [History] Levothyroxine Sodium [Synthroid] 200 mcg PO DAILY 06/21/18 [History] Ranitidine HCl [Zantac] 150 mg PO BID 06/21/18 [History] traZODone HCL 50 mg PO HS 06/21/18 [History] Azithromycin [Zithromax] 500 mg PO DAILY #3 tab 06/23/18 [Rx] Cefuroxime Axetil [Ceftin] 500 mg PO BID 5 Days #10 tab 06/23/18 [Rx] Follow up Appointment(s)/Referral(s): Dayo Vidal DO [Primary Care Provider] - 06/25/18 1:15 pm Patient Instructions/Handouts: Non-diabetic Hypoglycemia (DC), Pneumonia (DC) Discharge Disposition: HOME SELF-CARE
--- NOTE | 2018-06-25 13:31 | CDI ---
Documentation Clarification Form Date: 06/25/18 From: Jasmine Springer Phone: If you have a question regarding this query, please contact Erica Baldwin at [phone]- 8am -5pm. Admit Date: 06/21/2018 12:50:00 AM Patient Name: Mariah Nelson Visit Number: [id number] Discharge Date: 06/23/2018 12:51:00 PM ATTENTION: The Clinical Documentation Specialists (CDI) and [facility] Coding Staff appreciate your assistance in clarifying documentation. Please respond to the clarification below the line at the bottom and electronically sign. The CDI & [facility] Coding staff will review the response and follow-up if needed. Please note: Queries are made part of the Legal Health Record. If you have any questions, please contact the author of this message via ITS. Dr. Cerda Per H&P -The patient presented with pleuritic right-sided chest pain, pneumonia and hypoglycemia that appears to be secondary to sepsis. History/Risk Factors: Pneumonia Clinical Indicators: Hypoglycemia WBC: 11.5 Lactic acid: Not tested Blood cultures: No growth Vitals signs on admission: T. 98.4, P. 85, R. 22, Bp 104//62 Antibiotics: IV Zithromax IV Bolus: 1 liter In your professional opinion, please clarify if these findings signify one of the following conditions: Sepsis ruled out Sepsis due to Other, please specify Unable to determine Appropriate documentation was already dictated MTDD
--- NOTE | 2018-06-25 13:42 | CDI ---
Documentation Clarification Form Date: [id number] From: Jasmine Springer Phone: If you have a question regarding this query, please contact Erica Baldwin at [phone] between 8am and 5pm. Admit Date: 06/21/2018 12:50:00 AM Patient Name: Mariah Nelson Visit Number: [id number] Discharge Date: 06/23/2018 12:51:00 PM ATTENTION: The Clinical Documentation Specialists (CDI) and [facility] Coding Staff appreciate your assistance in clarifying documentation. Please respond to the clarification below the line at the bottom and electronically sign. The CDI & [facility] Coding staff will review the response and follow-up if needed. Please note: Queries are made part of the Legal Health Record. If you have any questions, please contact the author of this message via ITS. Dr. Cerda The patient presented with right sided chest pain. Discharge Summary dx is listed as: "rule out pulmonary embolism" History/Risk Factors: Patient admitted with pneumonia . Clinical Indicators: Chest pain Radiology findings: Chest CT: No pulmonary embolism. Vital Signs: T. 98.4, P. 85, R. 22, BP 104/62 Treatment: No treatment In your professional opinion, can you please clarify? Pulmonary embolism ruled out Pulmonary embolism , possible or probable Other, please specify Unable to determine Pulmonary embolism ruled out MTDD
== END 2018-06-23 12:51 | disposition home or self-care (01) | DRG 871 ==
LOC: EC 19:58 → 4SSUR 06-21 00:50 → 4MS4W 06-21 06:52
PROVIDERS: ADMIT Hospitalist; ATTEND Hospitalist
DX: A41.9 Sepsis, unspecified organism (principal); J18.9 Pneumonia, unspecified organism; J98.6 Disorders of diaphragm; E16.2 Hypoglycemia, unspecified; E89.0 Postprocedural hypothyroidism; F32.9 Major depressive disorder, single episode, unspecified; F41.9 Anxiety disorder, unspecified; M79.7 Fibromyalgia; G43.909 Migraine, unspecified, not intractable, without status migrainosus; J44.9 Chronic obstructive pulmonary disease, unspecified; R07.89 Other chest pain; Z79.890 Hormone replacement therapy; Z79.899 Other long term (current) drug therapy; Z88.1 Allergy status to other antibiotic agents; Z88.5 Allergy status to narcotic agent; Z88.0 Allergy status to penicillin; Z88.8 Allergy status to other drugs, medicaments and biological substances; Z85.831 Personal history of malignant neoplasm of soft tissue; Z85.850 Personal history of malignant neoplasm of thyroid; Z92.3 Personal history of irradiation; Z92.21 Personal history of antineoplastic chemotherapy; Z87.440 Personal history of urinary (tract) infections; Z86.14 Personal history of Methicillin resistant Staphylococcus aureus infection; Z90.49 Acquired absence of other specified parts of digestive tract; Z81.8 Family history of other mental and behavioral disorders; Z82.49 Family history of ischemic heart disease and other diseases of the circulatory system; Z83.3 Family history of diabetes mellitus; Z83.49 Family history of other endocrine, nutritional and metabolic diseases
CPT/HCPCS: 36415; 71046; 71275; 80048; 80053; 84484; 85025; 85027; 87040; 93005; 96361; 96365; 96366; 96368; 99285

== ENCOUNTER 2018-06-27 15:22 | Inpatient (IN) | payer OTHER ==
[2018-06-27] MEDS ORDERED: SODIUM CHLORIDE 0.9% 500 ML 500 ML IV STA (15:57)
--- NOTE | 2018-06-27 16:43 | ED ---
General Adult HPI - General Chief complaint: Recheck/Abnormal Lab/Rx Stated complaint: Fever Time Seen by Provider: 06/27/18 15:30 Source: patient, family, RN notes reviewed, old records reviewed Mode of arrival: ambulatory Limitations: no limitations - History of Present Illness Initial comments: Chief complaint and history of present illness this is a 33-year-old female with multiple complex medical issues. Patient was in hospital approximately 2 weeks ago. Spent several days here and then discharged on medications. Patient reports that she's not been able to fill or take her medications for the past 4 days because previous radiation to the neck and throat area prevents her from swallowing. And the insurance will not pay for liquid medications. She also states he had chills today and continues with a mild productive cough. Decreased oral intake. States she felt she had a fever at home and took her temperature with a thermometer. Her temperature here was 97.5. She did state she took some pediatric Advil. - Related Data Home Medications Medication Instructions Recorded Confirmed Gabapentin [Neurontin] 400 mg PO BID 02/15/18 06/21/18 traMADol HCL [Ultram] 50 - 100 mg PO Q46H PRN 02/15/18 06/21/18 Albuterol Inhaler [Ventolin Hfa 2 puff INHALATION RT-Q6H PRN 04/03/18 06/21/18 Inhaler] Erenumab-Aooe [Aimovig 140 mg SQ QMONTH 06/21/18 06/21/18 Autoinjector] Levothyroxine Sodium [Synthroid] 50 mcg PO DAILY 06/21/18 06/21/18 Levothyroxine Sodium [Synthroid] 200 mcg PO DAILY 06/21/18 06/21/18 Ranitidine HCl [Zantac] 150 mg PO BID 06/21/18 06/21/18 traZODone HCL 50 mg PO HS 06/21/18 06/21/18 Previous Rx's Medication Instructions Recorded Azithromycin [Zithromax] 500 mg PO DAILY #3 tab 06/23/18 Cefuroxime Axetil [Ceftin] 500 mg PO BID 5 Days #10 tab 06/23/18 Allergies Allergy/AdvReac Type Severity Reaction Status Date / Time ciprofloxacin Allergy Dyspnea Verified 06/27/18 15:27 amoxicillin trihydrate AdvReac Severe Nausea & Verified 06/27/18 15:27 [From Augmentin] Vomiting & Diarrhea codeine AdvReac Severe Dyspnea Verified 06/27/18 15:27 potassium clavulanate AdvReac Severe Nausea & Verified 06/27/18 15:27 [From Augmentin] Vomiting & Diarrhea sumatriptan [From Imitrex] AdvReac Dyspnea Verified 06/27/18 15:27 Review of Systems ROS Statement: Those systems with pertinent positive or pertinent negative responses have been documented in the HPI. Review of systems. 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 In her early 20s she had her thyroid cancer with surgery. 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 Past history also includes MRSA. Surgeries cholecystectomy psychological history anxiety and depression. Never smoker. No alcohol use. Family history thyroid disorder. ROS Other: All systems not noted in ROS Statement are negative. Past Medical History Past Medical History: Cancer, Heart Failure, Fibromyalgia, Thyroid Disorder Additional Past Medical History / Comment(s): Rhabdomyosarcoma affecting head/neck at age 5 yrs with chemo/radiation-affected lungs and has COPD like symptoms/restrictive airway, early 20's had thyroid cancer with surgery, cardiomyopathy/CHF with , Maritnez's palsey, migraines, UTI. Left lung diaphragm paralyzed. On vent and in coma with pneumonia in [id number] History of Any Multi-Drug Resistant Organisms: MRSA Date of last positivie culture/infection: 2008 MDRO Source:: left calf Past Surgical History: Cholecystectomy, Orthopedic Surgery Additional Past Surgical History / Comment(s): Multiple oral surgeries, br onchoscopy, thyroidectomy, myringotomy/tubes bilateral ears, LEFT WRIST SURGERY, g-tube since removed Past Anesthesia/Blood Transfusion Reactions: No Reported Reaction Additional Past Anesthesia/Blood Transfusion Reaction / Comment(s): Use child size ET tube. Past Psychological History: Anxiety, Depression Smoking Status: Never smoker Past Alcohol Use History: None Reported Past Drug Use History: None Reported - Past Family History Father Family Medical History: Hyperlipidemia, Hypertension, Thyroid Disorder Additional Family Medical History / Comment(s): anxiety depression Mother Family Medical History: Diabetes Mellitus, Thyroid Disorder Brother(s) Family Medical History: No Reported History Sister(s) Family Medical History: No Reported History Daughter(s) Family Medical History: No Reported History General Exam - General Exam Comments Initial Comments: General: The patient is awake and alert, here because she had chills at home reports she had a fever at home. Has not been taking her prescribed medications since discharge 4 days ago for pneumonia because she can't swallow pills due to esophageal stricture. She states insurance will not allow her to have the liquid forms. She states she has difficulty swallowing crushed pills in putting or Jammer jelly. Because of the grittiness. Vital signs show temperature 97.8 pulse 87 respiratory rate 18 pulse ox 97% room air blood pressure 118/75 Eye: Pupils are equal, round and reactive to light, extra-ocular movements are intact; there is normal conjunctiva bilaterally. No signs of icterus. Ears, nose, mouth and throat: There are moist mucous membranes nearly edentulous.. Neck: The neck is supple, there is no tenderness, states food gets stuck in what sounds like a Zenker's diverticula secondary to radiation as a child making it difficult to swallow Cardiovascular: There is a regular rate and rhythm. No murmur, rub or gallop is appreciated. Respiratory: Rare rales right base, decreased breath sounds left lung field. Past history of thoracentesis ,left lung Gastrointestinal: Soft, non-distended, non-tender abdomen without masses or organomegaly noted. There is no rebound or guarding present. No CVA tenderness. Bowel sounds are unremarkable. Back: There is no tenderness to palpation in the midline. There is no obvious deformity. No rashes noted. Musculoskeletal: Normal ROM, no tenderness, There is no pedal edema. There is no calf tenderness or swelling. Sensation intact. Pulses equal bilaterally 2+. Neurological: Denies any weakness denies numbness no neuro deficits appreciated Skin: Skin is warm and dry and no rashes or lesions are noted. Psychiatric: Cooperative, Limitations: no limitations Course Vital Signs 06/27/18 06/27/18 15:23 18:00 Temperature 97.8 F Pulse Rate 87 96 Respiratory 18 18 Rate Blood Pressure 118/75 123/80 O2 Sat by Pulse 97 98 Oximetry Medical Decision Making - Medical Decision Making Shabbir decision-making; is a 33-year-old female here with her mother. The patient is a chronic medical problems since age 5 when she underwent radiation and chemotherapy for cancer of the neck and face. The patient's labs show white count of 5.7 hemoglobin 11 hematocrit 37, d-dimer 0.63 with a potassium 4.6, BUN 15 creatinine 0.6 with a GFR greater than 90. Glucose 72. Urine clean no signs of infection. Chest x-ray was done and reviewed by radiologist and his findings include chronic changes with no acute cardiopulmonary process. As read by Patient will be started on Rocephin and azithromycin. She had a diagnosis of pneumonia by CAT scan and was unable take antibiotics for the past 4 days. She presents with a complaint of some chills and fever at home. Vital signs remained stable here. Case discussed with Dr. Cerda, patient admitted his service. - Lab Data Result diagrams: 06/27/18 16:35 06/27/18 16:35 Lab Results 06/27/18 06/27/18 06/27/18 Range/Units 16:35 16:35 16:35 WBC 5.7 (3.8-10.6) k/uL RBC 4.58 (3.80-5.40) m/uL Hgb 11.0 L (11.4-16.0) gm/dL Hct 37.7 (34.0-46.0) % MCV 82.4 (80.0-100.0) fL MCH 24.0 L (25.0-35.0) pg MCHC 29.2 L (31.0-37.0) g/dL RDW 15.9 H (11.5-15.5) % Plt Count 551 H (150-450) k/uL Neutrophils % 84 % Lymphocytes % 9 % Monocytes % 2 % Eosinophils % 2 % Basophils % 1 % Neutrophils # 4.8 (1.3-7.7) k/uL Lymphocytes # 0.5 L (1.0-4.8) k/uL Monocytes # 0.1 (0-1.0) k/uL Eosinophils # 0.1 (0-0.7) k/uL Basophils # 0.0 (0-0.2) k/uL Hypochromasia Marked D-Dimer (<0.60) mg/L FEU Sodium 143 (137-145) mmol/L Potassium 4.6 (3.5-5.1) mmol/L Chloride 106 (98-107) mmol/L Carbon Dioxide 27 (22-30) mmol/L Anion Gap 10 mmol/L BUN 15 (7-17) mg/dL Creatinine 0.64 (0.52-1.04) mg/dL Est GFR (CKD-EPI)AfAm >90 (>60 ml/min/1.73 sqM) Est GFR (CKD-EPI)NonAf >90 (>60 ml/min/1.73 sqM) Glucose 72 L (74-99) mg/dL Calcium 9.9 (8.4-10.2) mg/dL Total Bilirubin 0.2 (0.2-1.3) mg/dL AST 50 H (14-36) U/L ALT 33 (9-52) U/L Alkaline Phosphatase 95 (38-126) U/L NT-Pro-B Natriuret Pep pg/mL Total Protein 7.6 (6.3-8.2) g/dL Albumin 4.6 (3.5-5.0) g/dL Urine Color Light Yellow Urine Appearance Clear (Clear) Urine pH 8.0 (5.0-8.0) Ur Specific [place] 1.020 (1.001-1.035) Urine Protein Negative (Negative) Urine Glucose (UA) Negative (Negative) Urine Ketones Negative (Negative) Urine Blood Negative (Negative) Urine Nitrite Negative (Negative) Urine Bilirubin Negative (Negative) Urine Urobilinogen <2.0 (<2.0) mg/dL Ur Leukocyte Esterase Small H (Negative) Urine RBC 1 (0-5) /hpf Urine WBC 2 (0-5) /hpf Ur Squamous Epith Cells 3 (0-4) /hpf Urine Mucus Rare H (None) /hpf 06/27/18 06/27/18 Range/Units 16:35 16:35 WBC (3.8-10.6) k/uL RBC (3.80-5.40) m/uL Hgb (11.4-16.0) gm/dL Hct (34.0-46.0) % MCV (80.0-100.0) fL MCH (25.0-35.0) pg MCHC (31.0-37.0) g/dL RDW (11.5-15.5) % Plt Count (150-450) k/uL Neutrophils % % Lymphocytes % % Monocytes % % Eosinophils % % Basophils % % Neutrophils # (1.3-7.7) k/uL Lymphocytes # (1.0-4.8) k/uL Monocytes # (0-1.0) k/uL Eosinophils # (0-0.7) k/uL Basophils # (0-0.2) k/uL Hypochromasia D-Dimer 0.63 H (<0.60) mg/L FEU Sodium (137-145) mmol/L Potassium (3.5-5.1) mmol/L Chloride (98-107) mmol/L Carbon Dioxide (22-30) mmol/L Anion Gap mmol/L BUN (7-17) mg/dL Creatinine (0.52-1.04) mg/dL Est GFR (CKD-EPI)AfAm (>60 ml/min/1.73 sqM) Est GFR (CKD-EPI)NonAf (>60 ml/min/1.73 sqM) Glucose (74-99) mg/dL Calcium (8.4-10.2) mg/dL Total Bilirubin (0.2-1.3) mg/dL AST (14-36) U/L ALT (9-52) U/L Alkaline Phosphatase (38-126) U/L NT-Pro-B Natriuret Pep 59 pg/mL Total Protein (6.3-8.2) g/dL Albumin (3.5-5.0) g/dL Urine Color Urine Appearance (Clear) Urine pH (5.0-8.0) Ur Specific [place] (1.001-1.035) Urine Protein (Negative) Urine Glucose (UA) (Negative) Urine Ketones (Negative) Urine Blood (Negative) Urine Nitrite (Negative) Urine Bilirubin (Negative) Urine Urobilinogen (<2.0) mg/dL Ur Leukocyte Esterase (Negative) Urine RBC (0-5) /hpf Urine WBC (0-5) /hpf Ur Squamous Epith Cells (0-4) /hpf Urine Mucus (None) /hpf Disposition Clinical Impression: Pneumonia Disposition: ADMITTED IP TO THIS [facility] Condition: Fair Referrals: Dayo Vidal DO [Primary Care Provider] - 1-2 days
[2018-06-27 16:49] LABS: Basophils % (A) 1 %; Eosinophils # (A) 0.1 k/uL (0-0.7); Eosinophils % (A) 2 %; HCT 37.7 % (34.0-46.0); Hypochromasia Marked; Lymphocytes # (A) 0.5 k/uL (1.0-4.8); Lymphocytes % (A) 9 %; MCHC 29.2 g/dL (31.0-37.0); MCV 82.4 fL (80.0-100.0); Mean Platelet Volume 6.2; Monocytes # (A) 0.1 k/uL (0-1.0); Monocytes % (A) 2 %; Neutrophils # (A) 4.8 k/uL (1.3-7.7); Neutrophils % (A) 84 %; Platelet Count 551 k/uL (150-450); RBC 4.58 m/uL (3.80-5.40); RDW 15.9 % (11.5-15.5); WBC 5.7 k/uL (3.8-10.6)
[2018-06-27 16:56] LABS: Appearance,Urine Clear (Clear); Bilirubin,Urine Negative (Negative); Blood,Urine Negative (Negative); Color,Urine Light Yellow; Glucose,Urine (UA) Negative (Negative); Ketones,Urine Negative (Negative); Leukocyte Esterase,Urine Small (Negative); Mucus,Urine Rare /hpf; Nitrite,Urine Negative (Negative); Protein,Urine Negative (Negative); RBC,Urine 1 /hpf (0-5); Squamous Epithelial Cell,Urine 3 /hpf (0-4); Urobilinogen,Urine <2.0 mg/dL (<2.0)
[2018-06-27 16:57] LABS: ALT 33 U/L (9-52); AST 50 U/L (14-36); Albumin 4.6 g/dL (3.5-5.0); Alkaline Phosphatase 95 U/L (38-126); Anion Gap 10 mmol/L; Blood Urea Nitrogen 15 mg/dL (7-17); Calcium 9.9 mg/dL (8.4-10.2); Carbon Dioxide 27 mmol/L (22-30); Chloride 106 mmol/L (98-107); Glucose 72 mg/dL (74-99); Potassium 4.6 mmol/L (3.5-5.1); Sodium 143 mmol/L (137-145); Total Bilirubin 0.2 mg/dL (0.2-1.3); Total Protein 7.6 g/dL (6.3-8.2)
--- NOTE | 2018-06-27 17:15 | XR ---
EXAMINATION TYPE: XR chest 2V DATE OF EXAM: 06/27/2018 COMPARISON: 06/20/2018 HISTORY: Known left hemidiaphragm paralysis. Difficulty breathing. History of rhabdosarcoma. TECHNIQUE: Frontal and lateral views of the chest are obtained. FINDINGS: There is been thyroidectomy with numerous surgical clips in the thyroid bed. Left hemidiap hragm is slightly elevated in this patient with known left hemidiaphragm paralysis. No new focal cons olidation, pleural effusion or pneumothorax is seen within the chest. Cardia mediastinal silhouette i s within normal limits. Osseous structures appear intact. Surgical clips are seen in the upper abdome n on the lateral view only. IMPRESSION: Chronic changes with no acute cardiopulmonary process.
[2018-06-27] MEDS ORDERED: AZITHROMYCIN 500 MG in SODIUM CHLORIDE 0.9% 250 ML IVPB STA (17:46)
[2018-06-27] MEDS ORDERED: NALOXONE 0.4 MG/ML 1 ML VIAL IV PRN (18:15)
[2018-06-27] MEDS ORDERED: ALBUTEROL NEBULIZED 2.5 MG/3 ML INHALATION PRN (18:18)
[2018-06-27] MEDS: SODIUM CHLORIDE 0.9% 1,000 ML IV SCH (19:50)
[2018-06-27 20:11] VITALS: BMI 18.9
[2018-06-27] MEDS ORDERED: GABAPENTIN 400 MG CAP PO SCH (21:00)
[2018-06-27] MEDS: ACETAMINOPHEN TAB 325 MG TAB PO PRN (21:16)
[2018-06-27] MEDS: FAMOTIDINE 20 MG TAB PO SCH (21:31)
[2018-06-27] MEDS: traZODone HCL 50 MG TAB PO SCH (21:31)
[2018-06-27] MEDS ORDERED: ONDANSETRON 4 MG/2 ML VIAL IVP PRN (21:32)
[2018-06-28] MEDS ORDERED: LEVOTHYROXINE 50 MCG TAB PO SCH (06:30)
[2018-06-28] MEDS: LEVOTHYROXINE 125 MCG TAB PO SCH (06:49)
[2018-06-28] MEDS: SODIUM CHLORIDE 0.9% 1,000 ML IV SCH ×2 (06:49→08:13)
[2018-06-28] MEDS: POLYETHYLENE GLYCOL 3350 17 GM POWD.PACK PO SCH (08:11)
[2018-06-28] MEDS: FAMOTIDINE 20 MG TAB PO SCH ×2 (08:11→20:26)
[2018-06-28] MEDS: GABAPENTIN 100 MG CAP PO SCH ×2 (08:11→20:26)
[2018-06-28] MEDS ORDERED: AZITHROMYCIN 500 MG in SODIUM CHLORIDE 0.9% 250 ML IVPB SCH (09:00)
[2018-06-28] MEDS ORDERED: traMADol 50 MG TAB PO PRN (16:12)
[2018-06-28] MEDS: ENOXAPARIN 40 MG/0.4 ML SYRINGE SQ SCH (16:39)
[2018-06-28] MEDS: DEXTROSE 5%-0.45% NACL 1,000 ML IV SCH (16:40)
[2018-06-28] MEDS: ACETAMINOPHEN TAB 325 MG TAB PO PRN (16:43)
--- NOTE | 2018-06-28 20:05 | HP ---
HISTORY AND PHYSICAL DATE OF ADMISSION: 06/27/2018 DATE OF SERVICE: 06/28/2018 PRESENTING COMPLAINT: Weak and tired. HISTORY OF PRESENTING COMPLAINT: This is a very pleasant 33-year-old patient who follows with Dr. Dayo Vidal. Chronic stable medical conditions include history of rhabdomyosarcoma affecting the head and neck at age of 5 with chemo radiation affecting the lungs and has restrictive airway disease. The patient also had thyroid cancer in early 20s with surgery. She also had congestive heart failure, cardiomyopathy with and Martinez's palsy. Left lung diaphragm is paralyzed. In 2016 she was on the ventilator with a coma and pneumonia and has peripheral neuropathy of both the feet. Because of the rhabdomyosarcoma wrapped around the esophagus and radiation, her esophagus never grew normally and is very thin and she is not able to take her medications. She was just discharged from the hospital on the June [address] Cerda and was discharged on Ceftin medications. The pain is too large for her. She cannot take it. was ordered by her family doctor, Dr. Vidal but the insurance company refused the same. Hence, patient did not take any antibiotics. The patient has been feeling weak, tired, run down, decreased oral intake. She has a slight cough. Slight green sputum, but the symptoms are better, but just feels totally tired and run down. At baseline, normally has 1 or 2 bowel movements a week. Hence patient got readmitted to the ER, started back on IV ceftriaxone. The patient did tolerate some diet. REVIEW OF SYSTEMS: CONSTITUTIONAL: Weak and tired, some chills. HEENT as above. RESPIRATORY as above. CARDIOVASCULAR: None. GASTROINTESTINAL: As above. GENITOURINARY: None. MUSCULOSKELETAL: Some aches and pains in the joints. DERMATOLOGICAL, HEMATOLOGIC, LYMPHATICS: None. PSYCHIATRY: None. NEUROLOGICAL: None. PAST MEDICAL HISTORY: Fibromyalgia, hypothyroid, peripheral neuropathy, left diaphragm paralysis, restrictive lung disease, recent pneumonia, rhabdomyosarcoma as a child, thyroid cancer as a child, Martinez's palsy, narrowed esophagus, neuroma, history of being on the ventilator and coma. PAST SURGICAL HISTORY: Cholecystectomy, multiple oral surgeries, bronchoscopy, thyroidectomy, myringotomy tubes bilateral, left wrist surgery. PSYCH HISTORY: Anxiety, depression. SOCIAL HISTORY: Patient lives at her home with her mother, sister and patient's daughter. No smoking. No alcohol. Does use marijuana occasionally. FAMILY HISTORY: Of hyperlipidemia, hypertension, thyroid disorder. HOME MEDICATIONS: 1. Ventolin HFA 2 puffs q.6 p.r.n. 2. Ultram 1-2 tablets p.o. q.4 hours. 3. Zantac 150 mg b.i.d. 4. Synthroid 250 mcg p.o. daily. 5. Trazodone 50 mg q.h.s. 6. Neurontin 400 mg b.i.d. 7. Ceftin 500 mg q.12. ALLERGIES: TO CIPRO, AMOXICILLIN, CODEINE, POTASSIUM, IMITREX. PHYSICAL EXAMINATION: VITAL SIGNS: Vital signs on presentation: Temperature 97.8, pulse 87, respiratory 18, blood pressure 118/75, pulse ox 97% on room air. GENERAL APPEARANCE: Small built, BMI 19, lying in bed, a bit tired-appearing. EYES: Pupils equal. Conjunctivae normal. HEENT: External appearance of nose and ears normal. Oral cavity normal. NECK: JVD not raised. Mass not palpable. RESPIRATORY: Effort normal. LUNGS: Slightly decreased breath sounds. CARDIOVASCULAR: 1st and 2nd sounds normal. No edema. ABDOMEN: Soft, nontender. Liver and spleen not palpable. LYMPHATICS: No lymph nodes palpable in the neck and axilla. PSYCHIATRY: Alert and oriented x3. Mood and affect normal. NEUROLOGICAL: Pupils equal. Cranial nerves grossly intact. Power and sensation decreased sensation distally. INVESTIGATIONS: White count 5.7, hemoglobin 11, platelets 551, potassium 4.6, BUN and creatinine is normal. Glucose 72 troponin times three is negative. Chest x-ray film personally reviewed by me shows no obvious infiltrate. ASSESSMENT: 1. Recent admission to the hospital for pneumonia, is radiologically improved. Patient did not get to take her oral medications at home because the pills were large and insurance company will not cover a liquid form. At the present time, patient has no white count. No fever, but had some lingering symptoms of cough and green sputum when she presented. We will complete at least 2 more days of IV antibiotic. 2. Chronic left diaphragm paralysis. 3. Chronically narrowed esophagus. 4. Restrictive lung disease from prior radiation treatment. 5. Chronic fibromyalgia. 6. Hypothyroidism. 7. Anxiety and depression, not otherwise specified. PLAN: The patient has been put back on IV ceftriaxone. Other home medications are resumed. Given the hypoglycemia, we will give D5 0.45. Encourage the patient to be out of bed. Patient will need to be in the hospital for 2 days depending on the clinical course. Care was discussed with the patient in detail. Questions were answered. Copy to Dr. Vidal. MARKO / ROSANNE: [id number] /
[2018-06-28] MEDS: traZODone HCL 50 MG TAB PO SCH (20:26)
[2018-06-28 22:05] VITALS: RESP 16
[2018-06-29 04:46] VITALS: BP 90/62; PULSE 60; TEMP 97.5
[2018-06-29] MEDS: DEXTROSE 5%-0.45% NACL 1,000 ML IV SCH (05:42)
[2018-06-29] MEDS: LEVOTHYROXINE 125 MCG TAB PO SCH (06:11)
[2018-06-29] MEDS: POLYETHYLENE GLYCOL 3350 17 GM POWD.PACK PO SCH (08:15)
[2018-06-29] MEDS: FAMOTIDINE 20 MG TAB PO SCH (08:15)
[2018-06-29] MEDS: GABAPENTIN 100 MG CAP PO SCH (08:15)
[2018-06-29] MEDS: ENOXAPARIN 40 MG/0.4 ML SYRINGE SQ SCH (08:16)
--- NOTE | 2018-06-30 05:50 | DS ---
DISCHARGE SUMMARY DATE OF ADMISSION: 06/27/2018 DATE OF DISCHARGE: 06/29/2018 FINAL DIAGNOSES: 1. Pneumonia, present on admission. 2. Chronic left diaphragm paralysis. 3. Chronic narrowed esophagus. 4. Restrictive lung disease from prior radiation treatment. 5. Chronic fibromyalgia. 6. Hypothyroidism. 7. Anxiety and depression, not otherwise specified. HOSPITAL COURSE: This patient was treated for pneumonia, was discharged home about 5 or 6 days ago, was not able to take any pills because the pills are large presented still with cough, some sputum production. Tired, run down. Was given another about 2 days of IV antibiotics. The patient is doing well, afebrile. No chest x-ray findings. No white count. Eating much better, up and about. The patient also was hydrated. On examination, temperature 97.5, pulse 60, respirations 16, blood pressure 90/62, pulse ox 98% on room air. LUNGS: Fair entry. CARDIOVASCULAR: First and second sounds normal. INVESTIGATIONS: White count 5.7, hemoglobin is 11. Care was discussed in detail with the patient. Questions were answered. DISCHARGE MEDICATIONS: 1. Ventolin HFA 2 puffs q.6 p.r.n. 2. Synthroid 250 mcg p.o. daily. 3. Zantac 150 mg p.o. b.i.d. 4. Trazodone 50 mg q.h.s. 5. Neurontin 400 mg p.o. b.i.d. 6. Ultram one or two tablets q.4 p.r.n. Follow up with Dr. Vidal on 07/07/2018. MMODL / IJN: [id number] /
== END 2018-06-29 13:00 | disposition home or self-care (01) | DRG 194 ==
LOC: EC 15:22 → 6PED 18:15 → 3NMEDONC 06-28 14:43
PROVIDERS: ADMIT Hospitalist; ATTEND Hospitalist
DX: J18.9 Pneumonia, unspecified organism (principal); I42.9 Cardiomyopathy, unspecified; J98.6 Disorders of diaphragm; M79.7 Fibromyalgia; Z79.890 Hormone replacement therapy; Z79.899 Other long term (current) drug therapy; J98.4 Other disorders of lung; T66.XXXS Radiation sickness, unspecified, sequela; Z85.850 Personal history of malignant neoplasm of thyroid; E89.0 Postprocedural hypothyroidism; E16.2 Hypoglycemia, unspecified; F32.9 Major depressive disorder, single episode, unspecified; F41.9 Anxiety disorder, unspecified; I50.9 Heart failure, unspecified; Z82.49 Family history of ischemic heart disease and other diseases of the circulatory system; Z83.3 Family history of diabetes mellitus; Z87.01 Personal history of pneumonia (recurrent); Z92.21 Personal history of antineoplastic chemotherapy; K22.2 Esophageal obstruction; Z88.1 Allergy status to other antibiotic agents; Z88.5 Allergy status to narcotic agent; Z88.0 Allergy status to penicillin; Z90.49 Acquired absence of other specified parts of digestive tract; Z79.2 Long term (current) use of antibiotics; Z88.8 Allergy status to other drugs, medicaments and biological substances
CPT/HCPCS: 36415; 71046; 80053; 81001; 83880; 84484; 85025; 85379; 87040; 94760; 96361; 96365; 96368; 99285

== ENCOUNTER 2018-09-28 21:36 | Emergency (ER) | payer OTHER ==
[2018-09-28 21:45] VITALS: RESP 17
[2018-09-28] MEDS ORDERED: ALBUTEROL NEBULIZED 2.5 MG/3 ML INHALATION STA (22:41)
[2018-09-28] MEDS: MAG HYDROX/AL HYDROX/SIMETH 30 ML, HYOSCYAMINE ELIXIR 10 ML, CIMETIDINE HCL 300 MG, LID... PO STA ×8 (22:55→23:15)
--- NOTE | 2018-09-28 22:58 | ED ---
Chest Pain HPI - General Chief Complaint: Chest Pain Stated Complaint: Chest Pain Time Seen by Provider: 09/28/18 21:58 Source: patient Mode of arrival: wheelchair Limitations: no limitations - History of Present Illness Initial Comments: This patient is a 33-year-old woman who is here to be evaluated for substernal chest heaviness, that she states is identical to the last time she had pneumonia. States it is been going on for bit over 24 hours. The sensation has been constant, is moderate severity, and she has not noted worsening or relieving factors. MD Complaint: chest pain Onset/Timin -: hour(s) Onset: during rest Pain Location: substernal Pain Radiation: none Severity: moderate Quality: heaviness Consistency: constant Improves With: nothing Worsens With: nothing Treatments Prior to Arrival: none - Related Data On Oral Contraceptives: No Home Medications Medication Instructions Recorded Confirmed Albuterol Inhaler [Ventolin Hfa 2 puff INHALATION RT-Q6H PRN 04/03/18 06/27/18 Inhaler] Levothyroxine Sodium [Synthroid] 50 mcg PO DAILY 06/21/18 06/27/18 Levothyroxine Sodium [Synthroid] 200 mcg PO DAILY 06/21/18 06/27/18 Ranitidine HCl [Zantac] 150 mg PO BID 06/21/18 06/27/18 traZODone HCL 50 mg PO HS 06/21/18 06/27/18 Gabapentin [Neurontin] 400 mg PO BID 06/27/18 06/27/18 traMADol HCL [Ultram] 1 - 2 tab PO Q4H 06/27/18 06/27/18 Previous Rx's Medication Instructions Recorded Albuterol Inhaler [Ventolin Hfa 1 - 2 puff INHALATION Q6HR PRN #1 09/29/18 Inhaler] inhaler predniSONE 20 mg PO BID #8 tab 09/29/18 Allergies Allergy/AdvReac Type Severity Reaction Status Date / Time ciprofloxacin Allergy Dyspnea Verified 09/28/18 21:45 amoxicillin trihydrate AdvReac Severe Nausea & Verified 09/28/18 21:45 [From Augmentin] Vomiting & Diarrhea codeine AdvReac Severe Dyspnea Verified 09/28/18 21:45 potassium clavulanate AdvReac Severe Nausea & Verified 09/28/18 21:45 [From Augmentin] Vomiting & Diarrhea sumatriptan [From Imitrex] AdvReac Dyspnea Verified 09/28/18 21:45 Review of Systems ROS Statement: Those systems with pertinent positive or pertinent negative responses have been documented in the HPI. ROS Other: All systems not noted in ROS Statement are negative. Constitutional: Denies: fever, chills Respiratory: Denies: cough, dyspnea, wheezes Cardiovascular: Reports: chest pain. Denies: palpitations, orthopnea, edema, syncope Gastrointestinal: Denies: abdominal pain, nausea, vomiting Genitourinary: Denies: dysuria, hematuria Musculoskeletal: Denies: back pain Skin: Denies: rash Neurological: Denies: headache EKG Findings - EKG Results: EKG: interpreted by ERMD, sinus rhythm (Rate 72 bpm), normal axis, normal QRS - Blocks, [place], Hypertrophy, ST Abn: Repolarization changes or abnormalities: ST or T wave suggestive of ischemia Past Medical History Past Medical History: Cancer, Heart Failure, Fibromyalgia, Thyroid Disorder Additional Past Medical History / Comment(s): 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 Left lung diaphragm paralyzed. On vent and in coma with pneumonia in [id number]. neuropathy bilateral feet. neuroma History of Any Multi-Drug Resistant Organisms: MRSA Date of last positivie culture/infection: 2008 MDRO Source:: left calf Past Surgical History: Cholecystectomy, Orthopedic Surgery Additional Past Surgical History / Comment(s): Multiple oral surgeries, bronchoscopy, thyroidectomy, myringotomy/tubes bilateral ears, LEFT WRIST SURGERY, g-tube removed april 21, 2017, Past Anesthesia/Blood Transfusion Reactions: No Reported Reaction Additional Past Anesthesia/Blood Transfusion Reaction / Comment(s): Use child size ET tube. Past Psychological History: Anxiety, Depression Smoking Status: Never smoker Past Alcohol Use History: None Reported Past Drug Use History: Marijuana - Past Family History Father Family Medical History: Hyperlipidemia, Hypertension, Thyroid Disorder Additional Family Medical History / Comment(s): anxiety depression Mother Family Medical History: Diabetes Mellitus, Thyroid Disorder Brother(s) Family Medical History: No Reported History Sister(s) Family Medical History: No Reported History Additional Family Medical History / Comment(s): PCOS Daughter(s) Family Medical History: No Reported History General Exam Limitations: no limitations General appearance: alert, in no apparent distress Head exam: Present: atraumatic, other Eye exam: Present: normal appearance. Absent: scleral icterus, conjunctival injection ENT exam: Present: normal oropharynx Respiratory exam: Present: normal lung sounds bilaterally, chest wall tenderness. Absent: respiratory distress, wheezes, rales, rhonchi, stridor Cardiovascular Exam: Present: regular rate, normal rhythm, normal heart sounds. Absent: systolic murmur, diastolic murmur, rubs, gallop GI/Abdominal exam: Present: soft. Absent: distended, tenderness, guarding, rebound, rigid, mass Extremities exam: Present: normal inspection, normal capillary refill. Absent: pedal edema, calf tenderness Back exam: Present: normal inspection. Absent: CVA tenderness (R), CVA tenderness (L) Neurological exam: Present: alert Skin exam: Present: warm, dry, intact, normal color. Absent: rash Course Vital Signs 09/28/18 09/28/18 09/28/18 21:41 22:53 23:05 Temperature 97.4 F L Pulse Rate 80 80 80 Respiratory 17 Rate Blood Pressure 130/93 O2 Sat by Pulse 100 Oximetry 09/29/18 02:50 Temperature 97.9 F Pulse Rate 70 Respiratory 17 Rate Blood Pressure 128/93 O2 Sat by Pulse 97 Oximetry Chest Pain MDM - MDM Patient's 33-year-old woman with some atypical chest pain which has been relieved following albuterol. We'll provide prescription for same and have patient have close follow-up. Discussed return parameters. Disposition Clinical Impression: COPD (chronic obstructive pulmonary disease), Atypical chest pain Disposition: HOME SELF-CARE Condition: Fair Instructions (If sedation given, give patient instructions): Chest Pain (ED), COPD (Chronic Obstructive Pulmonary Disease) (ED) Prescriptions: predniSONE 20 mg PO BID #8 tab Albuterol Inhaler [Ventolin Hfa Inhaler] 1 - 2 puff INHALATION Q6HR PRN #1 inhaler PRN Reason: Wheezing Is patient prescribed a controlled substance at d/c from ED?: No Referrals: Dayo Vidal DO [Primary Care Provider] - 1-2 days
[2018-09-28 23:10] LABS: Anisocytosis Slight; Basophils % (A) 0 %; Eosinophils # (A) 0.1 k/uL (0-0.7); Eosinophils % (A) 2 %; HCT 34.8 % (34.0-46.0); HGB 10.1 gm/dL (11.4-16.0); Hypochromasia Marked; Lymphocytes # (A) 0.6 k/uL (1.0-4.8); Lymphocytes % (A) 12 %; MCH 20.8 pg (25.0-35.0); MCHC 29.1 g/dL (31.0-37.0); MCV 71.7 fL (80.0-100.0); Mean Platelet Volume 6.2; Microcytosis Marked; Monocytes # (A) 0.2 k/uL (0-1.0); Monocytes % (A) 4 %; Neutrophils # (A) 3.6 k/uL (1.3-7.7); Neutrophils % (A) 80 %; Platelet Count 404 k/uL (150-450); RBC 4.85 m/uL (3.80-5.40); RDW 19.9 % (11.5-15.5); WBC 4.5 k/uL (3.8-10.6)
[2018-09-28 23:21] LABS: ALT 186 U/L (9-52); AST 377 U/L (14-36); African American GFR (CKD) >90 (>60 ml/min/1.73 sqM); Albumin 4.7 g/dL (3.5-5.0); Alkaline Phosphatase 112 U/L (38-126); Amylase 32 U/L (30-110); Anion Gap 10 mmol/L; Blood Urea Nitrogen 22 mg/dL (7-17); Calcium 9.7 mg/dL (8.4-10.2); Carbon Dioxide 31 mmol/L (22-30); Chloride 100 mmol/L (98-107); Magnesium 2.4 mg/dL (1.6-2.3); Non-African American GFR(CKD) 81 (>60 ml/min/1.73 sqM); Potassium 3.3 mmol/L (3.5-5.1); Sodium 141 mmol/L (137-145); Total Bilirubin 0.1 mg/dL (0.2-1.3); Total Protein 7.7 g/dL (6.3-8.2)
[2018-09-28 23:23] LABS: D-Dimer 0.48 mg/L FEU (<0.60); INR 0.9 (<1.2); Partial Thromboplastin Time 30.2 sec (22.0-30.0); Prothrombin Time 9.9 sec (9.0-12.0)
[2018-09-28 23:29] LABS: Glucose 48 mg/dL (74-99)
[2018-09-29 00:24] LABS: Glucose,Whole Blood 133 mg/dL (75-99)
[2018-09-29 02:53] VITALS: BP 128/93; PULSE 70; TEMP 97.9
--- NOTE | 2018-09-29 03:34 | XR ---
INDICATION: Chest pain COMPARISON: CXR 06/27/18 FINDINGS: Frontal and lateral views of the chest are obtained. The cardiomediastinal silhouette and pulmonary vascularity are normal. There is stable mild elevation of the left hemidiaphragm. There is no airspace opacity, pleural effusion, or pneumothorax. Heart size and pulmonary vascularity are normal. Regional skeleton appears intact. There are surgical clips projecting over the lower midline neck. Cholecystectomy clips are seen in the right upper quadrant of the abdomen. IMPRESSION: No acute cardiopulmonary disease.
== END 2018-09-29 03:35 | disposition home or self-care (01) ==
LOC: EC 21:36
DX: J44.9 Chronic obstructive pulmonary disease, unspecified (principal); M79.7 Fibromyalgia; F41.9 Anxiety disorder, unspecified; F32.9 Major depressive disorder, single episode, unspecified; Z87.01 Personal history of pneumonia (recurrent); Z86.79 Personal history of other diseases of the circulatory system; Z85.831 Personal history of malignant neoplasm of soft tissue; Z85.850 Personal history of malignant neoplasm of thyroid; Z92.21 Personal history of antineoplastic chemotherapy; Z86.14 Personal history of Methicillin resistant Staphylococcus aureus infection; Z79.890 Hormone replacement therapy; Z79.891 Long term (current) use of opiate analgesic; Z79.899 Other long term (current) drug therapy; Z88.1 Allergy status to other antibiotic agents; Z88.0 Allergy status to penicillin; Z88.5 Allergy status to narcotic agent; Z88.8 Allergy status to other drugs, medicaments and biological substances; Z53.29 Procedure and treatment not carried out because of patient's decision for other reasons
CPT/HCPCS: 36415; 71046; 80053; 82150; 83690; 83735; 84484; 85025; 85379; 85610; 85730; 93005; 94640; 99285

== ENCOUNTER 2018-11-30 10:46 | Emergency (ER) | payer OTHER ==
[2018-11-30 10:56] VITALS: TEMP 97.8
[2018-11-30] MEDS ORDERED: IPRATROPIUM-ALBUTEROL 3 ML NEB INHALATION STA (11:20)
--- NOTE | 2018-11-30 11:20 | ED ---
General Adult HPI - General Chief complaint: Chest Pain Stated complaint: Chest pain Time Seen by Provider: 11/30/18 11:12 Source: patient, family, RN notes reviewed Mode of arrival: ambulatory Limitations: no limitations - History of Present Illness Initial comments: 33-year-old female presents emergency Department with chief complaint of cough congestion, shortness breath and chest pain. Patient states symptoms started last week but has progressively worsened. Patient feels that she has pneumonia again. Patient has been admitted several times for recurrent pneumonia. Patient states that she feels like it is in both of her lungs. She has pro ductive cough subjective fevers and chills. She complains of body aches, generalized not feeling well. Patient states the pain is deep in her lung at this time. She has no abdominal pain denies any nausea vomiting diarrhea constipation. - Related Data Home Medications Medication Instructions Recorded Confirmed Albuterol Inhaler [Ventolin Hfa 2 puff INHALATION RT-Q6H PRN 04/03/18 11/30/18 Inhaler] Gabapentin [Neurontin] 400 mg PO BID 06/27/18 11/30/18 traMADol HCL [Ultram] 50 - 100 mg PO Q6H 06/27/18 11/30/18 Meloxicam [Mobic] 7.5 mg PO DAILY 11/30/18 11/30/18 Previous Rx's Medication Instructions Recorded Azithromycin [Zithromax Z-pack] 0 mg PO DIRECTED #1 pack 11/30/18 Allergies Allergy/AdvReac Type Severity Reaction Status Date / Time amoxicillin trihydrate AdvReac Severe Nausea & Verified 11/30/18 11:07 [From Augmentin] Vomiting & Diarrhea codeine AdvReac Severe Dyspnea Verified 11/30/18 11:07 potassium clavulanate AdvReac Severe Nausea & Verified 11/30/18 11:07 [From Augmentin] Vomiting & Diarrhea ciprofloxacin AdvReac Dyspnea Verified 11/30/18 11:07 sumatriptan [From Imitrex] AdvReac Dyspnea Verified 11/30/18 11:07 Review of Systems ROS Statement: Those systems with pertinent positive or pertinent negative responses have been documented in the HPI. ROS Other: All systems not noted in ROS Statement are negative. Past Medical History Past Medical History: Cancer, Heart Failure, Fibromyalgia, Thyroid Disorder Additional Past Medical History / Comment(s): Rhabdomyosarcoma affecting hea d/neck at age 5 yrs with chemo/radiation-affected lungs and has COPD like symptoms/restrictive airway, early 20's had thyroid cancer with surgery, cardiomyopathy/CHF with , Martinez's palsey, migraines, UTI. Left lung diaphragm paralyzed. On vent and in coma with pneumonia in [id number]. neuropathy bilateral feet. neuroma History of Any Multi-Drug Resistant Organisms: MRSA Date of last positivie culture/infection: 2008 MDRO Source:: left calf Past Surgical History: Cholecystectomy, Orthopedic Surgery Additional Past Surgical History / Comment(s): Multiple oral surgeries, bronchoscopy, thyroidectomy, myringotomy/tubes bilateral ears, LEFT WRIST SURGERY, g-tube removed april 21, 2017, Past Anesthesia/Blood Transfusion Reactions: No Reported Reaction Additional Past Anesthesia/Blood Transfusion Reaction / Comment(s): Use child size ET tube. Past Psychological History: Anxiety, Depression Smoking Status: Never smoker Past Alcohol Use History: None Reported Past Drug Use History: Marijuana - Past Family History Father Family Medical History: Hyperlipidemia, Hypertension, Thyroid Disorder Additional Family Medical History / Comment(s): anxiety depression Mother Family Medical History: Diabetes Mellitus, Thyroid Disorder Brother(s) Family Medical History: No Reported History Sister(s) Family Medical History: No Reported History Additional Family Medical History / Comment(s): PCOS Daughter(s) Family Medical History: No Reported History General Exam Limitations: no limitations General appearance: alert, in no apparent distress Head exam: Present: atraumatic, normocephalic, normal inspection Eye exam: Present: normal appearance, PERRL, EOMI. Absent: scleral icterus, conjunctival injection, periorbital swelling ENT exam: Present: normal exam, normal oropharynx, mucous membranes moist Neck exam: Present: normal inspection, full ROM. Absent: tenderness, meningismus, lymphadenopathy Respiratory exam: Present: wheezes (Faint wheezing). Absent: normal lung sounds bilaterally, respiratory distress, rales, rhonchi, stridor Cardiovascular Exam: Present: regular rate, normal rhythm, normal heart sounds. Absent: systolic murmur, diastolic murmur, rubs, gallop, clicks Course Vital Signs 11/30/18 11/30/18 11/30/18 10:51 11:06 11:36 Temperature 97.8 F Pulse Rate 92 76 Pulse Rate [ 85 [employer] ] Respiratory 17 16 Rate Blood Pressure 101/75 O2 Sat by Pulse 97 Oximetry 11/30/18 11/30/18 11:45 12:00 Temperature Pulse Rate 87 95 Pulse Rate [ [employer] ] Respiratory 16 18 Rate Blood Pressure 114/95 O2 Sat by Pulse 98 Oximetry EKG Findings - EKG Comments: EKG Findings:: EKG from 11:11 normal sinus rhythm rate of 82 MI 140 QRS 74 QT/QTC 304/355 Medical Decision Making - Medical Decision Making Chest x-ray shows mild pleural effusion on the right with consolidation for possible early pneumonia patient was given Rocephin vitals, labs otherwise stable. Patient feels comfortable with being discharge on oral antibiotics. - Lab Data Result diagrams: 11/30/18 11:45 11/30/18 11:45 Lab Results 11/30/18 11/30/18 11/30/18 Range/Units 11:45 11:45 11:45 WBC 11.4 H (3.8-10.6) k/uL RBC 4.15 (3.80-5.40) m/uL Hgb 9.8 L (11.4-16.0) gm/dL Hct 32.1 L (34.0-46.0) % MCV 77.4 L D (80.0-100.0) fL MCH 23.6 L (25.0-35.0) pg MCHC 30.5 L (31.0-37.0) g/dL RDW 20.2 H (11.5-15.5) % Plt Count 789 H (150-450) k/uL Neutrophils % 94 % Lymphocytes % 3 % Monocytes % 2 % Eosinophils % 0 % Basophils % 0 % Neutrophils # 10.8 H (1.3-7.7) k/uL Lymphocytes # 0.3 L (1.0-4.8) k/uL Monocytes # 0.2 (0-1.0) k/uL Eosinophils # 0.0 (0-0.7) k/uL Basophils # 0.0 (0-0.2) k/uL Hypochromasia Marked Anisocytosis Moderate Microcytosis Moderate PT (9.0-12.0) sec INR (<1.2) APTT (22.0-30.0) sec Sodium 145 (137-145) mmol/L Potassium 3.5 (3.5-5.1) mmol/L Chloride 99 (98-107) mmol/L Carbon Dioxide 33 H (22-30) mmol/L Anion Gap 13 mmol/L BUN 14 (7-17) mg/dL Creatinine 0.73 (0.52-1.04) mg/dL Est GFR (CKD-EPI)AfAm >90 (>60 ml/min/1.73 sqM) Est GFR (CKD-EPI)NonAf >90 (>60 ml/min/1.73 sqM) Glucose 78 (74-99) mg/dL Plasma Lactic Acid Corey 1.0 (0.7-2.0) mmol/L Calcium 9.3 (8.4-10.2) mg/dL Magnesium 2.1 (1.6-2.3) mg/dL Total Bilirubin 0.5 (0.2-1.3) mg/dL AST 38 H (14-36) U/L ALT 34 (9-52) U/L Alkaline Phosphatase 138 H (38-126) U/L Troponin I (0.000-0.034) ng/mL NT-Pro-B Natriuret Pep pg/mL Total Protein 7.5 (6.3-8.2) g/dL Albumin 4.3 (3.5-5.0) g/dL 11/30/18 11/30/18 11/30/18 Range/Units 11:45 11:45 11:45 WBC (3.8-10.6) k/uL RBC (3.80-5.40) m/uL Hgb (11.4-16.0) gm/dL Hct (34.0-46.0) % MCV (80.0-100.0) fL MCH (25.0-35.0) pg MCHC (31.0-37.0) g/dL RDW (11.5-15.5) % Plt Count (150-450) k/uL Neutrophils % % Lymphocytes % % Monocytes % % Eosinophils % % Basophils % % Neutrophils # (1.3-7.7) k/uL Lymphocytes # (1.0-4.8) k/uL Monocytes # (0-1.0) k/uL Eosinophils # (0-0.7) k/uL Basophils # (0-0.2) k/uL Hypochromasia Anisocytosis Microcytosis PT 9.7 (9.0-12.0) sec INR 0.9 (<1.2) APTT 34.2 H (22.0-30.0) sec Sodium (137-145) mmol/L Potassium (3.5-5.1) mmol/L Chloride (98-107) mmol/L Carbon Dioxide (22-30) mmol/L Anion Gap mmol/L BUN (7-17) mg/dL Creatinine (0.52-1.04) mg/dL Est GFR (CKD-EPI)AfAm (>60 ml/min/1.73 sqM) Est GFR (CKD-EPI)NonAf (>60 ml/min/1.73 sqM) Glucose (74-99) mg/dL Plasma Lactic Acid Corey (0.7-2.0) mmol/L Calcium (8.4-10.2) mg/dL Magnesium (1.6-2.3) mg/dL Total Bilirubin (0.2-1.3) mg/dL AST (14-36) U/L ALT (9-52) U/L Alkaline Phosphatase (38-126) U/L Troponin I <0.012 (0.000-0.034) ng/mL NT-Pro-B Natriuret Pep 371 pg/mL Total Protein (6.3-8.2) g/dL Albumin (3.5-5.0) g/dL Disposition Clinical Impression: Pneumonia Disposition: HOME SELF-CARE Condition: Stable Instructions (If sedation given, give patient instructions): Pneumonia (ED) Additional Instructions: Please return to the Emergency Department if symptoms worsen or any other concerns. Prescriptions: Azithromycin [Zithromax Z-pack] 0 mg PO DIRECTED #1 pack Is patient prescribed a controlled substance at d/c from ED?: No Referrals: Dayo Vidal DO [Primary Care Provider] - 1-2 days Time of Disposition: 13:31
--- NOTE | 2018-11-30 11:47 | XR ---
EXAMINATION TYPE: XR chest 2V DATE OF EXAM: 11/30/2018 COMPARISON: 09/29/2018 HISTORY: 33-year-old male difficulty breathing, shortness of breath TECHNIQUE: PA and lateral views FINDINGS: Heart borderline enlarged. Small right effusion and right basilar opacity. Aorta within normal limits . IMPRESSION: New small right pleural effusion with adjacent atelectasis and/or consolidation.
[2018-11-30 12:05] LABS: Anisocytosis Moderate; Basophils % (A) 0 %; Eosinophils % (A) 0 %; HCT 32.1 % (34.0-46.0); HGB 9.8 gm/dL (11.4-16.0); Hypochromasia Marked; Lymphocytes # (A) 0.3 k/uL (1.0-4.8); Lymphocytes % (A) 3 %; MCH 23.6 pg (25.0-35.0); MCHC 30.5 g/dL (31.0-37.0); Mean Platelet Volume 5.1; Microcytosis Moderate; Monocytes # (A) 0.2 k/uL (0-1.0); Monocytes % (A) 2 %; Neutrophils # (A) 10.8 k/uL (1.3-7.7); Neutrophils % (A) 94 %; Platelet Count 789 k/uL (150-450); RBC 4.15 m/uL (3.80-5.40); RDW 20.2 % (11.5-15.5); WBC 11.4 k/uL (3.8-10.6)
[2018-11-30 12:12] LABS: ALT 34 U/L (9-52); AST 38 U/L (14-36); African American GFR (CKD) >90 (>60 ml/min/1.73 sqM); Albumin 4.3 g/dL (3.5-5.0); Alkaline Phosphatase 138 U/L (38-126); Anion Gap 13 mmol/L; Blood Urea Nitrogen 14 mg/dL (7-17); Calcium 9.3 mg/dL (8.4-10.2); Carbon Dioxide 33 mmol/L (22-30); Chloride 99 mmol/L (98-107); Glucose 78 mg/dL (74-99); Magnesium 2.1 mg/dL (1.6-2.3); Potassium 3.5 mmol/L (3.5-5.1); Sodium 145 mmol/L (137-145); Total Bilirubin 0.5 mg/dL (0.2-1.3); Total Protein 7.5 g/dL (6.3-8.2)
[2018-11-30 12:13] LABS: MCV 77.4 fL (80.0-100.0)
[2018-11-30 13:16] LABS: INR 0.9 (<1.2); Partial Thromboplastin Time 34.2 sec (22.0-30.0); Prothrombin Time 9.7 sec (9.0-12.0)
[2018-11-30] MEDS ORDERED: cefTRIAXone IN SWFI 1,000 MG/10 ML SYRINGE IVP STA (13:24)
[2018-11-30 13:41] VITALS: BP 114/80; PULSE 90; RESP 16
== END 2018-11-30 13:35 | disposition home or self-care (01) ==
LOC: EC 10:46
DX: J18.9 Pneumonia, unspecified organism (principal); J90 Pleural effusion, not elsewhere classified; M79.7 Fibromyalgia; I42.9 Cardiomyopathy, unspecified; G51.0 Bell's palsy; I50.9 Heart failure, unspecified; F41.9 Anxiety disorder, unspecified; F32.9 Major depressive disorder, single episode, unspecified; Z79.51 Long term (current) use of inhaled steroids; Z79.1 Long term (current) use of non-steroidal anti-inflammatories (NSAID); Z86.14 Personal history of Methicillin resistant Staphylococcus aureus infection; Z88.0 Allergy status to penicillin; Z88.5 Allergy status to narcotic agent; Z88.1 Allergy status to other antibiotic agents; Z88.8 Allergy status to other drugs, medicaments and biological substances; Z85.831 Personal history of malignant neoplasm of soft tissue; Z92.3 Personal history of irradiation; Z92.21 Personal history of antineoplastic chemotherapy; Z87.09 Personal history of other diseases of the respiratory system; Z85.850 Personal history of malignant neoplasm of thyroid
CPT/HCPCS: 36415; 94640; 93005; 83880; 80053; 83605; 83735; 84484; 85025; 85610; 85730; 71046; 99285; 96374; J0696

== ENCOUNTER 2019-01-26 18:20 | Emergency (ER) | payer OTHER ==
[2019-01-26 18:32] VITALS: BP 119/68; PULSE 62; RESP 18; TEMP 97.2
--- NOTE | 2019-01-26 19:06 | ED ---
Eye Problem HPI - General Chief complaint: Eye Problems Stated complaint: eye pain/discharge Time Seen by Provider: 01/26/19 18:35 Source: patient Mode of arrival: ambulatory Limitations: no limitations - History of Present Illness Initial comments: Patient is a 33-year-old female presenting to the emergency room with a chief complaint of bilateral eye pain. Patient reports she woke up this morning had difficulty opening apprise. She reports bilateral yellow crusting and itching. She does report some redness in the eyes. She states that pink eye has been going around at her daughter's school. Although, her daughter does not have. Patient denies taking medication to alleviate the symptoms. Patient does not wear contacts. Denies night sweats fevers or chills. Denies pain with extraocular eye movements. - Related Data Home Medications Medication Instructions Recorded Confirmed Albuterol Inhaler [Ventolin Hfa 2 puff INHALATION RT-Q6H PRN 04/03/18 11/30/18 Inhaler] Gabapentin [Neurontin] 400 mg PO BID 06/27/18 11/30/18 traMADol HCL [Ultram] 50 - 100 mg PO Q6H 06/27/18 11/30/18 Meloxicam [Mobic] 7.5 mg PO DAILY 11/30/18 11/30/18 Previous Rx's Medication Instructions Recorded Azithromycin [Zithromax Z-pack] 0 mg PO DIRECTED #1 pack 11/30/18 Polymyxin B-Trimeth Sulf Ophth 1 drops BOTH EYES Q4H #1 bottle 01/26/19 [Polytrim Opthalmic] Allergies Allergy/AdvReac Type Severity Reaction Status Date / Time amoxicillin trihydrate AdvReac Severe Nausea & Verified 01/26/19 18:27 [From Augmentin] Vomiting & Diarrhea codeine AdvReac Severe Dyspnea Verified 01/26/19 18:27 potassium clavulanate AdvReac Severe Nausea & Verified 01/26/19 18:27 [From Augmentin] Vomiting & Diarrhea ciprofloxacin AdvReac Dyspnea Verified 01/26/19 18:27 sumatriptan [From Imitrex] AdvReac Dyspnea Verified 01/26/19 18:27 Review of Systems ROS Statement: Those systems with pertinent positive or pertinent negative responses have been documented in the HPI. ROS Other: All systems not noted in ROS Statement are negative. 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 Left lung diaphragm paralyzed. On vent and in coma with pneumonia in [id number]. neuropathy bilateral feet. neuroma History of Any Multi-Drug Resistant Organisms: MRSA Date of last positivie culture/infection: 2008 MDRO Source:: left calf Past Surgical History: Cholecystectomy, Orthopedic Surgery Additional Past Surgical History / Comment(s): Multiple oral surgeries, bronchoscopy, thyroidectomy, myringotomy/tubes bilateral ears, LEFT WRIST SURGERY, g-tube removed april 21, 2017, Past Anesthesia/Blood Transfusion Reactions: No Reported Reaction Additional Past Anesthesia/Blood Transfusion Reaction / Comment(s): Use child size ET tube. Past Psychological History: Anxiety, Depression Smoking Status: Never smoker Past Alcohol Use History: None Reported Past Drug Use History: Marijuana - Past Family History Father Family Medical History: Hyperlipidemia, Hypertension, Thyroid Disorder Additional Family Medical History / Comment(s): anxiety depression Mother Family Medical History: Diabetes Mellitus, Thyroid Disorder Brother(s) Family Medical History: No Reported History Sister(s) Family Medical History: No Reported History Additional Family Medical History / Comment(s): PCOS Daughter(s) Family Medical History: No Reported History General Exam Limitations: no limitations General appearance: alert, in no apparent distress Head exam: Present: atraumatic, normocephalic, normal inspection Eye exam: Present: normal appearance, PERRL, EOMI, conjunctival injection, other (Yellow crusting around the eyelids.) Pupils: Present: normal accommodation ENT exam: Present: normal exam, mucous membranes moist Neck exam: Present: normal inspection, full ROM Respiratory exam: Present: normal lung sounds bilaterally Cardiovascular Exam: Present: regular rate, normal rhythm, normal heart sounds Extremities exam: Present: normal inspection, full ROM Back exam: Present: normal inspection, full ROM Neurological exam: Present: alert, oriented X3 Psychiatric exam: Present: normal affect, normal mood Skin exam: Present: warm, dry, intact, normal color Course Vital Signs 01/26/19 18:27 Temperature 97.2 F L Pulse Rate 62 Respiratory 18 Rate Blood Pressure 119/68 O2 Sat by Pulse 97 Oximetry Medical Decision Making - Medical Decision Making Patient is a 33-year-old female presenting to the emergency Department with chief complaint of bilateral eye pain and swelling. On exam patient has the lateral yellow crusting with conjunctival injections. There has been an outb reak at her daughter's school. I suspect her daughter has brought infection to the house and called the patient to have bacterial conjunctivitis bilaterally. Patient has no blurry vision or pain with extraocular movements. Patient will be treated with Polytrim. Patient advised that she is contagious for the next 24-48 hours. Strict return parameters were thoroughly discussed with patient was understanding and agreeable. Case discussed with physician. Disposition Clinical Impression: Bacterial conjunctivitis of both eyes Disposition: HOME SELF-CARE Condition: Stable Instructions (If sedation given, give patient instructions): Conjunctivitis (ED) Additional Instructions: Take prescribed medication as directed. Follow up with primary care. Return to emergency department if symptoms worsen. Prescriptions: Polymyxin B-Trimeth Sulf Ophth [Polytrim Opthalmic] 1 drops BOTH EYES Q4H #1 bottle Is patient prescribed a controlled substance at d/c from ED?: No Referrals: Dayo Vidal DO [Primary Care Provider] - 1-2 days Time of Disposition: 19:06
== END 2019-01-26 19:24 | disposition home or self-care (01) ==
LOC: EC 18:20
DX: H10.89 Other conjunctivitis (principal); M79.7 Fibromyalgia; Z85.831 Personal history of malignant neoplasm of soft tissue; Z92.21 Personal history of antineoplastic chemotherapy; Z86.14 Personal history of Methicillin resistant Staphylococcus aureus infection; Z79.1 Long term (current) use of non-steroidal anti-inflammatories (NSAID); Z79.891 Long term (current) use of opiate analgesic; Z79.899 Other long term (current) drug therapy; Z88.0 Allergy status to penicillin; Z88.5 Allergy status to narcotic agent; Z88.1 Allergy status to other antibiotic agents; Z88.8 Allergy status to other drugs, medicaments and biological substances
CPT/HCPCS: 99283

== ENCOUNTER 2019-02-21 15:28 | Emergency (ER) | payer OTHER ==
[2019-02-21 16:23] LABS: Anisocytosis Slight; Basophils % (A) 1 %; Eosinophils # (A) 0.1 k/uL (0-0.7); Eosinophils % (A) 2 %; HCT 32.2 % (34.0-46.0); HGB 9.6 gm/dL (11.4-16.0); Hypochromasia Marked; Lymphocytes # (A) 0.5 k/uL (1.0-4.8); Lymphocytes % (A) 12 %; MCH 24.3 pg (25.0-35.0); MCHC 29.8 g/dL (31.0-37.0); MCV 81.3 fL (80.0-100.0); Mean Platelet Volume 6.4; Microcytosis Slight; Monocytes # (A) 0.2 k/uL (0-1.0); Monocytes % (A) 5 %; Neutrophils # (A) 3.3 k/uL (1.3-7.7); Neutrophils % (A) 79 %; Platelet Count 393 k/uL (150-450); RBC 3.96 m/uL (3.80-5.40); RDW 18.2 % (11.5-15.5); WBC 4.2 k/uL (3.8-10.6)
[2019-02-21 16:29] LABS: Appearance,Urine Clear (Clear); Bilirubin,Urine Negative (Negative); Blood,Urine Negative (Negative); Color,Urine Light Yellow; Glucose,Urine (UA) Negative (Negative); Ketones,Urine Negative (Negative); Leukocyte Esterase,Urine Small (Negative); Mucus,Urine Occasional /hpf; Nitrite,Urine Negative (Negative); PH, Urine 5.5 (5.0-8.0); Protein,Urine Negative (Negative); RBC,Urine 1 /hpf (0-5); Squamous Epithelial Cell,Urine 1 /hpf (0-4); Urobilinogen,Urine <2.0 mg/dL (<2.0); WBC,Urine 2 /hpf (0-5)
[2019-02-21 16:35] LABS: ALT 138 U/L (4-34); AST 142 U/L (14-36); African American GFR (CKD) >90 (>60 ml/min/1.73 sqM); Albumin 4.8 g/dL (3.5-5.0); Alkaline Phosphatase 131 U/L (38-126); Anion Gap 8 mmol/L; Blood Urea Nitrogen 20 mg/dL (7-17); Calcium 9.6 mg/dL (8.4-10.2); Carbon Dioxide 29 mmol/L (22-30); Chloride 106 mmol/L (98-107); Glucose 69 mg/dL (74-99); INR 0.9 (<1.2); Magnesium 2.2 mg/dL (1.6-2.3); Non-African American GFR(CKD) >90 (>60 ml/min/1.73 sqM); Partial Thromboplastin Time 28.9 sec (22.0-30.0); Potassium 3.8 mmol/L (3.5-5.1); Prothrombin Time 9.7 sec (9.0-12.0); Sodium 143 mmol/L (137-145); Total Bilirubin 0.4 mg/dL (0.2-1.3); Total Protein 7.9 g/dL (6.3-8.2)
--- NOTE | 2019-02-21 17:02 | ED ---
Chest Pain HPI - General Chief Complaint: Chest Pain Stated Complaint: Chest pain Time Seen by Provider: 02/21/19 15:44 Source: patient Mode of arrival: ambulatory Limitations: no limitations - History of Present Illness Initial Comments: Patient is a 33-year-old female presenting to emergency Department with complaints of chest pain times one week. Patient describes the pain as a tightness or discomfort all over the front of her chest. She admits to mild cough. She did have pneumonia a few months ago and her symptoms feel similar to that. She denies shortness of breath, chills, fever. She also does admit to some mild right ear pain that started 2 days ago. She denies dizziness, blurry vision. She has no other complaints at this time. Upon arrival to the ER, her vital signs are stable. - Related Data Home Medications Medication Instructions Recorded Confirmed Albuterol Inhaler [Ventolin Hfa 2 puff INHALATION RT-Q6H PRN 04/03/18 11/30/18 Inhaler] Gabapentin [Neurontin] 400 mg PO TID 06/27/18 11/30/18 Previous Rx's Medication Instructions Recorded Polymyxin B-Trimeth Sulf Ophth 1 drops BOTH EYES Q4H #1 bottle 01/26/19 [Polytrim Opthalmic] Azithromycin [Zithromax Z-pack] 0 mg PO DIRECTED #1 pack 02/21/19 Allergies Allergy/AdvReac Type Severity Reaction Status Date / Time amoxicillin trihydrate AdvReac Severe Nausea & Verified 02/21/19 15:37 [From Augmentin] Vomiting & Diarrhea codeine AdvReac Severe Dyspnea Verified 02/21/19 15:37 potassium clavulanate AdvReac Severe Nausea & Verified 02/21/19 15:37 [From Augmentin] Vomiting & Diarrhea ciprofloxacin AdvReac Dyspnea Verified 02/21/19 15:37 sumatriptan [From Imitrex] AdvReac Dyspnea Verified 02/21/19 15:37 Review of Systems ROS Statement: Those systems with pertinent positive or pertinent negative responses have been documented in the HPI. ROS Other: All systems not noted in ROS Statement are negative. EKG Findings - EKG Comments: EKG Findings:: Ventricular rate 76, P or interval 152, QTC 409. Normal sinus rhythm. Nonspecific T-wave abnormality. No acute ST segment changes. Similar to previous EKG on 11/30/2018. 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 neuropathy bilateral feet. neuroma History of Any Multi-Drug Resistant Organisms: MRSA Date of last positivie culture/infection: 2008 MDRO Source:: left calf Past Surgical History: Cholecystectomy, Orthopedic Surgery Additional Past Surgical History / Comment(s): Multiple oral surgeries, bronchoscopy, thyroidectomy, myringotomy/tubes bilateral ears, LEFT WRIST SURGERY, g-tube removed april 21, 2017, Past Anesthesia/Blood Transfusion Reactions: No Reported Reaction Additional Past Anesthesia/Blood Transfusion Reaction / Comment(s): Use child size ET tube. Past Psychological History: Anxiety, Depression Smoking Status: Never smoker Past Alcohol Use History: None Reported Past Drug Use History: Marijuana - Past Family History Father Family Medical History: Hyperlipidemia, Hypertension, Thyroid Disorder Additional Family Medical History / Comment(s): anxiety depression Mother Family Medical History: Diabetes Mellitus, Thyroid Disorder Brother(s) Family Medical History: No Reported History Sister(s) Family Medical History: No Reported History Additional Family Medical History / Comment(s): PCOS Daughter(s) Family Medical History: No Reported History General Exam - General Exam Comments Initial Comments: GENERAL: Well-appearing, well-nourished and in no acute distress. HEAD: Atraumatic, normocephalic. EYES: Pupils equal round and reactive to light, extraocular movements intact, sclera anicteric, conjunctiva are normal. ENT: TMs normal, nares patent, oropharynx clear without exudates. Moist mucous membranes. Patient has no teeth. No signs of an abscess or erythema gumline. NECK: Normal range of motion, supple without lymphadenopathy or JVD. LUNGS: Breath sounds clear to auscultation bilaterally and equal. No wheezes rales or rhonchi. HEART: Regular rate and rhythm without murmurs, rubs or gallops. ABDOMEN: Soft, nontender, normoactive bowel sounds. No guarding, no rebound. No masses appreciated. : Deferred EXTREMITIES: Normal range of motion, no pitting or edema. No clubbing or cyanosis. NEUROLOGICAL: Normal speech, normal gait. PSYCH: Normal mood, normal affect. SKIN: Warm, Dry, normal turgor, no rashes or lesions noted. Limitations: no limitations Course Vital Signs 02/21/19 02/21/19 02/21/19 15:32 16:36 17:14 Temperature 97.4 F L Pulse Rate 86 Respiratory 18 20 16 Rate Blood Pressure 131/85 O2 Sat by Pulse 95 Oximetry 02/21/19 18:23 Temperature 98.3 F Pulse Rate 80 Respiratory 16 Rate Blood Pressure 117/91 O2 Sat by Pulse 100 Oximetry Chest Pain MDM - MDM Patient is a 33-year-old female presenting to the emergency Department with complaints of chest pain times one week. It is either stable. Exam was unremarkable. EKG is normal. Lab work shows no acute abnormalities. Patient's glucose was low but states this is normal for her. Patient also has slightly elevated liver enzymes which she states she is aware of and is following with her doctor. Urine is normal no signs of infection or . Chest x-ray shows some minimal left pleural effusion. I discussed these findings with the patient. Patient has been eating and resting comfortable in the bed without discomfort. Given her symptoms patient will be started on antibiotic for possible pneumonia. Patient will follow up with her PCP. Patient will also be given ENT referral for her right ear pain. Patient is in agreement with this plan of care. She is stable for discharge at this time. Return parameters were discussed with the patient and she verbalized understanding. Case discussed with Dr. Gomez. Disposition Clinical Impression: Pneumonia, Chest pain, Right ear pain Disposition: HOME SELF-CARE Condition: Stable Instructions (If sedation given, give patient instructions): Pneumonia (ED) Additional Instructions: Please return to the Emergency Department if symptoms worsen or any other concerns. Take medication as prescribed. Follow-up with ENT regarding right ear pain. Prescriptions: Azithromycin [Zithromax Z-pack] 0 mg PO DIRECTED #1 pack Is patient prescribed a controlled substance at d/c from ED?: No Referrals: Dayo Vidal DO [Primary Care Provider] - 1-2 days Jose Bhatti DO [Doctor of Osteopathic Medicine] - 1-2 days
[2019-02-21 17:14] VITALS: RESP 16
--- NOTE | 2019-02-21 17:22 | XR ---
EXAMINATION TYPE: XR chest 2V DATE OF EXAM: 02/21/2019 COMPARISON: 11/30/2018 HISTORY: Short of breath. Chest pain TECHNIQUE: FINDINGS: Heart is normal. Lungs are clear. There is slight blunting left costophrenic angle.. Bony t horax is intact. IMPRESSION: No heart failure.. Almost complete clearing of the pleural fluid compared to old exam. Mi nimal left pleural fluid.
[2019-02-21 18:11] LABS: Glucose,Whole Blood 68 mg/dL (75-99)
[2019-02-21 18:27] VITALS: BP 117/91; PULSE 80; TEMP 98.3
== END 2019-02-21 18:20 | disposition home or self-care (01) ==
LOC: EC 15:28
DX: J18.9 Pneumonia, unspecified organism (principal); H92.01 Otalgia, right ear; R74.8 Abnormal levels of other serum enzymes; J90 Pleural effusion, not elsewhere classified; M79.7 Fibromyalgia; F41.9 Anxiety disorder, unspecified; G62.9 Polyneuropathy, unspecified; Z88.0 Allergy status to penicillin; Z88.1 Allergy status to other antibiotic agents; Z88.5 Allergy status to narcotic agent; Z88.8 Allergy status to other drugs, medicaments and biological substances; Z79.899 Other long term (current) drug therapy; Z86.14 Personal history of Methicillin resistant Staphylococcus aureus infection; Z86.69 Personal history of other diseases of the nervous system and sense organs; Z82.49 Family history of ischemic heart disease and other diseases of the circulatory system
CPT/HCPCS: 36415; 71046; 80053; 81001; 81025; 83735; 84484; 85025; 85610; 85730; 93005; 99285

== ENCOUNTER 2019-07-06 18:32 | Emergency (ER) | payer OTHER ==
[2019-07-06] MEDS ORDERED: ACETAMINOPHEN TAB 325 MG TAB PO STA (20:30)
[2019-07-06 21:01] VITALS: RESP 18
[2019-07-06 21:33] LABS: ALT 28 U/L (4-34); AST 60 U/L (14-36); African American GFR (CKD) 80 (>60 ml/min/1.73 sqM); Albumin 4.5 g/dL (3.5-5.0); Alkaline Phosphatase 93 U/L (38-126); Anion Gap 9 mmol/L; Blood Urea Nitrogen 15 mg/dL (7-17); Calcium 9.6 mg/dL (8.4-10.2); Carbon Dioxide 32 mmol/L (22-30); Chloride 97 mmol/L (98-107); Glucose 91 mg/dL (74-99); Non-African American GFR(CKD) 69 (>60 ml/min/1.73 sqM); Potassium 4.2 mmol/L (3.5-5.1); Sodium 138 mmol/L (137-145); Total Bilirubin 0.1 mg/dL (0.2-1.3); Total Protein 7.4 g/dL (6.3-8.2)
[2019-07-06 21:35] LABS: Anisocytosis Slight; Basophils % (A) 1 %; Eosinophils # (A) 0.1 k/uL (0-0.7); Eosinophils % (A) 4 %; HGB 9.8 gm/dL (11.4-16.0); Hypochromasia Marked; Lymphocytes # (A) 0.5 k/uL (1.0-4.8); Lymphocytes % (A) 14 %; MCH 25.1 pg (25.0-35.0); MCHC 31.5 g/dL (31.0-37.0); MCV 79.6 fL (80.0-100.0); Microcytosis Slight; Monocytes # (A) 0.2 k/uL (0-1.0); Monocytes % (A) 5 %; Neutrophils # (A) 2.4 k/uL (1.3-7.7); Neutrophils % (A) 73 %; Platelet Count 324 k/uL (150-450); RBC 3.89 m/uL (3.80-5.40); RDW 17.3 % (11.5-15.5); WBC 3.3 k/uL (3.8-10.6)
--- NOTE | 2019-07-06 21:49 | XR ---
EXAMINATION TYPE: XR shoulder complete LT DATE OF EXAM: 07/06/2019 COMPARISON: NONE HISTORY: Left shoulder pain TECHNIQUE: 3 views FINDINGS: Glenohumeral joint appears intact. I see no fracture nor dislocation. Soft tissues appear n ormal. IMPRESSION: Normal left shoulder exam.
[2019-07-06 22:00] LABS: HCG,Qualitative Serum Not Detected
--- NOTE | 2019-07-06 23:04 | ED ---
General Adult HPI - General Chief complaint: Extremity Problem,Nontraumatic Stated complaint: LT Shoulder pain/blurred vision Time Seen by Provider: 07/06/19 20:00 Source: patient, RN notes reviewed, old records reviewed Mode of arrival: ambulatory - History of Present Illness Initial comments: 34-year-old female patient proceeded to complain of left shoulder pain. Patient reports that she has had difficulties with this shoulder in the past with patient worse that she woke up today and he has significant pain with range of motion. Patient reports that the pains in the anterior aspect the shoulder. Denies any chest pain shortness of breath. Denies any other complaints. Systemic: Pt denies fatigue, fever/chills, rash. Pt denies weakness, night sweats, weight loss. Neuro: Pt denies headache, syncope or pre-syncope. HEENT: Pt denies ocular discharge or irritation, otalgia, rhinorrhea, pharyngitis or notable lymphadenopathy. Cardiopulmonary: Pt denies chest pain, SOB, heart palpitations, dyspnea on exertion. Abdominal/GI: Pt denies abdominal pain, n/v/d. : Pt denies dysuria, burning w/ urination, frequency/urgency. Denies new onset urinary or bowel incontinence. MSK: Pt denies myalgia, loss of strength or function in extremities. Neuro: Pt denies new onset weakness, paresthesias. - Related Data Home Medications Medication Instructions Recorded Confirmed Albuterol Inhaler (Mhu) [Ventolin 2 puff INHALATION RT-Q6H PRN 04/03/18 11/30/18 Hfa Inhaler (Mhu)] Gabapentin [Neurontin] 400 mg PO TID 06/27/18 11/30/18 Previous Rx's Medication Instructions Recorded Polymyxin B-Trimeth Sulf Ophth 1 drops BOTH EYES Q4H #1 bottle 01/26/19 [Polytrim Opthalmic] Azithromycin [Zithromax Z-pack] 0 mg PO DIRECTED #1 pack 02/21/19 Allergies Allergy/AdvReac Type Severity Reaction Status Date / Time amoxicillin trihydrate AdvReac Severe Nausea & Verified 02/21/19 15:37 [From Augmentin] Vomiting & Diarrhea codeine AdvReac Severe Dyspnea Verified 02/21/19 15:37 potassium clavulanate AdvReac Severe Nausea & Verified 02/21/19 15:37 [From Augmentin] Vomiting & Diarrhea ciprofloxacin AdvReac Dyspnea Verified 02/21/19 15:37 sumatriptan [From Imitrex] AdvReac Dyspnea Verified 02/21/19 15:37 Review of Systems ROS Statement: Those systems with pertinent positive or pertinent negative responses have been documented in the HPI. ROS Other: All systems not noted in ROS Statement are negative. Past Medical History Past Medical History: Cancer, Heart Failure, Fibromyalgia, Thyroid Disorder Additional Past Medical History / Comment(s): Rhabdomyosarcoma affecting head/n ash at age 5 yrs with chemo/radiation-affected lungs and has COPD like symptoms/restrictive airway, early 's had thyroid cancer with surgery, cardiomyopathy/CHF with , Martinez's palsey, migraines, UTI. Left lung diaphragm paralyzed. On vent and in coma with pneumonia in [id number]. neuropathy bilateral feet. neuroma History of Any Multi-Drug Resistant Organisms: MRSA Date of last positivie culture/infection: 2008 MDRO Source:: left calf Past Surgical History: Cholecystectomy, Orthopedic Surgery Additional Past Surgical History / Comment(s): Multiple oral surgeries, bronchoscopy, thyroidectomy, myringotomy/tubes bilateral ears, LEFT WRIST SURGERY, g-tube removed april 21, 2017, Past Anesthesia/Blood Transfusion Reactions: No Reported Reaction Additional Past Anesthesia/Blood Transfusion Reaction / Comment(s): Use child size ET tube. Past Psychological History: Anxiety, Depression Smoking Status: Never smoker Past Alcohol Use History: None Reported Past Drug Use History: Marijuana - Past Family History Father Family Medical History: Hyperlipidemia, Hypertension, Thyroid Disorder Additional Family Medical History / Comment(s): anxiety depression Mother Family Medical History: Diabetes Mellitus, Thyroid Disorder Brother(s) Family Medical History: No Reported History Sister(s) Family Medical History: No Reported History Additional Family Medical History / Comment(s): PCOS Daughter(s) Family Medical History: No Reported History General Exam - General Exam Comments Initial Comments: Constitutional: NAD, AOX3, Pt has pleasant affect. HEENT: NC/AT, trachea midline, neck supple, no lymphadenopathy. Posterior pharynx non erythematous, without exudates. External ears appear normal, without discharge. Mucous membranes moist. Eyes PERRLA, EOM intact. There is no scleral icterus. No pallor noted. Cardiopulmonary: RRR, no murmurs, rubs or gallops, no JVD noted. Lungs CTAB in anterior and posterior manzo. No peripheral edema. Abdominal exam: Abdomen soft and non-distended. Abdomen non-tender to palpation in all 4 quadrants. Bowel sounds active in LLQ. No hepatosplenomegaly. No ecchymosis Neuro: CN II-XII intact. No nuchal rigidity. No raccon eyes, no landeros sign, no hemotympanum. No cervical spinal tenderness. MSK: Left anterior shoulder tender to palpation. Reproducible discomfort range of motion. Neurovascularly intact. No skin changes. Empty can test positive. No posterior calf tenderness bilaterally, homans sign negative bilaterally. Posterior tibialis and radial pulse +2 bilaterally. Sensation intact in upper and lower extremities. Full active ROM in upper and lower extremities, 5/5 stregnth. Course Vital Signs 07/06/19 19:41 Temperature 98.2 F Pulse Rate 83 Respiratory 18 Rate Blood Pressure 120/92 O2 Sat by Pulse 100 Oximetry Medical Decision Making - Medical Decision Making 34-year-old female patient proceeded to complain of left shoulder pain. Patient reports that she has had difficulties with this shoulder in the past with patient worse that she woke up today and he has significant pain with range of motion. Patient reports that the pains in the anterior aspect the shoulder. Denies any chest pain shortness of breath. Denies any other complaints. Patient will signs are stable, afebrile. Physical exam displayed: Left anterior shoulder tender to palpation. Reproducible discomfort range of motion. Neurovascularly intact. No skin changes. Empty can test positive. Plain film of left shoulder displayed normal left shoulder exam. Laboratory investigations revealed hemoglobin round baseline. Mildly increased creatinine. Troponin negative. EKG nonischemic. Patient is feeling improved with Tylenol will discharge the patient primary care follow-up. Case discussed with Dr. Delarosa. - Lab Data Result diagrams: 07/06/19 21:15 07/06/19 21:15 Lab Results 07/06/19 07/06/19 07/06/19 Range/Units 21:15 21:15 21:15 WBC 3.3 L (3.8-10.6) k/uL RBC 3.89 (3.80-5.40) m/uL Hgb 9.8 L (11.4-16.0) gm/dL Hct 31.0 L (34.0-46.0) % MCV 79.6 L (80.0-100.0) fL MCH 25.1 (25.0-35.0) pg MCHC 31.5 (31.0-37.0) g/dL RDW 17.3 H (11.5-15.5) % Plt Count 324 (150-450) k/uL Neutrophils % 73 % Lymphocytes % 14 % Monocytes % 5 % Eosinophils % 4 % Basophils % 1 % Neutrophils # 2.4 (1.3-7.7) k/uL Lymphocytes # 0.5 L (1.0-4.8) k/uL Monocytes # 0.2 (0-1.0) k/uL Eosinophils # 0.1 (0-0.7) k/uL Basophils # 0.0 (0-0.2) k/uL Hypochromasia Marked Anisocytosis Slight Microcytosis Slight Sodium 138 (137-145) mmol/L Potassium 4.2 (3.5-5.1) mmol/L Chloride 97 L (98-107) mmol/L Carbon Dioxide 32 H (22-30) mmol/L Anion Gap 9 mmol/L BUN 15 (7-17) mg/dL Creatinine 1.07 H (0.52-1.04) mg/dL Est GFR (CKD-EPI)AfAm 80 (>60 ml/min/1.73 sqM) Est GFR (CKD-EPI)NonAf 69 (>60 ml/min/1.73 sqM) Glucose 91 (74-99) mg/dL Calcium 9.6 (8.4-10.2) mg/dL Total Bilirubin 0.1 L (0.2-1.3) mg/dL AST 60 H (14-36) U/L ALT 28 (4-34) U/L Alkaline Phosphatase 93 (38-126) U/L Troponin I <0.012 (0.000-0.034) ng/mL Total Protein 7.4 (6.3-8.2) g/dL Albumin 4.5 (3.5-5.0) g/dL HCG, Qual Not Detected - EKG Data -: EKG Interpreted by Me (and Dr. Delarosa ) EKG Comments: Ventricular rate 76, painful and 58, QRS 82, QT/QTC 370/416. Normal sensation, nonspecific T wave abnormality. Abnormal EKG. No concern for acute ischemia. Disposition Clinical Impression: Shoulder sprain Disposition: HOME SELF-CARE Condition: Stable Instructions (If sedation given, give patient instructions): Shoulder Sprain (ED) Additional Instructions: Follow-up with primary care provider tomorrow. Follow up with orthopedic consult if symptoms persist. Have kidney function tests rechecked by PCP. Return to ER if condition worsens. Is patient prescribed a controlled substance at d/c from ED?: No Referrals: Dayo Vidal DO [Primary Care Provider] - 1-2 days Reji Rinaldi MD [Medical Doctor] - 1-2 days
[2019-07-06 23:17] VITALS: BP 114/83; PULSE 78; TEMP 97
== END 2019-07-06 23:15 | disposition home or self-care (01) ==
LOC: EC 18:32
DX: S43.402A Unspecified sprain of left shoulder joint, initial encounter (principal); M79.7 Fibromyalgia; I50.9 Heart failure, unspecified; Z79.51 Long term (current) use of inhaled steroids; Z79.899 Other long term (current) drug therapy; Z88.0 Allergy status to penicillin; Z88.5 Allergy status to narcotic agent; Z88.1 Allergy status to other antibiotic agents; Z88.8 Allergy status to other drugs, medicaments and biological substances; Z85.850 Personal history of malignant neoplasm of thyroid; Z85.831 Personal history of malignant neoplasm of soft tissue; Z92.21 Personal history of antineoplastic chemotherapy; Z92.3 Personal history of irradiation; Z86.14 Personal history of Methicillin resistant Staphylococcus aureus infection; X58.XXXA Exposure to other specified factors, initial encounter
CPT/HCPCS: 36415; 80053; 84484; 84703; 85025; 93005; 99284

== ENCOUNTER 2020-10-16 17:14 | Emergency (ER) | payer OTHER ==
[2020-10-16 17:24] VITALS: TEMP 98.7
[2020-10-16] MEDS ORDERED: SODIUM CHLORIDE 0.9% 1,000 ML IV STA (17:48)
--- NOTE | 2020-10-16 18:10 | ED ---
General Adult HPI - General Chief complaint: Upper Respiratory Infection Stated complaint: Chills,Chest Pain Time Seen by Provider: 10/16/20 17:32 Source: patient Mode of arrival: ambulatory Limitations: no limitations - History of Present Illness Initial comments: 35-year-old female presents to the emergency room with a chief complaint of chest pain and cough. Patient reported his symptoms been ongoing for the past several days. She reports pleuritic chest pain that is located in the sternal region without any radiation. She denies any lightheadedness, dizziness but does report fevers and chills. Denies any loss of smell or taste. Covid vacc inated. Reports some nausea but denies any vomiting diarrhea or constipation. Denies any abdominal or back pain. Smoker. - Related Data Home Medications Medication Instructions Recorded Confirmed Gabapentin [Neurontin] 400 mg PO TID 06/27/18 10/16/20 Albuterol Sulfate [Proair Hfa] 2 puff INHALATION RT-Q6H PRN 10/16/20 10/16/20 Famotidine [Pepcid] 20 mg PO BID PRN 10/16/20 10/16/20 Venlafaxine HCl ER [Effexor Xr] 150 mg PO DAILY 10/16/20 10/16/20 traMADol HCL 50 mg PO Q4H PRN 10/16/20 10/16/20 Allergies Allergy/AdvReac Type Severity Reaction Status Date / Time amoxicillin trihydrate AdvReac Severe Nausea & Verified 10/16/20 18:27 [From Augmentin] Vomiting & Diarrhea codeine AdvReac Severe Dyspnea Verified 10/16/20 18:27 potassium clavulanate AdvReac Severe Nausea & Verified 10/16/20 18:27 [From Augmentin] Vomiting & Diarrhea ciprofloxacin AdvReac Dyspnea Verified 10/16/20 18:27 sumatriptan [From Imitrex] AdvReac Dyspnea Verified 10/16/20 18:27 Review of Systems ROS Statement: Those systems with pertinent positive or pertinent negative responses have been documented in the HPI. ROS Other: All systems not noted in ROS Statement are negative. 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 neuropathy bilateral feet. neuroma History of Any Multi-Drug Resistant Organisms: MRSA Date of last positivie culture/infection: 2008 MDRO Source:: left calf Past Surgical History: Cholecystectomy, Orthopedic Surgery Additional Past Surgical History / Comment(s): Multiple oral surgeries, bronchoscopy, thyroidectomy, myringotomy/tubes bilateral ears, LEFT WRIST SURGERY, g-tube removed april 21, 2017, Past Anesthesia/Blood Transfusion Reactions: No Reported Reaction Additional Past Anesthesia/Blood Transfusion Reaction / Comment(s): Use child size ET tube. Past Psychological History: Anxiety, Depression Smoking Status: Current some day smoker Past Alcohol Use History: None Reported Past Drug Use History: Marijuana - Past Family History Father Family Medical History: Hyperlipidemia, Hypertension, Thyroid Disorder Additional Family Medical History / Comment(s): anxiety depression Mother Family Medical History: Diabetes Mellitus, Thyroid Disorder Brother(s) Family Medical History: No Reported History Sister(s) Family Medical History: No Reported History Additional Family Medical History / Comment(s): PCOS Daughter(s) Family Medical History: No Reported History General Exam Limitations: no limitations General appearance: alert, in no apparent distress Head exam: Present: atraumatic, normal inspection Eye exam: Present: normal appearance, EOMI Pupils: Present: normal accommodation ENT exam: Present: normal exam, normal oropharynx, mucous membranes moist, TM's normal bilaterally, normal external ear exam Neck exam: Present: normal inspection, full ROM. Absent: tenderness, lymphadenopathy Respiratory exam: Present: normal lung sounds bilaterally. Absent: respiratory distress, wheezes, rales, rhonchi, stridor, chest wall tenderness, accessory muscle use Cardiovascular Exam: Present: regular rate, normal rhythm, normal heart sounds GI/Abdominal exam: Present: soft. Absent: distended, tenderness, guarding, rebound, rigid Extremities exam: Present: normal inspection, full ROM, normal capillary refill. Absent: tenderness, pedal edema, joint swelling Back exam: Present: normal inspection, full ROM. Absent: tenderness, CVA tenderness (R), CVA tenderness (L) Neurological exam: Present: alert, oriented X3 Psychiatric exam: Present: normal affect, normal mood Skin exam: Present: warm, dry, intact, normal color Course Vital Signs 10/16/20 17:21 Temperature 98.7 F Pulse Rate 97 Respiratory 20 Rate Blood Pressure 124/83 O2 Sat by Pulse 98 Oximetry Medical Decision Making - Medical Decision Making 35-year-old female presents to the emergency room with a chief complaint of chest pain and cough. CBC unremarkable. CMP shows mild elevation in her BUN and creatinine. Chest x-ray is unremarkable. Negative troponin. Nonischemic EKG. Coags within normal limits. Negative d-dimer. Patient is otherwise well- appearing with stable vital signs. Patient will be discharged with an outp atient follow-up. Return parameters were thoroughly discussed the patient was unsteady and agreeable. Case discussed with physician. - Lab Data Result diagrams: 10/16/20 18:21 10/16/20 18:21 Lab Results 10/16/20 10/16/20 10/16/20 Range/Units 18:21 18:21 18:21 WBC 6.9 (3.8-10.6) k/uL RBC 4.68 (3.80-5.40) m/uL Hgb 13.3 (11.4-16.0) gm/dL Hct 41.3 (34.0-46.0) % MCV 88.2 (80.0-100.0) fL MCH 28.5 (25.0-35.0) pg MCHC 32.3 (31.0-37.0) g/dL RDW 16.6 H (11.5-15.5) % Plt Count 424 (150-450) k/uL MPV 6.5 Neutrophils % 80 % Lymphocytes % 12 % Monocytes % 5 % Eosinophils % 1 % Basophils % 1 % Neutrophils # 5.5 (1.3-7.7) k/uL Lymphocytes # 0.8 L (1.0-4.8) k/uL Monocytes # 0.3 (0-1.0) k/uL Eosinophils # 0.1 (0-0.7) k/uL Basophils # 0.0 (0-0.2) k/uL Anisocytosis Slight PT 9.7 (9.0-12.0) sec INR 0.9 (<1.2) APTT 29.1 (22.0-30.0) sec D-Dimer 0.34 (<0.60) mg/L FEU Sodium 140 (137-145) mmol/L Potassium 3.9 (3.5-5.1) mmol/L Chloride 101 (98-107) mmol/L Carbon Dioxide 28 (22-30) mmol/L Anion Gap 11 mmol/L BUN 19 H (7-17) mg/dL Creatinine 1.28 H (0.52-1.04) mg/dL Est GFR (CKD-EPI)AfAm 64 (>60 ml/min/1.73 sqM) Est GFR (CKD-EPI)NonAf 55 (>60 ml/min/1.73 sqM) Glucose 99 (74-99) mg/dL Calcium 10.3 H (8.4-10.2) mg/dL Total Bilirubin 0.3 (0.2-1.3) mg/dL AST 47 H (14-36) U/L ALT 25 (4-34) U/L Alkaline Phosphatase 119 (38-126) U/L Troponin I (0.000-0.034) ng/mL Total Protein 9.0 H (6.3-8.2) g/dL Albumin 5.3 H (3.5-5.0) g/dL Coronavirus (PCR) (Not Detectd) 10/16/20 10/16/20 Range/Units 18:21 18:21 WBC (3.8-10.6) k/uL RBC (3.80-5.40) m/uL Hgb (11.4-16.0) gm/dL Hct (34.0-46.0) % MCV (80.0-100.0) fL MCH (25.0-35.0) pg MCHC (31.0-37.0) g/dL RDW (11.5-15.5) % Plt Count (150-450) k/uL MPV Neutrophils % % Lymphocytes % % Monocytes % % Eosinophils % % Basophils % % Neutrophils # (1.3-7.7) k/uL Lymphocytes # (1.0-4.8) k/uL Monocytes # (0-1.0) k/uL Eosinophils # (0-0.7) k/uL Basophils # (0-0.2) k/uL Anisocytosis PT (9.0-12.0) sec INR (<1.2) APTT (22.0-30.0) sec D-Dimer (<0.60) mg/L FEU Sodium (137-145) mmol/L Potassium (3.5-5.1) mmol/L Chloride (98-107) mmol/L Carbon Dioxide (22-30) mmol/L Anion Gap mmol/L BUN (7-17) mg/dL Creatinine (0.52-1.04) mg/dL Est GFR (CKD-EPI)AfAm (>60 ml/min/1.73 sqM) Est GFR (CKD-EPI)NonAf (>60 ml/min/1.73 sqM) Glucose (74-99) mg/dL Calcium (8.4-10.2) mg/dL Total Bilirubin (0.2-1.3) mg/dL AST (14-36) U/L ALT (4-34) U/L Alkaline Phosphatase (38-126) U/L Troponin I <0.012 (0.000-0.034) ng/mL Total Protein (6.3-8.2) g/dL Albumin (3.5-5.0) g/dL Coronavirus (PCR) Not Detected (Not Detectd) Disposition Clinical Impression: Bronchitis Disposition: HOME SELF-CARE Condition: Stable Instructions (If sedation given, give patient instructions): Acute Bronchitis (ED) Additional Instructions: Please return to the Emergency Department if symptoms worsen or any other concerns. Is patient prescribed a controlled substance at d/c from ED?: No Referrals: Dayo Vidal DO [Primary Care Provider] - 1-2 days Time of Disposition: 19:21
--- NOTE | 2020-10-16 18:25 | XR ---
EXAMINATION TYPE: XR chest 2V DATE OF EXAM: 10/16/2020 COMPARISON: Multiple chest radiograph most recently dated 02/21/2019 HISTORY: Fever, chills TECHNIQUE: Frontal and lateral views of the chest are obtained. FINDINGS: There is no focal air space opacity, pleural effusion, or pneumothorax seen. The cardiac silhouette size is within normal limits. The osseous structures are intact. Surgical changes of the upper neck with multiple surgical kathryn likely thyroidectomy. Surgical kathryn overlie the right u pper abdomen. IMPRESSION: No acute cardiopulmonary process.
[2020-10-16 18:41] LABS: Anisocytosis Slight; Basophils % (A) 1 %; Eosinophils # (A) 0.1 k/uL (0-0.7); Eosinophils % (A) 1 %; HCT 41.3 % (34.0-46.0); HGB 13.3 gm/dL (11.4-16.0); Lymphocytes # (A) 0.8 k/uL (1.0-4.8); Lymphocytes % (A) 12 %; MCH 28.5 pg (25.0-35.0); MCHC 32.3 g/dL (31.0-37.0); MCV 88.2 fL (80.0-100.0); Mean Platelet Volume 6.5; Monocytes # (A) 0.3 k/uL (0-1.0); Monocytes % (A) 5 %; Neutrophils # (A) 5.5 k/uL (1.3-7.7); Neutrophils % (A) 80 %; Platelet Count 424 k/uL (150-450); RBC 4.68 m/uL (3.80-5.40); RDW 16.6 % (11.5-15.5); WBC 6.9 k/uL (3.8-10.6)
[2020-10-16 18:49] LABS: Albumin 5.3 g/dL (3.5-5.0); Calcium 10.3 mg/dL (8.4-10.2); Potassium 3.9 mmol/L (3.5-5.1); Total Bilirubin 0.3 mg/dL (0.2-1.3)
[2020-10-16 18:54] LABS: INR 0.9 (<1.2); Partial Thromboplastin Time 29.1 sec (22.0-30.0); Prothrombin Time 9.7 sec (9.0-12.0)
[2020-10-16 19:35] VITALS: BP 134/93; PULSE 61; RESP 18
== END 2020-10-16 19:38 | disposition home or self-care (01) ==
LOC: EC 17:14
DX: J40 Bronchitis, not specified as acute or chronic (principal); I50.9 Heart failure, unspecified; E07.9 Disorder of thyroid, unspecified; F17.200 Nicotine dependence, unspecified, uncomplicated; F41.9 Anxiety disorder, unspecified; F32.9 Major depressive disorder, single episode, unspecified; I42.9 Cardiomyopathy, unspecified; F12.90 Cannabis use, unspecified, uncomplicated; Z20.822 Contact with and (suspected) exposure to COVID-19; Z88.5 Allergy status to narcotic agent; Z88.1 Allergy status to other antibiotic agents; Z85.850 Personal history of malignant neoplasm of thyroid; Z86.018 Personal history of other benign neoplasm; Z87.440 Personal history of urinary (tract) infections; Z90.49 Acquired absence of other specified parts of digestive tract
CPT/HCPCS: 36415; 71046; 80053; 84484; 85025; 85379; 85610; 85730; 87635; 96360; 99285

== ENCOUNTER 2020-11-27 00:30 | Emergency (ER) | payer OTHER ==
[2020-11-27 00:35] VITALS: PULSE 89; TEMP 97.6
--- NOTE | 2020-11-27 02:12 | XR ---
EXAMINATION TYPE: XR chest 2V DATE OF EXAM: 11/27/2020 COMPARISON: 10/16/2020 HISTORY: Difficulty breathing TECHNIQUE: 2 views FINDINGS: There is no heart failure nor confluent pneumonic infiltrate. Costophrenic angles are clear . There are multiple surgical clips over the base of the neck. IMPRESSION: No active cardiopulmonary disease. No change.
--- NOTE | 2020-11-27 02:20 | ED ---
General Adult HPI - General Chief complaint: Shortness of Breath Stated complaint: Difficulty Breathing Time Seen by Provider: 11/27/20 00:39 Source: patient, RN notes reviewed Mode of arrival: ambulatory - History of Present Illness Initial comments: 35-year-old female with a completed past medical history presents to the emergency room for shortness of breath. Patient presents to the emergency room for shortness of breath for the past day. Patient states she has left-sided rib pain that has been on and off for a few weeks but is now worsening with deep breathing and certain movements. Patient denies any anterior chest pain. Denies pain with exertion, more with movement such as twisting and deep breathing. Patient denies any orthopnea. Denies fevers or cough. Patient has no other complaints at this time including chest pain, abdominal pain, nausea or vomiting, headache, or visual changes. - Related Data Home Medications Medication Instructions Recorded Confirmed Gabapentin [Neurontin] 400 mg PO TID 06/27/18 10/16/20 Albuterol Sulfate [Proair Hfa] 2 puff INHALATION RT-Q6H PRN 10/16/20 10/16/20 Famotidine [Pepcid] 20 mg PO BID PRN 10/16/20 10/16/20 Venlafaxine HCl ER [Effexor Xr] 150 mg PO DAILY 10/16/20 10/16/20 traMADol HCL 50 mg PO Q4H PRN 10/16/20 10/16/20 Allergies Allergy/AdvReac Type Severity Reaction Status Date / Time amoxicillin trihydrate AdvReac Severe Nausea & Verified 11/27/20 00:35 [From Augmentin] Vomiting & Diarrhea codeine AdvReac Severe Dyspnea Verified 11/27/20 00:35 potassium clavulanate AdvReac Severe Nausea & Verified 11/27/20 00:35 [From Augmentin] Vomiting & Diarrhea ciprofloxacin AdvReac Dyspnea Verified 11/27/20 00:35 sumatriptan [From Imitrex] AdvReac Dyspnea Verified 11/27/20 00:35 Review of Systems ROS Statement: Those systems with pertinent positive or pertinent negative responses have been documented in the HPI. ROS Other: All systems not noted in ROS Statement are negative. 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 Left lung diaphragm paralyzed. On vent and in coma with pneumonia in [id number]. neuropathy bilateral feet. neuroma History of Any Multi-Drug Resistant Organisms: MRSA Date of last positivie culture/infection: 2008 MDRO Source:: left calf Past Surgical History: Cholecystectomy, Orthopedic Surgery Additional Past Surgical History / Comment(s): Multiple oral surgeries, bronchoscopy, thyroidectomy, myringotomy/tubes bilateral ears, LEFT WRIST SURGERY, g-tube removed april 21, 2017, Past Anesthesia/Blood Transfusion Reactions: No Reported Reaction Additional Past Anesthesia/Blood Transfusion Reaction / Comment(s): Use child si ze ET tube. Past Psychological History: Anxiety, Depression Smoking Status: Current some day smoker Past Alcohol Use History: None Reported Past Drug Use History: Marijuana - Past Family History Father Family Medical History: Hyperlipidemia, Hypertension, Thyroid Disorder Additional Family Medical History / Comment(s): anxiety depression Mother Family Medical History: Diabetes Mellitus, Thyroid Disorder Brother(s) Family Medical History: No Reported History Sister(s) Family Medical History: No Reported History Additional Family Medical History / Comment(s): PCOS Daughter(s) Family Medical History: No Reported History General Exam General appearance: alert, in no apparent distress Head exam: Present: atraumatic Eye exam: Present: normal appearance, PERRL, EOMI. Absent: scleral icterus, conjunctival injection ENT exam: Present: normal exam, mucous membranes moist Neck exam: Present: normal inspection, full ROM. Absent: tenderness Respiratory exam: Present: normal lung sounds bilaterally, chest wall tenderness (Left-sided lower rib tenderness.). Absent: respiratory distress, wheezes Cardiovascular Exam: Present: regular rate, normal rhythm, normal heart sounds GI/Abdominal exam: Present: soft, normal bowel sounds. Absent: distended, t enderness Neurological exam: Present: alert Course Vital Signs 11/27/20 11/27/20 00:32 01:15 Temperature 97.6 F Pulse Rate 89 Respiratory 18 19 Rate Blood Pressure 141/97 O2 Sat by Pulse 100 Oximetry EKG Findings - EKG Comments: EKG Findings:: NSR, vent rate 78, pr int 144, qtc 435 Medical Decision Making - Medical Decision Making Vitals are stable. Patient presents for some mild shortness of breath that started today. Patient does have left-sided rib pain. This has been ongoing for weeks. Patient does have some tenderness to when palpated and pain is reproducible. EKG was obtained, nonischemic. CBC showed anemia with a hemoglobin of 9.3 however this does appear to be chronic for patient. CMP is unremarkable. Troponin is negative. D-dimer is within normal limits. Urinalysis does not show any evidence of infection. Chest x-ray shows a normal chest. At this time given patient's symptoms are atypical in nature and reproducible she is stable for outpatient management. If she has any worsening symptoms or shortness of breath she will return to the emergency room. Otherwise she will follow up closely with primary care. - Lab Data Result diagrams: 11/27/20 01:28 11/27/20 01:28 Lab Results 11/27/20 11/27/20 11/27/20 Range/Units 01:28 01:28 01:28 WBC 3.3 L (3.8-10.6) k/uL RBC 3.28 L (3.80-5.40) m/uL Hgb 9.3 L D (11.4-16.0) gm/dL Hct 29.7 L (34.0-46.0) % MCV 90.6 (80.0-100.0) fL MCH 28.2 (25.0-35.0) pg MCHC 31.1 (31.0-37.0) g/dL RDW 15.8 H (11.5-15.5) % Plt Count 268 (150-450) k/uL MPV 7.6 Neutrophils % (Manual) 62 % Band Neuts % (Manual) 5 % Lymphocytes % (Manual) 18 % Monocytes % (Manual) 7 % Eosinophils % (Manual) 8 % Neutrophils # (Manual) 2.20 (1.3-7.7) k/uL Lymphocytes # (Manual) 0.59 L (1.0-4.8) k/uL Monocytes # (Manual) 0.23 (0-1.0) k/uL Eosinophils # (Manual) 0.26 (0-0.7) k/uL Nucleated RBCs 0 (0-0) /100 WBC Manual Slide Review Performed Hypochromasia Slight PT 9.7 (9.0-12.0) sec INR 0.9 (<1.2) APTT 23.3 (22.0-30.0) sec D-Dimer 0.52 (<0.60) mg/L FEU Sodium 139 (137-145) mmol/L Potassium 4.0 (3.5-5.1) mmol/L Chloride 103 (98-107) mmol/L Carbon Dioxide 28 (22-30) mmol/L Anion Gap 8 mmol/L BUN 17 (7-17) mg/dL Creatinine 0.82 (0.52-1.04) mg/dL Est GFR (CKD-EPI)AfAm >90 (>60 ml/min/1.73 sqM) Est GFR (CKD-EPI)NonAf >90 (>60 ml/min/1.73 sqM) Glucose 89 (74-99) mg/dL Calcium 9.4 (8.4-10.2) mg/dL Total Bilirubin 0.4 (0.2-1.3) mg/dL AST 37 H (14-36) U/L ALT 16 (4-34) U/L Alkaline Phosphatase 97 (38-126) U/L Troponin I (0.000-0.034) ng/mL Total Protein 7.1 (6.3-8.2) g/dL Albumin 4.2 (3.5-5.0) g/dL HCG, Qual Not Detected Urine Color Urine Appearance (Clear) Urine pH (5.0-8.0) Ur Specific [place] (1.001-1.035) Urine Protein (Negative) Urine Glucose (UA) (Negative) Urine Ketones (Negative) Urine Blood (Negative) Urine Nitrite (Negative) Urine Bilirubin (Negative) Urine Urobilinogen (<2.0) mg/dL Ur Leukocyte Esterase (Negative) Urine WBC (0-5) /hpf Ur Squamous Epith Cells (0-4) /hpf Coronavirus (PCR) (Not Detectd) 11/27/20 11/27/20 11/27/20 Range/Units 01:28 01:28 02:17 WBC (3.8-10.6) k/uL RBC (3.80-5.40) m/uL Hgb (11.4-16.0) gm/dL Hct (34.0-46.0) % MCV (80.0-100.0) fL MCH (25.0-35.0) pg MCHC (31.0-37.0) g/dL RDW (11.5-15.5) % Plt Count (150-450) k/uL MPV Neutrophils % (Manual) % Band Neuts % (Manual) % Lymphocytes % (Manual) % Monocytes % (Manual) % Eosinophils % (Manual) % Neutrophils # (Manual) (1.3-7.7) k/uL Lymphocytes # (Manual) (1.0-4.8) k/uL Monocytes # (Manual) (0-1.0) k/uL Eosinophils # (Manual) (0-0.7) k/uL Nucleated RBCs (0-0) /100 WBC Manual Slide Review Hypochromasia PT (9.0-12.0) sec INR (<1.2) APTT (22.0-30.0) sec D-Dimer (<0.60) mg/L FEU Sodium (137-145) mmol/L Potassium (3.5-5.1) mmol/L Chloride (98-107) mmol/L Carbon Dioxide (22-30) mmol/L Anion Gap mmol/L BUN (7-17) mg/dL Creatinine (0.52-1.04) mg/dL Est GFR (CKD-EPI)AfAm (>60 ml/min/1.73 sqM) Est GFR (CKD-EPI)NonAf (>60 ml/min/1.73 sqM) Glucose (74-99) mg/dL Calcium (8.4-10.2) mg/dL Total Bilirubin (0.2-1.3) mg/dL AST (14-36) U/L ALT (4-34) U/L Alkaline Phosphatase (38-126) U/L Troponin I <0.012 (0.000-0.034) ng/mL Total Protein (6.3-8.2) g/dL Albumin (3.5-5.0) g/dL HCG, Qual Urine Color Light Yellow Urine Appearance Clear (Clear) Urine pH 6.5 (5.0-8.0) Ur Specific [place] 1.015 (1.001-1.035) Urine Protein Negative (Negative) Urine Glucose (UA) Negative (Negative) Urine Ketones Negative (Negative) Urine Blood Negative (Negative) Urine Nitrite Negative (Negative) Urine Bilirubin Negative (Negative) Urine Urobilinogen <2.0 (<2.0) mg/dL Ur Leukocyte Esterase Trace H (Negative) Urine WBC 3 (0-5) /hpf Ur Squamous Epith Cells 4 (0-4) /hpf Coronavirus (PCR) Not Detected (Not Detectd) Disposition Clinical Impression: Shortness of breath, Atypical chest pain Disposition: HOME SELF-CARE Condition: Good Instructions (If sedation given, give patient instructions): Shortness of Breath (ED) Additional Instructions: Please take motrin and tylenol for pain. Follow up with primary care in 1-2 days. Return to the ER for any worsening symptoms. Is patient prescribed a controlled substance at d/c from ED?: No Referrals: Dayo Vidal DO [Primary Care Provider] - 1-2 days Time of Disposition: 03:55
[2020-11-27 02:38] LABS: Appearance,Urine Clear (Clear); Bilirubin,Urine Negative (Negative); Blood,Urine Negative (Negative); Color,Urine Light Yellow; Glucose,Urine (UA) Negative (Negative); Ketones,Urine Negative (Negative); Leukocyte Esterase,Urine Trace (Negative); Nitrite,Urine Negative (Negative); PH, Urine 6.5 (5.0-8.0); Protein,Urine Negative (Negative); Specific Gravity,Urine 1.015 (1.001-1.035); Squamous Epithelial Cell,Urine 4 /hpf (0-4); Urobilinogen,Urine <2.0 mg/dL (<2.0); WBC,Urine 3 /hpf (0-5)
[2020-11-27 02:52] LABS: HCT 29.7 % (34.0-46.0); Hypochromasia Slight; MCH 28.2 pg (25.0-35.0); MCHC 31.1 g/dL (31.0-37.0); MCV 90.6 fL (80.0-100.0); Mean Platelet Volume 7.6; Platelet Count 268 k/uL (150-450); RBC 3.28 m/uL (3.80-5.40); RDW 15.8 % (11.5-15.5); WBC 3.3 k/uL (3.8-10.6)
[2020-11-27 02:53] LABS: HGB 9.3 gm/dL (11.4-16.0)
[2020-11-27 02:54] LABS: INR 0.9 (<1.2); Partial Thromboplastin Time 23.3 sec (22.0-30.0); Prothrombin Time 9.7 sec (9.0-12.0)
[2020-11-27 03:08] LABS: ALT 16 U/L (4-34); African American GFR (CKD) >90 (>60 ml/min/1.73 sqM); Albumin 4.2 g/dL (3.5-5.0); Anion Gap 8 mmol/L; Blood Urea Nitrogen 17 mg/dL (7-17); Calcium 9.4 mg/dL (8.4-10.2); Carbon Dioxide 28 mmol/L (22-30); Chloride 103 mmol/L (98-107); Glucose 89 mg/dL (74-99); Non-African American GFR(CKD) >90 (>60 ml/min/1.73 sqM); Sodium 139 mmol/L (137-145); Total Bilirubin 0.4 mg/dL (0.2-1.3); Total Protein 7.1 g/dL (6.3-8.2)
[2020-11-27] MEDS ORDERED: HYDROmorphone 0.5 MG/0.5 ML SYRINGE IVP STA (03:10)
[2020-11-27 03:19] LABS: Band Neutrophils % 5 %; Eosinophils # (M) 0.26 k/uL (0-0.7); Lymphocytes # (M) 0.59 k/uL (1.0-4.8); Monocytes # (M) 0.23 k/uL (0-1.0); Neutrophils % (M) 62 %; Nucleated Red Blood Cells 0 /100 WBC (0-0); Total Cells Counted 100
[2020-11-27 03:28] LABS: HCG,Qualitative Serum Not Detected
[2020-11-27 03:39] LABS: AST 37 U/L (14-36); Alkaline Phosphatase 97 U/L (38-126)
[2020-11-27 04:22] VITALS: BP 126/98; RESP 98
== END 2020-11-27 04:51 | disposition home or self-care (01) ==
LOC: EC 00:30
DX: R06.02 Shortness of breath (principal); R07.89 Other chest pain; I50.9 Heart failure, unspecified; M79.7 Fibromyalgia; F32.9 Major depressive disorder, single episode, unspecified; F41.9 Anxiety disorder, unspecified; F12.90 Cannabis use, unspecified, uncomplicated; F17.200 Nicotine dependence, unspecified, uncomplicated; Z20.822 Contact with and (suspected) exposure to COVID-19
CPT/HCPCS: 36415; 93005; 85379; 83880; 80053; 84484; 85025; 85610; 85730; 81001; 84703; 87635; 71046; 99285; 96374; J1170

== ENCOUNTER 2021-10-20 14:08 | Emergency (ER) | payer OTHER ==
[2021-10-20 14:43] VITALS: PULSE 102; RESP 16; TEMP 98.7
[2021-10-20 17:38] LABS: Anisocytosis Slight; Basophils # (A) 0.1 k/uL (0-0.2); Basophils % (A) 1 %; Eosinophils # (A) 0.1 k/uL (0-0.7); Eosinophils % (A) 1 %; HGB 11.8 gm/dL (11.4-16.0); Hypochromasia Slight; Lymphocytes # (A) 0.5 k/uL (1.0-4.8); Lymphocytes % (A) 7 %; MCH 26.3 pg (25.0-35.0); MCV 84.8 fL (80.0-100.0); Mean Platelet Volume 6.6; Monocytes # (A) 0.2 k/uL (0-1.0); Monocytes % (A) 3 %; Neutrophils % (A) 87 %; Platelet Count 385 k/uL (150-450); RBC 4.48 m/uL (3.80-5.40); RDW 17.7 % (11.5-15.5); WBC 6.9 k/uL (3.8-10.6)
--- NOTE | 2021-10-20 17:38 | XR ---
EXAMINATION TYPE: XR chest 2V DATE OF EXAM: 10/20/2021 COMPARISON: 11/27/2020 HISTORY: Difficulty breathing TECHNIQUE: FINDINGS: Heart is normal. There is no heart failure. There are no hilar masses. There is some increa sed density at the left lung base behind the heart. The lung manzo are clear. There are no hilar mas ses. Bony thorax is intact. IMPRESSION: There is evidence for small infiltrate at the left lung base behind the heart which is a change compared to the old exam. Normal heart.
[2021-10-20 17:43] LABS: Albumin 4.8 g/dL (3.5-5.0); Calcium 9.8 mg/dL (8.4-10.2); Potassium 3.6 mmol/L (3.5-5.1); Total Bilirubin 0.5 mg/dL (0.2-1.3)
[2021-10-20] MEDS ORDERED: SODIUM CHLORIDE 0.9% 1,000 ML IV STA (17:45)
[2021-10-20] MEDS ORDERED: AZITHROMYCIN 500 MG TAB PO STA (18:08)
[2021-10-20 18:46] VITALS: BP 121/98
--- NOTE | 2021-10-20 19:03 | ED ---
General Adult HPI - General Chief complaint: Upper Respiratory Infection Stated complaint: ENRRIQUE Time Seen by Provider: 10/20/21 16:28 Source: patient Mode of arrival: ambulatory Limitations: no limitations - History of Present Illness Initial comments: Patient is a 36-year-old female who presents to the emergency department with a chief complaint of shortness of breath. Patient states symptoms started this morning. Patient states she feels chest pain when taking a deep breath. Pain is located on the right side of her chest without radiation. Denies pain at rest. Also reports cough with green sputum and subjective fever. States she took a COVID-19 testing home which was negative. Denies palpitations, lightheadedness, dizziness, nausea, vomiting, sweating. 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 Also reports history of bilateral pneumonia on ventilator support. - Related Data Home Medications Medication Instructions Recorded Confirmed Gabapentin [Neurontin] 400 mg PO TID 06/27/18 02/21/21 Albuterol Sulfate [Proair Hfa] 2 puff INHALATION RT-Q6H PRN 10/16/20 02/21/21 traMADol HCL 50 mg PO Q4H PRN 10/16/20 02/21/21 Levothyroxine Sodium [Synthroid] 75 mcg PO QAM 02/21/21 02/21/21 New Inhaler 2 puff INHALATION QID 02/21/21 02/21/21 Previous Rx's Medication Instructions Recorded Azithromycin 500 mg PO DAILY 7 Days #90 ml 10/20/21 Allergies Allergy/AdvReac Type Severity Reaction Status Date / Time amoxicillin trihydrate AdvReac Severe Nausea & Verified 10/20/21 14:41 [From Augmentin] Vomiting & Diarrhea codeine AdvReac Severe Dyspnea Verified 10/20/21 14:41 potassium clavulanate AdvReac Severe Nausea & Verified 10/20/21 14:41 [From Augmentin] Vomiting & Diarrhea ciprofloxacin AdvReac Dyspnea Verified 10/20/21 14:41 sumatriptan [From Imitrex] AdvReac Dyspnea Verified 10/20/21 14:41 Review of Systems ROS Statement: Those systems with pertinent positive or pertinent negative responses have been documented in the HPI. ROS Other: All systems not noted in ROS Statement are negative. 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 neuropathy bilateral feet,received anthony cortisone injections to feet on 02-20-21. History of Any Multi-Drug Resistant Organisms: MRSA Date of last positivie culture/infection: 2008 MDRO Source:: left calf Past Surgical History: Cholecystectomy, Orthopedic Surgery Additional Past Surgical History / Comment(s): Multiple oral surgeries, bronchoscopy, thyroidectomy, myringotomy/tubes bilateral ears, LEFT WRIST SURGERY, g-tube inserted and removed april 21, 2017 Past Anesthesia/Blood Transfusion Reactions: No Reported Reaction Additional Past Anesthesia/Blood Transfusion Reaction / Comment(s): Uses child size ET tube and endoscope Past Psychological History: Anxiety, Depression Smoking Status: Current some day smoker - Past Family History Father Family Medical History: Cancer, Hyperlipidemia, Hypertension, Thyroid Disorder Additional Family Medical History / Comment(s): anxiety depression Mother Family Medical History: Diabetes Mellitus, Thyroid Disorder Brother(s) Family Medical History: No Reported History Sister(s) Family Medical History: No Reported History Additional Family Medical History / Comment(s): PCOS Daughter(s) Family Medical History: No Reported History General Exam Limitations: no limitations General appearance: alert, in no apparent distress Head exam: Present: atraumatic, normocephalic, normal inspection Eye exam: Present: normal appearance, PERRL, EOMI. Absent: scleral icterus, conjunctival injection, periorbital swelling Neck exam: Present: normal inspection. Absent: tenderness, meningismus, lymphadenopathy Respiratory exam: Present: normal lung sounds bilaterally. Absent: respiratory distress, wheezes, rales, rhonchi, stridor, chest wall tenderness Cardiovascular Exam: Present: regular rate, normal rhythm, normal heart sounds. Absent: systolic murmur, diastolic murmur, rubs, gallop, clicks GI/Abdominal exam: Present: soft, normal bowel sounds. Absent: distended, tenderness, guarding, rebound, rigid Neurological exam: Present: alert, oriented X3, CN II-XII intact Psychiatric exam: Present: normal affect, normal mood Skin exam: Present: warm, dry, intact, normal color. Absent: rash Course Vital Signs 10/20/21 10/20/21 14:41 18:45 Temperature 98.7 F Pulse Rate 102 H Respiratory 16 Rate Blood Pressure 94/70 121/98 O2 Sat by Pulse 98 Oximetry EKG Findings - EKG Comments: EKG Findings:: EKG taken 18:48. Sinus rhythm, no ST segment abnormalities. Moderate T-wave abnormalities in V3 and V4 which are appreciated on previous EKG. Rate 75. MT interval 155. QRS duration 84. QTc 433 Medical Decision Making - Medical Decision Making This is a 36-year-old female presents with pleuritic chest pain and shortness of breath. Patient well-appearing and in no apparent distress. She is not hypoxic or tachycardic. She is afebrile. EKG shows normal sinus rhythm with moderate T-wave abnormality which are old. Laboratories studies obtained. There is no leukocytosis. D-dimer and troponin are within normal limits. COVID-19 and influenza are not detected. Chest x-ray shows evidence for small infiltrate at the left lung base behind the heart. Results discussed with patient. Patient has pleuritic chest pain on the right side which may be due to coughing. Patient will be discharged with azithromycin for pneumonia. First dose given in the emergency department. Return parameters discussed. Patient follow-up with primary care provider. Jason Weinberg is my attending. - Lab Data Result diagrams: 10/20/21 17:00 10/20/21 17:00 Lab Results 10/20/21 10/20/21 10/20/21 Range/Units 16:49 16:49 17:00 WBC 6.9 (3.8-10.6) k/uL RBC 4.48 (3.80-5.40) m/uL Hgb 11.8 (11.4-16.0) gm/dL Hct 38.0 (34.0-46.0) % MCV 84.8 (80.0-100.0) fL MCH 26.3 (25.0-35.0) pg MCHC 31.0 (31.0-37.0) g/dL RDW 17.7 H (11.5-15.5) % Plt Count 385 (150-450) k/uL MPV 6.6 Neutrophils % 87 % Lymphocytes % 7 % Monocytes % 3 % Eosinophils % 1 % Basophils % 1 % Neutrophils # 6.0 (1.3-7.7) k/uL Lymphocytes # 0.5 L (1.0-4.8) k/uL Monocytes # 0.2 (0-1.0) k/uL Eosinophils # 0.1 (0-0.7) k/uL Basophils # 0.1 (0-0.2) k/uL Hypochromasia Slight Anisocytosis Slight D-Dimer (<0.60) mg/L FEU Sodium (137-145) mmol/L Potassium (3.5-5.1) mmol/L Chloride (98-107) mmol/L Carbon Dioxide (22-30) mmol/L Anion Gap mmol/L BUN (7-17) mg/dL Creatinine (0.52-1.04) mg/dL Est GFR (CKD-EPI)AfAm (>60 ml/min/1.73 sqM) Est GFR (CKD-EPI)NonAf (>60 ml/min/1.73 sqM) Glucose (74-99) mg/dL Calcium (8.4-10.2) mg/dL Total Bilirubin (0.2-1.3) mg/dL AST (14-36) U/L ALT (4-34) U/L Alkaline Phosphatase (38-126) U/L Troponin I (0.000-0.034) ng/mL Total Protein (6.3-8.2) g/dL Albumin (3.5-5.0) g/dL Coronavirus (PCR) Not Detected (Not Detectd) Influenza Type A RNA Not Detected (Not Detectd) Influenza Type B (PCR) Not Detected (Not Detectd) 10/20/21 10/20/21 10/20/21 Range/Units 17:00 17:00 17:00 WBC (3.8-10.6) k/uL RBC (3.80-5.40) m/uL Hgb (11.4-16.0) gm/dL Hct (34.0-46.0) % MCV (80.0-100.0) fL MCH (25.0-35.0) pg MCHC (31.0-37.0) g/dL RDW (11.5-15.5) % Plt Count (150-450) k/uL MPV Neutrophils % % Lymphocytes % % Monocytes % % Eosinophils % % Basophils % % Neutrophils # (1.3-7.7) k/uL Lymphocytes # (1.0-4.8) k/uL Monocytes # (0-1.0) k/uL Eosinophils # (0-0.7) k/uL Basophils # (0-0.2) k/uL Hypochromasia Anisocytosis D-Dimer 0.19 (<0.60) mg/L FEU Sodium 138 (137-145) mmol/L Potassium 3.6 (3.5-5.1) mmol/L Chloride 95 L (98-107) mmol/L Carbon Dioxide 29 (22-30) mmol/L Anion Gap 14 mmol/L BUN 18 H (7-17) mg/dL Creatinine 1.35 H (0.52-1.04) mg/dL Est GFR (CKD-EPI)AfAm 59 (>60 ml/min/1.73 sqM) Est GFR (CKD-EPI)NonAf 52 (>60 ml/min/1.73 sqM) Glucose 78 (74-99) mg/dL Calcium 9.8 (8.4-10.2) mg/dL Total Bilirubin 0.5 (0.2-1.3) mg/dL AST 32 (14-36) U/L ALT 12 (4-34) U/L Alkaline Phosphatase 108 (38-126) U/L Troponin I <0.012 (0.000-0.034) ng/mL Total Protein 8.0 (6.3-8.2) g/dL Albumin 4.8 (3.5-5.0) g/dL Coronavirus (PCR) (Not Detectd) Influenza Type A RNA (Not Detectd) Influenza Type B (PCR) (Not Detectd) Disposition Clinical Impression: Pneumonia, Shortness of breath, Fever Disposition: HOME SELF-CARE Condition: Good Instructions (If sedation given, give patient instructions): Bacterial Pneumonia (ED) Additional Instructions: Take antibiotic as directed. Follow-up with primary care provider in one to 2 days. Return to the emergency department x-rays new, concerning, or worsening symptoms. Prescriptions: Azithromycin 500 mg PO DAILY 7 Days #90 ml Is patient prescribed a controlled substance at d/c from ED?: No Referrals: Dayo Vidal DO [Primary Care Provider] - 1-2 days Time of Disposition: 19:03
== END 2021-10-20 19:15 | disposition home or self-care (01) ==
LOC: EC 14:08
DX: J18.9 Pneumonia, unspecified organism (principal); R50.9 Fever, unspecified; E07.9 Disorder of thyroid, unspecified; Z79.899 Other long term (current) drug therapy; F17.200 Nicotine dependence, unspecified, uncomplicated; Z20.822 Contact with and (suspected) exposure to COVID-19; Z88.0 Allergy status to penicillin; Z88.1 Allergy status to other antibiotic agents; Z88.6 Allergy status to analgesic agent; Z88.8 Allergy status to other drugs, medicaments and biological substances; Z88.2 Allergy status to sulfonamides
CPT/HCPCS: 36415; 71046; 80053; 84484; 85025; 85379; 87502; 87635; 93005; 99285

== ENCOUNTER 2022-07-18 23:42 | Emergency (ER) | payer OTHER ==
[2022-07-18 23:56] VITALS: RESP 18; TEMP 98.7
[2022-07-19 00:39] LABS: Anisocytosis Slight; Basophils % (A) 0 %; Eosinophils # (A) 0.2 k/uL (0-0.7); Eosinophils % (A) 4 %; HCT 33.2 % (34.0-46.0); HGB 10.8 gm/dL (11.4-16.0); Hypochromasia Slight; Lymphocytes # (A) 0.7 k/uL (1.0-4.8); Lymphocytes % (A) 19 %; MCH 28.1 pg (25.0-35.0); MCHC 32.7 g/dL (31.0-37.0); MCV 85.8 fL (80.0-100.0); Monocytes # (A) 0.2 k/uL (0-1.0); Monocytes % (A) 4 %; Neutrophils # (A) 2.7 k/uL (1.3-7.7); Neutrophils % (A) 70 %; Platelet Count 271 k/uL (150-450); RBC 3.86 m/uL (3.80-5.40); RDW 17.3 % (11.5-15.5); WBC 3.8 k/uL (3.8-10.6)
[2022-07-19 00:54] LABS: Chloride 101 mmol/L (98-107)
[2022-07-19 00:57] LABS: ALT 24 U/L (4-34); AST 37 U/L (14-36); African American GFR (CKD) >90 (>60 ml/min/1.73 sqM); Albumin 4.8 g/dL (3.5-5.0); Blood Urea Nitrogen 13 mg/dL (7-17); Calcium 9.8 mg/dL (8.4-10.2); Carbon Dioxide 28 mmol/L (22-30); Glucose 84 mg/dL (74-99); Non-African American GFR(CKD) 87 (>60 ml/min/1.73 sqM); Total Bilirubin 0.3 mg/dL (0.2-1.3); Total Protein 7.9 g/dL (6.3-8.2)
[2022-07-19 00:58] LABS: Alkaline Phosphatase 92 U/L (38-126); Anion Gap 12 mmol/L; Magnesium 2.2 mg/dL (1.6-2.3); Potassium 3.6 mmol/L (3.5-5.1); Sodium 141 mmol/L (137-145)
[2022-07-19 01:06] LABS: INR 0.9 (<1.2); Partial Thromboplastin Time 30.6 sec (22.0-30.0); Prothrombin Time 9.8 sec (9.0-12.0)
[2022-07-19 01:49] LABS: Appearance,Urine Clear (Clear); Bacteria,Urine Rare /hpf; Bilirubin,Urine Negative (Negative); Blood,Urine Negative (Negative); Budding Yeast,Urine Rare /hpf; Color,Urine Light Yellow; Glucose,Urine (UA) Negative (Negative); Ketones,Urine Negative (Negative); Leukocyte Esterase,Urine Small (Negative); Mucus,Urine Rare /hpf; Nitrite,Urine Negative (Negative); PH, Urine 6.5 (5.0-8.0); Protein,Urine Negative (Negative); RBC,Urine <1 /hpf (0-5); Specific Gravity,Urine 1.019 (1.001-1.035); Squamous Epithelial Cell,Urine 2 /hpf (0-4); Urobilinogen,Urine <2.0 mg/dL (<2.0); WBC,Urine 7 /hpf (0-5)
--- NOTE | 2022-07-19 01:59 | ED ---
Chest Pain HPI - General Chief Complaint: Chest Pain Stated Complaint: Chest pain, Possible Time Seen by Provider: 07/19/22 00:01 Source: patient Mode of arrival: ambulatory Limitations: no limitations - History of Present Illness Initial Comments: Patient is a 37-year-old female presenting with chief complaint of chest pain. Patient states that she has had a mild cough and congestion ongoing for the last 3 days. Pain is worse with coughing. Patient also is concerned as she had a positive test 2 days ago. Patient has had a copper IUD in place for the last 7 years. No pelvic pain or vaginal bleeding or discharge. No dysuria, hematuria, nausea, vomiting, diarrhea. No shortness of breath or palpitations. - Related Data Home Medications Medication Instructions Recorded Confirmed Gabapentin [Neurontin] 400 mg PO TID 06/27/18 02/21/21 Albuterol Sulfate [Proair Hfa] 2 puff INHALATION RT-Q6H PRN 10/16/20 02/21/21 traMADol HCL 50 mg PO Q4H PRN 10/16/20 02/21/21 Levothyroxine Sodium [Synthroid] 75 mcg PO QAM 02/21/21 02/21/21 New Inhaler 2 puff INHALATION QID 02/21/21 02/21/21 Previous Rx's Medication Instructions Recorded Azithromycin 500 mg PO DAILY 7 Days #90 ml 10/20/21 Azithromycin [Zithromax] 250 mg PO DAILY #4 tab 03/16/22 Cefuroxime [Ceftin] 500 mg PO BID 5 Days #20 tab 03/16/22 Ofloxacin 0.3% Otic Soln [Floxin 10 drops LEFT EAR BID 10 Days #10 03/16/22 0.3% Otic Soln] ml predniSONE [Deltasone] 20 mg PO BID #10 tab 03/16/22 Allergies Allergy/AdvReac Type Severity Reaction Status Date / Time amoxicillin trihydrate AdvReac Severe Nausea & Verified 07/18/22 23:56 [From Augmentin] Vomiting & Diarrhea codeine AdvReac Severe Dyspnea Verified 07/18/22 23:56 potassium clavulanate AdvReac Severe Nausea & Verified 07/18/22 23:56 [From Augmentin] Vomiting & Diarrhea ciprofloxacin AdvReac Dyspnea Verified 07/18/22 23:56 sumatriptan [From Imitrex] AdvReac Dyspnea Verified 07/18/22 23:56 Review of Systems ROS Statement: Those systems with pertinent positive or pertinent negative responses have been documented in the HPI. ROS Other: All systems not noted in ROS Statement are negative. EKG Findings - EKG Comments: EKG Findings:: Sinus rhythm ventricular rate 73. MT interval 174. QRS 81. QT 385. QTc 411. No ischemic changes. 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 Left lung diaphragm paralyzed. On vent and in coma with pneumonia in [id number]. neuropathy bilateral feet,received anthony cortisone injections to feet on 02-20-21. History of Any Multi-Drug Resistant Organisms: MRSA Date of last positivie culture/infection: 2008 MDRO Source:: left calf Past Surgical History: Cholecystectomy, Orthopedic Surgery Additional Past Surgical History / Comment(s): Multiple oral surgeries, bronchoscopy, thyroidectomy, myringotomy/tubes bilateral ears, LEFT WRIST SURGERY, g-tube inserted and removed april 21, 2017 Past Anesthesia/Blood Transfusion Reactions: No Reported Reaction Additional Past Anesthesia/Blood Transfusion Reaction / Comment(s): Uses child size ET tube and endoscope Past Psychological History: Anxiety, Depression Smoking Status: Current some day smoker Past Alcohol Use History: None Reported Past Drug Use History: Marijuana - Past Family History Father Family Medical History: Cancer, Hyperlipidemia, Hypertension, Thyroid Disorder Additional Family Medical History / Comment(s): anxiety depression Mother Family Medical History: Diabetes Mellitus, Thyroid Disorder Brother(s) Family Medical History: No Reported History Sister(s) Family Medical History: No Reported History Additional Family Medical History / Comment(s): PCOS Daughter(s) Family Medical History: No Reported History General Exam Limitations: no limitations General appearance: alert, in no apparent distress Head exam: Present: atraumatic, normocephalic, normal inspection Eye exam: Present: normal appearance, EOMI. Absent: scleral icterus, periorbital swelling Neck exam: Present: normal inspection, full ROM Respiratory exam: Present: normal lung sounds bilaterally. Absent: respiratory distress, wheezes, rales, rhonchi, stridor Cardiovascular Exam: Present: regular rate, normal rhythm, normal heart sounds. Absent: systolic murmur, diastolic murmur, rubs, gallop, clicks Neurological exam: Present: alert, oriented X3, CN II-XII intact Psychiatric exam: Present: normal affect, normal mood Skin exam: Present: warm, dry, intact, normal color. Absent: rash Course Vital Signs 07/18/22 07/19/22 23:51 02:20 Temperature 98.7 F Pulse Rate 70 63 Respiratory 18 18 Rate Blood Pressure 117/83 108/76 O2 Sat by Pulse 99 98 Oximetry Chest Pain MDM - MDM Was pt. sent in by a medical professional or institution (KRYSTAL Barragan, HAM CLERK, urgent care, hospital, or longterm...) When possible be specific @ -No Did you speak to anyone other than the patient for history (EMS, parent, family, police, friend...)? What history was obtained from this source @ -No Did you review nursing and triage notes (agree or disagree)? Why? @ -I reviewed and agree with nursing and triage notes Were old charts reviewed (outside hosp., previous admission, EMS record, old EKG, old radiological studies, urgent care reports/EKG's, longterm records)? Report findings @ -No old charts were reviewed Differential Diagnosis (chest pain, altered mental status, abdominal pain women, abdominal pain men, vaginal bleeding, weakness, fever, dyspnea, syncope, headache, dizziness, GI bleed, back pain, seizure, CVA, palpatations, mental health, musculoskeletal)? @ -MDM Differential Chest Pain: Stable Angina, Unstable Angina, STEMI, NSTEMI Aortic Dissection, Pneumothorax, Musculoskeletal, Esophageal Spasm GERD, Cholecystitis, Pancreatitis, Zoster This is not meant to be an all-inclusive list. EKG interpreted by me (3pts min.). @ -As above X-rays interpreted by me (1pt min.). @ -Chest x-ray shows no acute process CT interpreted by me (1pt min.). @ -None done U/S interpreted by me (1pt. min.). @ -None done What testing was considered but not performed or refused? (CT, X-rays, U/S, labs)? Why? @ -None What meds were considered but not given or refused? Why? @ -None Did you discuss the management of the patient with other professionals (professionals i.e. , PA, HAM CLERK, lab, RT, psych nurse, social service manager, inspector and sorter, t eacher, commissioned defence force officer, case management assistant)? Give summary @ -No Was smoking cessation discussed for >3mins.? @ -No Was critical care preformed (if so, how long)? @ -No Were there social determinants of health that impacted care today? How? (Homelessness, low income, unemployed, alcoholism, drug addiction, transportation, low edu. Level, literacy, decrease access to med. care, detention, rehab)? @ -No Was there de-escalation of care discussed even if they declined (Discuss DNR or withdrawal of care, Hospice)? DNR status @ -No What co-morbidities impacted this encounter? (DM, HTN, Smoking, COPD, CAD, Cancer, CVA, ARF, Chemo, Hep., AIDS, mental health diagnosis, sleep apnea, morbid obesity)? @ -None Was patient admitted / discharged? Hospital course, mention meds given and ro [place], prescriptions, significant lab abnormalities, going to OR and other pertinent info. @ -37-year-old female presenting with chief complaint of chest pain accompanied by cough and congestion. She also reports having a positive at home test despite having a copper IUD. No pelvic pain or vaginal bleeding. Physical examination is unremarkable. Negative urine hCG. Urine shows small leukocytes, patient is not having any urinary symptoms we will send for culture and await results. Remainder of lab work shows no acute process. She is negative for influenza, RSV, and Covid. EKG shows no acute process. Chest x-rays negative for acute process. Patient is educated on today's findings. She is educated on supportive management of symptoms at home. Follow-up with PCP. Report back to ER with any new or worsening symptoms. Discussed return parameters and answered all questions. Patient conveyed verbal understanding and agreed to the plan. I discussed this case in detail with my attending Dr. Faust Undiagnosed new problem with uncertain prognosis? @ -No Drug Therapy requiring intensive monitoring for toxicity (Heparin, Nitro, Insulin, Cardizem)? @ -No Were any procedures done? @ -No Diagnosis/symptom? @ -Atypical chest pain Acute, or Chronic, or Acute on Chronic? @ -Acute Uncomplicated (without systemic symptoms) or Complicated (systemic symptoms)? @ -Uncomplicated Side effects of treatment? @ -No Exacerbation, Progression, or Severe Exacerbation? @ -No Poses a threat to life or bodily function? How? (Chest pain, [place], [place], pneumonia, PE, COPD, DKA, ARF, appy, cholecystitis, CVA, Diverticulitis, Homicidal, Suicidal, threat to staff... and all critical care pts) @ -No Disposition Clinical Impression: Atypical chest pain Disposition: HOME SELF-CARE Condition: Good Instructions (If sedation given, give patient instructions): Chest Pain (ED) Additional Instructions: Follow-up with PCP. Report back to ER with any new or worsening symptoms. Is patient prescribed a controlled substance at d/c from ED?: No Referrals: Dayo Vidal DO [Primary Care Provider] - 1-2 days Time of Disposition: 01:58
[2022-07-19 02:27] VITALS: BP 108/76; PULSE 63
--- NOTE | 2022-07-19 04:44 | XR ---
EXAMINATION TYPE: XR chest 1V DATE OF EXAM: 07/19/2022 COMPARISON: Chest x-ray and CT March 16, 2022 HISTORY: Chest pain. TECHNIQUE: Single frontal view of the chest is obtained. FINDINGS: There is chronic left basilar opacity corresponding to prominent pericardial fat pad is sl ightly elevated left hemidiaphragm. There is no new suspicious focal air space opacity, pleural effus ion, or pneumothorax seen. The cardiac silhouette size is stable and within normal limits. The oss eous structures are intact. Cholecystectomy clips are noted. IMPRESSION: No acute process. No significant change from most recent studies.
== END 2022-07-19 02:27 | disposition home or self-care (01) ==
LOC: EC 23:42
DX: R07.89 Other chest pain (principal); I50.9 Heart failure, unspecified; E07.9 Disorder of thyroid, unspecified; F41.9 Anxiety disorder, unspecified; F32.A Depression, unspecified; F17.200 Nicotine dependence, unspecified, uncomplicated; F12.90 Cannabis use, unspecified, uncomplicated; Z88.0 Allergy status to penicillin; Z88.1 Allergy status to other antibiotic agents; Z88.5 Allergy status to narcotic agent; Z88.8 Allergy status to other drugs, medicaments and biological substances; Z79.890 Hormone replacement therapy; Z79.899 Other long term (current) drug therapy; Z20.822 Contact with and (suspected) exposure to COVID-19
CPT/HCPCS: 36415; 71045; 80053; 81001; 81025; 83735; 85025; 85610; 85730; 87636; 93005; 99285

== ENCOUNTER → 2022-11-27 | Outpatient (CLI) | payer OTHER ==
--- NOTE | 2022-11-27 08:53 | US ---
EXAMINATION TYPE: US abdomen complete DATE OF EXAM: 11/27/2022 COMPARISON: CT 2019 CLINICAL INDICATION: Female, 37 years old with history of R10.9 UNSPECIFIED ABDOMINAL PAIN; TECHNIQUE: Multiple sonographic images of the abdomen are obtained. 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 The intrahepatic portion of the IVC and proximal abdominal aorta are within normal limits. There is no evidence of cholelithiasis. Common bile duct is unremarkable. The visu alized portions of the pancreas are homogenous. The spleen is unremarkable. Kidneys are symmetric a nd free of hydronephrosis. No renal lesions are seen. IMPRESSION: Suspect small hemangioma left hepatic lobe.
== END | disposition home or self-care (01) ==
LOC: RADUSWWP 08:07
PROVIDERS: ATTEND Family Medicine
DX: R10.9 Unspecified abdominal pain (principal)
CPT/HCPCS: 76700

== ENCOUNTER → 2023-01-14 | Outpatient (CLI) | payer OTHER ==
--- NOTE | 2023-01-14 10:13 | CT ---
EXAMINATION TYPE: CT abdomen pelvis w con DATE OF EXAM: 01/14/2023 COMPARISON: 05/31/2018 HISTORY: abdominal pain CT DLP: 335.4 mGycm CONTRAST: CT scan of the abdomen and pelvis is performed with Oral Contrast and with IV Contrast, patient injec corwin with 100 mL of Isovue 300. FINDINGS: LUNG BASES-: No visible nodule. No infiltrate. LIVER/GB: Couple of tiny subcentimeter cysts seen scattered throughout the liver. The gallbladder is surgically absent. No space occupying hepatic lesion. Biliary tree is of normal caliber. PANCREAS: No inflammation. No distinct mass. SPLEEN: No splenic enlargement. No lesion seen. ADRENALS: No nodule. No thickening. KIDNEYS/BLADDER: No hydronephrosis. No nephrolithiasis. No distinct renal mass. Urinary bladder g rossly unremarkable. BOWEL: Normal appendix. Normal bowel caliber. No inflammation. GENITAL ORGANS: No gross abnormality. IUD is noted to be in place. LYMPH NODES: No greater than 1cm abdominal or pelvic lymph nodes are appreciated. AORTA: No significant abnormality. OSSEOUS STRUCTURES: No significant abnormality is seen. OTHER: No significant additional abnormality is seen. IMPRESSION: 1. No significant abnormality appreciated.
== END | disposition home or self-care (01) ==
LOC: RADCTMAIN 08:13
PROVIDERS: ATTEND Internal Medicine Gastroenterology
DX: R10.9 Unspecified abdominal pain (principal)
CPT/HCPCS: 74177; Q9967

== ENCOUNTER 2023-06-15 20:19 | Emergency (ER) | payer OTHER ==
--- NOTE | 2023-06-15 20:59 | XR ---
EXAMINATION TYPE: XR chest 2V DATE OF EXAM: 06/15/2023 8:52 PM CLINICAL INDICATION:Female, 38 years old with history of r/o pna; [facility] COMPARISON: Chest radiographs from 07/19/2022 TECHNIQUE: XR chest 2V Frontal and lateral views of the chest. FINDINGS: Lungs/Pleura: There is no evidence of pleural effusion, focal consolidation, or pneumothorax. Pulmonary vascularity: Unremarkable. Heart/mediastinum: Cardiomediastinal silhouette is unremarkable. Musculoskeletal: No acute osseous pathology. Other findings: Postsurgical clips noted in the lower neck/upper mediastinum. IMPRESSION: No acute cardiopulmonary disease/process.
[2023-06-15 21:07] VITALS: RESP 18; TEMP 98.1
--- NOTE | 2023-06-15 22:35 | ED ---
General Adult HPI - General Chief complaint: Upper Respiratory Infection Stated complaint: Chest pain, pressure in upper respiratory system Time Seen by Provider: 06/15/23 20:42 Source: family Mode of arrival: ambulatory Limitations: no limitations - History of Present Illness Initial comments: 38-year-old female presented to ED with complaints of URI symptoms. Patient notes history of cancer however is not currently on any chemotherapy, radiation, immunosuppressants. States over the past 2 to 4 days has had sinus headache, congestion, rhinorrhea, and bilateral ear fullness. No hearing loss. No discharge from the ears. No fever or chills. No chest pain shortness of breath. No other complaints at this time. - Related Data Home Medications Medication Instructions Recorded Confirmed Gabapentin [Neurontin] 400 mg PO TID 06/27/18 02/21/21 Albuterol Sulfate [Proair Hfa] 2 puff INHALATION RT-Q6H PRN 10/16/20 02/21/21 traMADol HCL 50 mg PO Q4H PRN 10/16/20 02/21/21 Levothyroxine Sodium [Synthroid] 75 mcg PO QAM 02/21/21 02/21/21 New Inhaler 2 puff INHALATION QID 02/21/21 02/21/21 Previous Rx's Medication Instructions Recorded Azithromycin 500 mg PO DAILY 7 Days #90 ml 10/20/21 Azithromycin [Zithromax] 250 mg PO DAILY #4 tab 03/16/22 Cefuroxime [Ceftin] 500 mg PO BID 5 Days #20 tab 03/16/22 Ofloxacin 0.3% Otic Soln [Floxin 10 drops LEFT EAR BID 10 Days #10 03/16/22 0.3% Otic Soln] ml predniSONE [Deltasone] 20 mg PO BID #10 tab 03/16/22 Doxycycline [Vibramycin] 100 mg PO BID 5 Days #10 cap 06/15/23 Allergies Allergy/AdvReac Type Severity Reaction Status Date / Time amoxicillin trihydrate AdvReac Severe Nausea & Verified 06/15/23 20:31 [From Augmentin] Vomiting & Diarrhea codeine AdvReac Severe Dyspnea Verified 06/15/23 20:31 potassium clavulanate AdvReac Severe Nausea & Verified 06/15/23 20:31 [From Augmentin] Vomiting & Diarrhea ciprofloxacin AdvReac Dyspnea Verified 06/15/23 20:31 sumatriptan [From Imitrex] AdvReac Dyspnea Verified 06/15/23 20:31 Review of Systems ROS Statement: Those systems with pertinent positive or pertinent negative responses have been documented in the HPI. ROS Other: All systems not noted in ROS Statement are negative. 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 Left lung diaphragm paralyzed. On vent and in coma with pneumonia in [id number]. neuropathy bilateral feet,received anthony cortisone injections to feet on 02-20-21. History of Any Multi-Drug Resistant Organisms: MRSA Date of last positivie culture/infection: 2008 MDRO Source:: left calf Past Surgical History: Cholecystectomy, Orthopedic Surgery Additional Past Surgical History / Comment(s): Multiple oral surgeries, bronchoscopy, thyroidectomy, myringotomy/tubes bilateral ears, LEFT WRIST SURGERY, g-tube inserted and removed april 21, 2017 Past Anesthesia/Blood Transfusion Reactions: No Reported Reaction Additional Past Anesthesia/Blood Transfusion Reaction / Comment(s): Uses child size ET tube and endoscope Past Psychological History: Anxiety, Depression Smoking Status: Former smoker Past Alcohol Use History: None Reported Past Drug Use History: Marijuana - Past Family History Father Family Medical History: Cancer, Hyperlipidemia, Hypertension, Thyroid Disorder Additional Family Medical History / Comment(s): anxiety depression Mother Family Medical History: Diabetes Mellitus, Thyroid Disorder Brother(s) Family Medical History: No Reported History Sister(s) Family Medical History: No Reported History Additional Family Medical History / Comment(s): PCOS Daughter(s) Family Medical History: No Reported History General Exam Limitations: no limitations General appearance: alert, in no apparent distress Head exam: Present: other (Frontal and maxillary sinus tenderness to palpation.) ENT exam: Present: TM's normal bilaterally Neck exam: Present: normal inspection Respiratory exam: Present: normal lung sounds bilaterally Cardiovascular Exam: Present: regular rate GI/Abdominal exam: Present: soft. Absent: distended, tenderness, guarding, rebound, rigid Neurological exam: Present: alert, oriented X3 Skin exam: Present: warm, dry Course Vital Signs 06/15/23 20:28 Temperature 98.1 F Pulse Rate 80 Respiratory 18 Rate Blood Pressure 151/96 O2 Sat by Pulse 100 Oximetry Medical Decision Making - Medical Decision Making Was pt. sent in by a medical professional or institution (, PA, BILLET HEADER, urgent care, hospital, or custodial...) When possible be specific @ -No Did you speak to anyone other than the patient for history (EMS, parent, family, police, friend...)? What history was obtained from this source @ -No Did you review nursing and triage notes (agree or disagree)? Why? @ -I reviewed and agree with nursing and triage notes Were old charts reviewed (outside hosp., previous admission, EMS record, old EKG, old radiological studies, urgent care reports/EKG's, custodial records)? Report findings @ -No old charts were reviewed Differential Diagnosis (chest pain, altered mental status, abdominal pain women, abdominal pain men, vaginal bleeding, weakness, fever, dyspnea, syncope, headache, dizziness, GI bleed, back pain, seizure, CVA, palpatations, mental health, musculoskeletal)? @ -Differential Fever: Pneumonia, viral URI, endocarditis, myocarditis, pericarditis, otitis, sinusitis, peritonsillar Abscess, retropharyngeal Abscess, epiglottitis, peritonitis, appendicitis, Porsha cystitis, diverticulitis, hepatitis, colitis, UTI, PID, TOA, pyelonephritis, prostatitis, epididymitis, meningitis, encephalitis, pulmonary embolism, CVA, thyroid storm, pancreatitis, adrenal crisis, cavernous sinus thrombosis, this is not meant to be an all-inclusive list. EKG interpreted by me (3pts min.). @ -None X-rays interpreted by me (1pt min.). @ -Chest x-ray interpreted me which revealed no evidence of acute finding. CT interpreted by me (1pt min.). @ -None done U/S interpreted by me (1pt. min.). @ -None done What testing was considered but not performed or refused? (CT, X-rays, U/S, labs)? Why? @ -None What meds were considered but not given or refused? Why? @ -None Did you discuss the management of the patient with other professionals (professionals i.e. , PA, BILLET HEADER, lab, RT, psych nurse, social services specialist, churn driller helper, teacher, geological technical officer, case making machine operator)? Give summary @ -No Was smoking cessation discussed for >3mins.? @ -No Was critical care preformed (if so, how long)? @ -No Were there social determinants of health that impacted care today? How? (Homelessness, low income, unemployed, alcoholism, drug addiction, transportation, low edu. Level, literacy, decrease access to med. care, senior living, rehab)? @ -No Was there de-escalation of care discussed even if they declined (Discuss DNR or withdrawal of care, Hospice)? DNR status @ -No What co-morbidities impacted this encounter? (DM, HTN, Smoking, COPD, CAD, Cancer, CVA, ARF, Chemo, Hep., AIDS, mental health diagnosis, sleep apnea, morbid obesity)? @ -None Was patient admitted / discharged? Hospital course, mention meds given and route, prescriptions, significant lab abnormalities, going to OR and other pertinent info. @ -Discharge 38-year-old female presents to the ED with 3 to 4 days of URI symptoms with symptomatology consistent with sinus infection, at this time which is likely viral in nature. Had thorough discussion with patient and mother and advised that symptoms were likely viral in nature and patient would not be getting antibiotics to go home with. At this point of conversation, patient and mother became upset. Requesting antibiotics. Again, advised that antibiotics are not indicated at this time. Patient and mother continued to become upset. Patient provided prescription for doxycycline. Again, at this time not indicated. Di scharged home in stable condition. Advise follow-up with PCP. Discussed return precautions with patient. Undiagnosed new problem with uncertain prognosis? @ -No Drug Therapy requiring intensive monitoring for toxicity (Heparin, Nitro, Insulin, Cardizem)? @ -No Were any procedures done? @ -No Diagnosis/symptom? @ -Sinusitis, likely viral in nature Acute, or Chronic, or Acute on Chronic? @ -Acute Uncomplicated (without systemic symptoms) or Complicated (systemic symptoms)? @ -Uncomplicated Side effects of treatment? @ -No Exacerbation, Progression, or Severe Exacerbation? @ -No Poses a threat to life or bodily function? How? (Chest pain, USA, [place], pneumonia, PE, COPD, DKA, ARF, appy, cholecystitis, CVA, Diverticulitis, Homicidal, Suicidal, threat to staff... and all critical care pts) @ -No - Lab Data Lab Results 06/15/23 Range/Units 20:32 Influenza Type A (PCR) Not Detected (Not Detectd) Influenza Type B (PCR) Not Detected (Not Detectd) RSV (PCR) Not Detected (Not Detectd) SARS-CoV-2 (PCR) Not Detected (Not Detectd) Disposition Clinical Impression: Viral sinusitis Disposition: HOME SELF-CARE Condition: Good Instructions (If sedation given, give patient instructions): Sinusitis (ED) Additional Instructions: Please return to the Emergency Department if symptoms worsen or any other concerns. Follow-up with your primary care provider. Prescriptions: Doxycycline [Vibramycin] 100 mg PO BID 5 Days #10 cap Is patient prescribed a controlled substance at d/c from ED?: No Referrals: Dayo Vidal DO [Primary Care Provider] - 1-2 days Time of Disposition: 22:39
[2023-06-15 23:23] VITALS: BP 138/95; PULSE 68
== END 2023-06-15 22:49 | disposition home or self-care (01) ==
LOC: EC 20:19
DX: J32.9 Chronic sinusitis, unspecified (principal); F12.90 Cannabis use, unspecified, uncomplicated; Z88.0 Allergy status to penicillin; Z88.5 Allergy status to narcotic agent; Z88.1 Allergy status to other antibiotic agents; Z88.8 Allergy status to other drugs, medicaments and biological substances; Z87.891 Personal history of nicotine dependence
CPT/HCPCS: 71046; 87636; 99285

== ENCOUNTER 2023-09-07 16:18 | Emergency (ER) | payer OTHER ==
[2023-09-07 16:27] VITALS: RESP 18; TEMP 97.4
--- NOTE | 2023-09-07 16:56 | XR ---
EXAMINATION TYPE: XR wrist complete LT DATE OF EXAM: 09/07/2023 4:41 PM CLINICAL INDICATION:Female, 38 years old with history of pain; [facility] COMPARISON: 03/04/2014 TECHNIQUE: XR wrist complete LT; examined in the Frontal, navicular, lateral, and oblique. FINDINGS: No acute osseous pathology, joint dislocation, or joint effusion. No evidence of any soft tissue swelling is seen. IMPRESSION: No acute osseous pathology.
--- NOTE | 2023-09-07 18:10 | ED ---
General Adult HPI - General Chief complaint: Extremity Injury, Upper Stated complaint: Left arm injury Time Seen by Provider: 09/07/23 17:53 Source: patient, RN notes reviewed Mode of arrival: ambulatory Limitations: no limitations - History of Present Illness Initial comments: 38 year old female presents to the emergency department for evaluation of left upper extremity injury. Patient reports that she was attempting to move a heavy box when she felt a pop in her upper arm. She reports that since then she has had pain in her upper extremity. She reports some difficulty with raising her arm above her head. .Denies numbness, tingling. - Related Data Home Medications Medication Instructions Recorded Confirmed Gabapentin [Neurontin] 400 mg PO TID 06/27/18 02/21/21 Albuterol Sulfate [Proair Hfa] 2 puff INHALATION RT-Q6H PRN 10/16/20 02/21/21 traMADol HCL 50 mg PO Q4H PRN 10/16/20 02/21/21 Levothyroxine Sodium [Synthroid] 75 mcg PO QAM 02/21/21 02/21/21 New Inhaler 2 puff INHALATION QID 02/21/21 02/21/21 Previous Rx's Medication Instructions Recorded Azithromycin 500 mg PO DAILY 7 Days #90 ml 10/20/21 Azithromycin [Zithromax] 250 mg PO DAILY #4 tab 03/16/22 Cefuroxime [Ceftin] 500 mg PO BID 5 Days #20 tab 03/16/22 Ofloxacin 0.3% Otic Soln [Floxin 10 drops LEFT EAR BID 10 Days #10 03/16/22 0.3% Otic Soln] ml predniSONE [Deltasone] 20 mg PO BID #10 tab 03/16/22 Doxycycline [Vibramycin] 100 mg PO BID 5 Days #10 cap 06/15/23 Allergies Allergy/AdvReac Type Severity Reaction Status Date / Time amoxicillin trihydrate AdvReac Severe Nausea & Verified 09/07/23 16:27 [From Augmentin] Vomiting & Diarrhea codeine AdvReac Severe Dyspnea Verified 09/07/23 16:27 potassium clavulanate AdvReac Severe Nausea & Verified 09/07/23 16:27 [From Augmentin] Vomiting & Diarrhea ciprofloxacin AdvReac Dyspnea Verified 09/07/23 16:27 sumatriptan [From Imitrex] AdvReac Dyspnea Verified 09/07/23 16:27 Review of Systems ROS Statement: Those systems with pertinent positive or pertinent negative responses have been documented in the HPI. ROS Other: All systems not noted in ROS Statement are negative. 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 Left lung diaphragm paralyzed. On vent and in coma with pneumonia in [id number]. neuropathy bilateral feet,received anthony cortisone injections to feet on 02-20-21. History of Any Multi-Drug Resistant Organisms: MRSA Date of last positivie culture/infection: 2008 MDRO Source:: left calf Past Surgical History: Cholecystectomy, Orthopedic Surgery Additional Past Surgical History / Comment(s): Multiple oral surgeries, bronchoscopy, thyroidectomy, myringotomy/tubes bilateral ears, LEFT WRIST SURGERY, g-tube inserted and removed april 21, 2017 Past Anesthesia/Blood Transfusion Reactions: No Reported Reaction Additional Past Anesthesia/Blood Transfusion Reaction / Comment(s): Uses child size ET tube and endoscope Past Psychological History: Anxiety, Depression Smoking Status: Never smoker Past Alcohol Use History: Occasional Past Drug Use History: None Reported - Past Family History Father Family Medical History: Cancer, Hyperlipidemia, Hypertension, Thyroid Disorder Additional Family Medical History / Comment(s): anxiety depression Mother Family Medical History: Diabetes Mellitus, Thyroid Disorder Brother(s) Family Medical History: No Reported History Sister(s) Family Medical History: No Reported History Additional Family Medical History / Comment(s): PCOS Daughter(s) Family Medical History: No Reported History General Exam Limitations: no limitations General appearance: alert, in no apparent distress Head exam: Present: atraumatic, normocephalic, normal inspection Eye exam: Present: normal appearance, PERRL, EOMI. Absent: scleral icterus, conjunctival injection, periorbital swelling ENT exam: Present: normal exam, mucous membranes moist Neck exam: Present: normal inspection. Absent: tenderness, meningismus, lymphadenopathy Respiratory exam: Present: normal lung sounds bilaterally. Absent: respiratory distress, wheezes, rales, rhonchi, stridor Cardiovascular Exam: Present: regular rate, normal rhythm, normal heart sounds. Absent: systolic murmur, diastolic murmur, rubs, gallop, clicks Extremities exam: Present: full ROM, tenderness (left upper extremity), normal capillary refill, other (radial pulses 2+). Absent: pedal edema, joint swelling, calf tenderness Neurological exam: Present: alert, oriented X3 Psychiatric exam: Present: normal affect, normal mood Skin exam: Present: warm, dry, intact, normal color. Absent: rash Course Vital Signs 09/07/23 09/07/23 16:26 19:34 Temperature 97.4 F L Pulse Rate 78 63 Respiratory 18 18 Rate Blood Pressure 114/84 125/87 O2 Sat by Pulse 99 98 Oximetry Medical Decision Making - Medical Decision Making Was pt. sent in by a medical professional or institution (KRYSTAL Barragan, DIAMOND DRILLER HELPER, urgent care, hospital, or jail...) When possible be specific @ -No Did you speak to anyone other than the patient for history (EMS, parent, family, police, friend...)? What history was obtained from this source @ -No Did you review nursing and triage notes (agree or disagree)? Why? @ -I reviewed and agree with nursing and triage notes Were old charts reviewed (outside hosp., previous admission, EMS record, old EKG, old radiological studies, urgent care reports/EKG's, jail records)? Report findings @ -No old charts were reviewed Differential Diagnosis (chest pain, altered mental status, abdominal pain women, abdominal pain men, vaginal bleeding, weakness, fever, dyspnea, syncope, headache, dizziness, GI bleed, back pain, seizure, CVA, palpatations, mental health, musculoskeletal)? @ -Differential Musculoskeletal Muscular strain, contusion, ligament sprain, fracture, arthritis, septic arthritis, bursitis, cellulitis, muscle spasm, nerve compression, DVT, arterial occlusion, herpes zoster, electrolyte abnormality, tumor.... This is not meant to be in all inclusive list EKG interpreted by me (3pts min.). @ -None X-rays interpreted by me (1pt min.). @ -XR of the left wrist and humerus show no evidence of acute fracture or dislocation CT interpreted by me (1pt min.). @ -None done U/S interpreted by me (1pt. min.). @ -None done What testing was considered but not performed or refused? (CT, X-rays, U/S, labs)? Why? @ -None What meds were considered but not given or refused? Why? @ -None Did you discuss the management of the patient with other professionals (professionals i.e. , PA, DIAMOND DRILLER HELPER, lab, RT, psych nurse, social security assessor, healthcare translator, teacher, residential care officer, ed case manager)? Give summary @ -No Was smoking cessation discussed for >3mins.? @ -No Was critical care preformed (if so, how long)? @ -No Were there social determinants of health that impacted care today? How? (Homelessness, low income, unemployed, alcoholism, drug addiction, transportation, low edu. Level, literacy, decrease access to med. care, assisted, rehab)? @ -No Was there de-escalation of care discussed even if they declined (Discuss DNR or withdrawal of care, Hospice)? DNR status @ -No What co-morbidities impacted this encounter? (DM, HTN, Smoking, COPD, CAD, Cancer, CVA, ARF, Chemo, Hep., AIDS, mental health diagnosis, sleep apnea, morbid obesity)? @ -None Was patient admitted / discharged? Hospital course, mention meds given and route, prescriptions, significant lab abnormalities, going to OR and other pertinent info. @ -Discharged. Patient presented to the emergency department for evaluation of left upper extremity injury. While in the waiting room, an x-ray of the left wrist was obtained. This was reviewed showing no acute fracture or dislocation. After my examination, x-ray of the wrist was obtained revealing no acute osseous abnormality. Patient will be discharged home. Advised symptomatic treatment at this time and follow-up with orthopedics if no improvement. She is understanding agreeable plan. Patient stable at time of discharge. Case discussed with Dr. Tatum. Undiagnosed new problem with uncertain prognosis? @ -No Drug Therapy requiring intensive monitoring for toxicity (Heparin, Nitro, Insulin, Cardizem)? @ -No Were any procedures done? @ -No Diagnosis/symptom? @ -Shoulder sprain Acute, or Chronic, or Acute on Chronic? @ -Acute Uncomplicated (without systemic symptoms) or Complicated (systemic symptoms)? @ -Uncomplicated Side effects of treatment? @ -No Exacerbation, Progression, or Severe Exacerbation? @ -No Poses a threat to life or bodily function? How? (Chest pain, USA, [place], pneumonia, PE, COPD, DKA, ARF, appy, cholecystitis, CVA, Diverticulitis, Homicidal, Suicidal, threat to staff... and all critical care pts) @ -No Disposition Clinical Impression: Sprain of left upper arm Disposition: HOME SELF-CARE Condition: Stable Instructions (If sedation given, give patient instructions): Wrist Injury (ED) Additional Instructions: Please follow up with your primary care provider. Return to the emergency department for new or worsening symptoms. Is patient prescribed a controlled substance at d/c from ED?: No Referrals: Dayo Vidal DO [Primary Care Provider] - 1-2 days
--- NOTE | 2023-09-07 18:41 | XR ---
EXAMINATION TYPE: XR humerus LT DATE OF EXAM: 09/07/2023 6:28 PM CLINICAL INDICATION:Female, 38 years old with history of pain; [facility] COMPARISON: Left shoulder 07/06/2019 TECHNIQUE: XR humerus LT examined in frontal and lateral projections. FINDINGS: No evidence of acute osseous pathology, joint dislocation, or soft tissue swelling. The rem aining portions of the visualized chest are unremarkable. IMPRESSION: No acute osseous pathology.
[2023-09-07 19:36] VITALS: BP 125/87; PULSE 63
== END 2023-09-07 19:34 | disposition home or self-care (01) ==
LOC: EC 16:18
DX: S43.402A Unspecified sprain of left shoulder joint, initial encounter (principal); Z88.0 Allergy status to penicillin; Z88.5 Allergy status to narcotic agent; Z88.8 Allergy status to other drugs, medicaments and biological substances; Z90.49 Acquired absence of other specified parts of digestive tract; X50.0XXA Overexertion from strenuous movement or load, initial encounter
CPT/HCPCS: 99283

== ENCOUNTER 2023-09-20 20:00 | Emergency (ER) | payer OTHER ==
[2023-09-20] MEDS ORDERED: ASPIRIN 81 MG ONE (22:00)
[2023-09-20] MEDS ORDERED: SODIUM CHLORIDE 0.9% 1,000 ML BAG ONE (22:00)
--- NOTE | 2023-10-22 16:08 | XR ---
EXAMINATION TYPE: XR chest 2V DATE OF EXAM: 09/20/2023 COMPARISON: Chest radiographs from 06/15/2023 TECHNIQUE: XR chest 2V Frontal and lateral views of the chest. CLINICAL INDICATION:Female, 38 years old with history of SOB; FINDINGS: Lungs/Pleura: There is no evidence of pleural effusion, focal consolidation, or pneumothorax. Pulmonary vascularity: Unremarkable. Heart/mediastinum: Cardiomediastinal silhouette is unremarkable. Multiple surgical clips identified within the lower neck/upper mediastinum again. Musculoskeletal: No acute osseous pathology. IMPRESSION: No acute cardiopulmonary disease/process.
== END 2023-09-21 03:16 | disposition home or self-care (01) ==
LOC: EC 20:00
DX: J40 Bronchitis, not specified as acute or chronic (principal)
CPT/HCPCS: 71046; 93005; 99285

== ENCOUNTER 2023-10-25 18:37 | Emergency (ER) | payer OTHER ==
[2023-10-25 18:49] VITALS: TEMP 97.5
--- NOTE | 2023-10-25 18:56 | ED ---
Lower Extremity Injury HPI - General Chief Complaint: Extremity Injury, Lower Stated Complaint: R foot pain Time Seen by Provider: 10/25/23 18:50 Source: patient, RN notes reviewed Mode of arrival: ambulatory Limitations: no limitations - History of Present Illness Initial Comments: 38-year-old female presents emergency department chief complaint of right foot fifth digit pain. Patient states that over the past 2 days she noticed that her fifth digit of her right foot was mildly swollen. Patient denies any known injuries. Denies pain with ambulation, paresthesias. Denies previous surgeries of the foot. Denies ankle, knee, or hip pain. Denies fevers, chills, nausea, vomiting, erythema or streaking redness of the painful toe. No other acute complaints at this time. - Related Data Home Medications Medication Instructions Recorded Confirmed Gabapentin [Neurontin] 400 mg PO TID 06/27/18 02/21/21 Albuterol Sulfate [Proair Hfa] 2 puff INHALATION RT-Q6H PRN 10/16/20 02/21/21 traMADol HCL 50 mg PO Q4H PRN 10/16/20 02/21/21 Levothyroxine Sodium [Synthroid] 75 mcg PO QAM 02/21/21 02/21/21 New Inhaler 2 puff INHALATION QID 02/21/21 02/21/21 Previous Rx's Medication Instructions Recorded Azithromycin 500 mg PO DAILY 7 Days #90 ml 10/20/21 Azithromycin [Zithromax] 250 mg PO DAILY #4 tab 03/16/22 Cefuroxime [Ceftin] 500 mg PO BID 5 Days #20 tab 03/16/22 Ofloxacin 0.3% Otic Soln [Floxin 10 drops LEFT EAR BID 10 Days #10 03/16/22 0.3% Otic Soln] ml predniSONE [Deltasone] 20 mg PO BID #10 tab 03/16/22 Doxycycline [Vibramycin] 100 mg PO BID 5 Days #10 cap 06/15/23 Allergies Allergy/AdvReac Type Severity Reaction Status Date / Time amoxicillin trihydrate AdvReac Severe Nausea & Verified 09/07/23 16:27 [From Augmentin] Vomiting & Diarrhea codeine AdvReac Severe Dyspnea Verified 09/07/23 16:27 potassium clavulanate AdvReac Severe Nausea & Verified 09/07/23 16:27 [From Augmentin] Vomiting & Diarrhea ciprofloxacin AdvReac Dyspnea Verified 09/07/23 16:27 sumatriptan [From Imitrex] AdvReac Dyspnea Verified 09/07/23 16:27 Review of Systems ROS Statement: Those systems with pertinent positive or pertinent negative responses have been documented in the HPI. ROS Other: All systems not noted in ROS Statement are negative. 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 Left lung diaphragm paralyzed. On vent and in coma with pneumonia in [id number]. neuropathy bilateral feet,received anthony cortisone injections to feet on 02-20-21. History of Any Multi-Drug Resistant Organisms: MRSA Date of last positivie culture/infection: 2008 MDRO Source:: left calf Past Surgical History: Cholecystectomy, Orthopedic Surgery Additional Past Surgical History / Comment(s): Multiple oral surgeries, bronchoscopy, thyroidectomy, myringotomy/tubes bilateral ears, LEFT WRIST SURGERY, g-tube inserted and removed april 21, 2017 Past Anesthesia/Blood Transfusion Reactions: No Reported Reaction Additional Past Anesthesia/Blood Transfusion Reaction / Comment(s): Uses child size ET tube and endoscope Past Psychological History: Anxiety, Depression Smoking Status: Never smoker Past Alcohol Use History: Occasional Past Drug Use History: None Reported - Past Family History Father Family Medical History: Cancer, Hyperlipidemia, Hypertension, Thyroid Disorder Additional Family Medical History / Comment(s): anxiety depression Mother Family Medical History: Diabetes Mellitus, Thyroid Disorder Brother(s) Family Medical History: No Reported History Sister(s) Family Medical History: No Reported History Additional Family Medical History / Comment(s): PCOS Daughter(s) Family Medical History: No Reported History General Exam Limitations: no limitations General appearance: alert, in no apparent distress Eye exam: Present: normal appearance, PERRL, EOMI. Absent: scleral icterus, conjunctival injection, periorbital swelling ENT exam: Present: normal exam, mucous membranes moist Respiratory exam: Present: normal lung sounds bilaterally. Absent: respiratory distress, wheezes, rales, rhonchi, stridor Cardiovascular Exam: Present: regular rate, normal rhythm, normal heart sounds. Absent: systolic murmur, diastolic murmur, rubs, gallop, clicks GI/Abdominal exam: Present: soft, normal bowel sounds. Absent: distended, tenderness, guarding, rebound, rigid Right Foot/Toe exam: Present: normal inspection, full ROM, tenderness (5th digit). Absent: swelling, abrasion, laceration, ecchymosis Neurovascular tendon exam: Present: no vascular compromise. Absent: pulse deficit, abnormal cap refill Gait: observed and normal Back exam: Present: normal inspection Skin exam: Present: warm, dry, intact, normal color. Absent: rash Course Vital Signs 10/25/23 10/25/23 18:47 19:55 Temperature 97.5 F L Pulse Rate 80 69 Respiratory 16 18 Rate Blood Pressure 140/100 130/90 O2 Sat by Pulse 98 100 Oximetry Medical Decision Making - Medical Decision Making Was pt. sent in by a medical professional or institution ([facility]ST[facility]agan, [employer], urgent care, hospital, or snf...) When possible be specific @ -No Did you speak to anyone other than the patient for history (EMS, parent, family, police, friend...)? What history was obtained from this source @ -No Did you review nursing and triage notes (agree or disagree)? Why? @ -I reviewed and agree with nursing and triage notes Were old charts reviewed (outside hosp., previous admission, EMS record, old EKG, old radiological studies, urgent care reports/EKG's, snf records)? Report findings @ -No old charts were reviewed Differential Diagnosis (chest pain, altered mental status, abdominal pain women, abdominal pain men, vaginal bleeding, weakness, fever, dyspnea, syncope, headache, dizziness, GI bleed, back pain, seizure, CVA, palpatations, mental health, musculoskeletal)? @ -Differential Musculoskeletal Muscular strain, contusion, ligament sprain, fracture, arthritis, septic arthritis, bursitis, cellulitis, muscle spasm, nerve compression, DVT, arterial occlusion, herpes zoster, electrolyte abnormality, tumor.... This is not meant to be in all inclusive list EKG interpreted by me (3pts min.). @ - none X-rays interpreted by me (1pt min.). @ -X-ray of the right foot no acute osseous abnormality CT interpreted by me (1pt min.). @ -None done U/S interpreted by me (1pt. min.). @ -None done What testing was considered but not performed or refused? (CT, X-rays, U/S, labs)? Why? @ -None What meds were considered but not given or refused? Why? @ -None Did you discuss the management of the patient with other professionals (professionals i.e. , PA, [employer]ER, lab, RT, psych nurse, social and political studies professor, b2b sales professional, teacher, county health officer, registered nurse hh case manager)? Give summary @ -No Was smoking cessation discussed for >3mins.? @ -No Was critical care preformed (if so, how long)? @ -No Were there social determinants of health that impacted care today? How? (Homelessness, low income, unemployed, alcoholism, drug addiction, transportation, low edu. Level, literacy, decrease access to med. care, [facility], rehab)? @ -No Was there de-escalation of care discussed even if they declined (Discuss DNR or withdrawal of care, Hospice)? DNR status @ -No What co-morbidities impacted this encounter? (DM, HTN, Smoking, COPD, CAD, Cancer, CVA, ARF, Chemo, Hep., AIDS, mental health diagnosis, sleep apnea, morbid obesity)? @ -None Was patient admitted / discharged? Hospital course, mention meds given and route, prescriptions, significant lab abnormalities, going to OR and other pertinent info. @ -Discharge. 38-year-old female with right foot pain. On examination patient noted to have full range of motion of the right foot with no acute neurovascular deficits. X-ray negative for acute process. Recommend the patient continue to rest, ice, elevate painful area. Patient may have sprained toe and is causing residual discomfort. All questions answered at bedside strict return parameters as the patient verbalized understanding, discussed with Dr. Pritchett. Undiagnosed new problem with uncertain prognosis? @ -No Drug Therapy requiring intensive monitoring for toxicity (Heparin, Nitro, Insulin, Cardizem)? @ -No Were any procedures done? @ -No Diagnosis/symptom? @ -toe pain Acute, or Chronic, or Acute on Chronic? @ -acute Uncomplicated (without systemic symptoms) or Complicated (systemic symptoms)? @ -uncomplicated Side effects of treatment? @ -No Exacerbation, Progression, or Severe Exacerbation? @ -No Poses a threat to life or bodily function? How? (Chest pain, USA, VT, pneumonia, PE, COPD, DKA, ARF, appy, cholecystitis, CVA, Diverticulitis, Homicidal, Suicidal, threat to staff... and all critical care pts) @ -No Disposition Clinical Impression: Right foot pain Disposition: HOME SELF-CARE Condition: Good Instructions (If sedation given, give patient instructions): Foot Sprain (ED) Is patient prescribed a controlled substance at d/c from ED?: No Referrals: Dayo Vidal DO [Primary Care Provider] - 1-2 days
--- NOTE | 2023-10-25 19:13 | XR ---
EXAMINATION TYPE: XR foot complete RT DATE OF EXAM: 10/25/2023 COMPARISON: NONE HISTORY: 38-year-old female fifth toe pain TECHNIQUE: 3 views FINDINGS: Os peroneum. Type II accessory navicular. No acute fracture, subluxation, or dislocation. IMPRESSION: No acute osseous abnormality seen. Type II accessory navicular may become symptomatic in some patient s. [facility], , 10/25/2023 7:11 PM
[2023-10-25 19:56] VITALS: BP 130/90; PULSE 69; RESP 18
== END 2023-10-25 19:55 | disposition home or self-care (01) ==
LOC: EC 18:37
CPT/HCPCS: 99283

== ENCOUNTER 2023-12-28 17:13 | Emergency (ER) | payer OTHER ==
--- NOTE | 2023-12-28 18:32 | ED ---
General Adult HPI - General Chief complaint: Abdominal Pain Stated complaint: abd pain on breathing Time Seen by Provider: 12/28/23 17:43 Source: patient, RN notes reviewed Mode of arrival: ambulatory Limitations: no limitations - History of Present Illness Initial comments: 38-year-old female presents to the emergency department for evaluation of left- sided chest/abdominal discomfort. She reports that the pain is located under her left rib cage. She states that 2 days ago the pain started when she was changing the garbage. She reports the pain is sharp stabbing pain. She notes that the pain has continued and is worse with taking a deep breath. She denies any shortness of breath, nausea, vomiting, changes in bowel habits or urination. - Related Data Home Medications Medication Instructions Recorded Confirmed Gabapentin [Neurontin] 400 mg PO TID 06/27/18 02/21/21 Albuterol Sulfate [Proair Hfa] 2 puff INHALATION RT-Q6H PRN 10/16/20 02/21/21 traMADol HCL 50 mg PO Q4H PRN 10/16/20 02/21/21 Levothyroxine Sodium [Synthroid] 75 mcg PO QAM 02/21/21 02/21/21 New Inhaler 2 puff INHALATION QID 02/21/21 02/21/21 Previous Rx's Medication Instructions Recorded Azithromycin 500 mg PO DAILY 7 Days #90 ml 10/20/21 Azithromycin [Zithromax] 250 mg PO DAILY #4 tab 03/16/22 Cefuroxime [Ceftin] 500 mg PO BID 5 Days #20 tab 03/16/22 Ofloxacin 0.3% Otic Soln [Floxin 10 drops LEFT EAR BID 10 Days #10 03/16/22 0.3% Otic Soln] ml predniSONE [Deltasone] 20 mg PO BID #10 tab 03/16/22 Doxycycline [Vibramycin] 100 mg PO BID 5 Days #10 cap 06/15/23 Allergies Allergy/AdvReac Type Severity Reaction Status Date / Time amoxicillin trihydrate AdvReac Severe Nausea & Verified 12/28/23 17:42 [From Augmentin] Vomiting & Diarrhea codeine AdvReac Severe Dyspnea Verified 12/28/23 17:42 potassium clavulanate AdvReac Severe Nausea & Verified 12/28/23 17:42 [From Augmentin] Vomiting & Diarrhea ciprofloxacin AdvReac Dyspnea Verified 12/28/23 17:42 sumatriptan [From Imitrex] AdvReac Dyspnea Verified 12/28/23 17:42 Review of Systems ROS Statement: Those systems with pertinent positive or pertinent negative responses have been documented in the HPI. ROS Other: All systems not noted in ROS Statement are negative. 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 Left lung diaphragm paralyzed. On vent and in coma with pneumonia in [id number]. neuropathy bilateral feet,received anthony cortisone injections to feet on 02-20-21. History of Any Multi-Drug Resistant Organisms: MRSA Date of last positivie culture/infection: 2008 MDRO Source:: left calf Past Surgical History: Cholecystectomy, Orthopedic Surgery Additional Past Surgical History / Comment(s): Multiple oral surgeries, bronchoscopy, thyroidectomy, myringotomy/tubes bilateral ears, LEFT WRIST SURGERY, g-tube inserted and removed april 21, 2017 Past Anesthesia/Blood Transfusion Reactions: No Reported Reaction Additional Past Anesthesia/Blood Transfusion Reaction / Comment(s): Uses child size ET tube and endoscope Past Psychological History: Anxiety, Depression Smoking Status: Never smoker Past Alcohol Use History: Occasional Past Drug Use History: None Reported - Past Family History Father Family Medical History: Cancer, Hyperlipidemia, Hypertension, Thyroid Disorder Additional Family Medical History / Comment(s): anxiety depression Mother Family Medical History: Diabetes Mellitus, Thyroid Disorder Brother(s) Family Medical History: No Reported History Sister(s) Family Medical History: No Reported History Additional Family Medical History / Comment(s): PCOS Daughter(s) Family Medical History: No Reported History General Exam Limitations: no limitations General appearance: alert, in no apparent distress Head exam: Present: atraumatic, normocephalic, normal inspection Eye exam: Present: normal appearance, PERRL, EOMI. Absent: scleral icterus, conjunctival injection, periorbital swelling ENT exam: Present: normal exam, mucous membranes moist Respiratory exam: Present: decreased breath sounds (Left lung bases) Cardiovascular Exam: Present: regular rate, normal rhythm, normal heart sounds. Absent: systolic murmur, diastolic murmur, rubs, gallop, clicks GI/Abdominal exam: Present: soft, normal bowel sounds. Absent: distended, tenderness, guarding, rebound, rigid Extremities exam: Present: normal inspection, full ROM, normal capillary refill. Absent: tenderness, pedal edema, joint swelling, calf tenderness Back exam: Present: normal inspection Neurological exam: Present: alert, oriented X3 Psychiatric exam: Present: normal affect, normal mood Skin exam: Present: warm, dry, intact, normal color. Absent: rash Course Vital Signs 12/28/23 12/28/23 12/28/23 17:38 21:17 21:32 Temperature 98 F 97.6 F Pulse Rate 76 75 Respiratory 20 16 Rate Blood Pressure 127/91 157/109 161/93 O2 Sat by Pulse 100 100 Oximetry Medical Decision Making - Medical Decision Making Was pt. sent in by a medical professional or institution (, PA, TABULAR TYPIST, urgent care, hospital, or correction...) When possible be specific @ -No Did you speak to anyone other than the patient for history (EMS, parent, family, police, friend...)? What history was obtained from this source @ -No Did you review nursing and triage notes (agree or disagree)? Why? @ -I reviewed and agree with nursing and triage notes Were old charts reviewed (outside hosp., previous admission, EMS record, old EKG, old radiological studies, urgent care reports/EKG's, correction records)? Report findings @ -No old charts were reviewed Differential Diagnosis (chest pain, altered mental status, abdominal pain women, abdominal pain men, vaginal bleeding, weakness, fever, dyspnea, syncope, headache, dizziness, GI bleed, back pain, seizure, CVA, palpatations, mental health, musculoskeletal)? @ -Differential Chest Pain: Stable Angina, Unstable Angina, STEMI, NSTEMI Aortic Dissection, Pneumothorax, Musculoskeletal, Esophageal Spasm GERD, Cholecystitis, Pancreatitis, Zoster, this is not meant to be an all-inclusive list. EKG interpreted by me (3pts min.). @ -EKG at 1822 shows sinus bradycardia rate 54, AL 146, QRS 82, QTQTc [id number] X-rays interpreted by me (1pt min.). @ -Chest x-ray shows no acute process CT interpreted by me (1pt min.). @ -None done U/S interpreted by me (1pt. min.). @ -None done What testing was considered but not performed or refused? (CT, X-rays, U/S, labs)? Why? @ -None What meds were considered but not given or refused? Why? @ -None Did you discuss the management of the patient with other professionals (professionals i.e. , PA, TABULAR TYPIST, lab, RT, psych nurse, delinquency prevention social worker, tailor apprentice, teacher, chief financial officer, case investigator)? Give summary @ -No Was smoking cessation discussed for >3mins.? @ -No Was critical care preformed (if so, how long)? @ -No Were there social determinants of health that impacted care today? How? (Homelessness, low income, unemployed, alcoholism, drug addiction, transportation, low edu. Level, literacy, decrease access to med. care, residential, rehab)? @ -No Was there de-escalation of care discussed even if they declined (Discuss DNR or withdrawal of care, Hospice)? DNR status @ -No What co-morbidities impacted this encounter? (DM, HTN, Smoking, COPD, CAD, Cancer, CVA, ARF, Chemo, Hep., AIDS, mental health diagnosis, sleep apnea, morbid obesity)? @ -None Was patient admitted / discharged? Hospital course, mention meds given and route, prescriptions, significant lab abnormalities, going to OR and other pertinent info. @ -Discharge. Patient presented to the emergency department for evaluation of abdominal/chest pain located under her left rib cage. Patient states that it feels like it is her lung or diaphragm causing the pain. Patient underwent laboratory studies revealing no significant leukocytosis.Normal coagulation studies, D-dimer negative at 0.35; negative troponin; UA shows moderate leukocyte esterase, 17 WBCs but patient is not having any urinary symptoms. Urine hCG not detected. Chest x-ray shows no acute process. Advised patient on findings. She will be discharged home with advised follow-up to her PCP. She is understanding and agreeable with this plan. Patient stable at time of discharge. Case discussed with Dr. Sol Undiagnosed new problem with uncertain prognosis? @ -No Drug Therapy requiring intensive monitoring for toxicity (Heparin, Nitro, Insulin, Cardizem)? @ -No Were any procedures done? @ -No Diagnosis/symptom? @ -chest pain Acute, or Chronic, or Acute on Chronic? @ -acute Uncomplicated (without systemic symptoms) or Complicated (systemic symptoms)? @ -uncomplicated Side effects of treatment? @ -No Exacerbation, Progression, or Severe Exacerbation? @ -No Poses a threat to life or bodily function? How? (Chest pain, USA, NM, pneumonia, PE, COPD, DKA, ARF, appy, cholecystitis, CVA, Diverticulitis, Homicidal, Suicidal, threat to staff... and all critical care pts) @ -No - Lab Data Result diagrams: 12/28/23 18:56 12/28/23 18:56 Lab Results 12/28/23 12/28/23 12/28/23 Range/Units 18:56 18:56 18:56 WBC 4.2 (3.8-10.6) k/uL RBC 4.17 (3.80-5.40) m/uL Hgb 11.6 (11.4-16.0) gm/dL Hct 36.8 (34.0-46.0) % MCV 88.1 (80.0-100.0) fL MCH 27.7 (25.0-35.0) pg MCHC 31.4 (31.0-37.0) g/dL RDW 14.6 (11.5-15.5) % Plt Count 280 (150-450) k/uL MPV 6.8 Neutrophils % 69 % Lymphocytes % 21 % Monocytes % 4 % Eosinophils % 4 % Basophils % 1 % Neutrophils # 2.9 (1.3-7.7) k/uL Lymphocytes # 0.9 L (1.0-4.8) k/uL Monocytes # 0.2 (0-1.0) k/uL Eosinophils # 0.2 (0-0.7) k/uL Basophils # 0.0 (0-0.2) k/uL Hypochromasia Moderate PT 10.3 (10.0-12.5) sec INR 0.9 (<1.2) APTT 29.7 (22.0-30.0) sec D-Dimer (<0.60) mg/L FEU Sodium (137-145) mmol/L Potassium (3.5-5.1) mmol/L Chloride (98-107) mmol/L Carbon Dioxide (22-30) mmol/L Anion Gap mmol/L BUN (7-17) mg/dL Creatinine (0.52-1.04) mg/dL Est GFR (CKD-EPI)AfAm (>60 ml/min/1.73 sqM) Est GFR (CKD-EPI)NonAf (>60 ml/min/1.73 sqM) Glucose (74-99) mg/dL Plasma Lactic Acid Corey (0.7-2.0) mmol/L Calcium (8.4-10.2) mg/dL Magnesium (1.6-2.3) mg/dL Total Bilirubin (0.2-1.3) mg/dL AST (14-36) U/L ALT (4-34) U/L Alkaline Phosphatase (38-126) U/L Troponin I (0.000-0.034) ng/mL Total Protein (6.3-8.2) g/dL Albumin (3.5-5.0) g/dL Urine Color Light Yellow Urine Appearance Clear (Clear) Urine pH 6.0 (5.0-8.0) Ur Specific [place] 1.027 (1.001-1.035) Urine Protein Negative (Negative) Urine Glucose (UA) Negative (Negative) Urine Ketones Negative (Negative) Urine Blood Negative (Negative) Urine Nitrite Negative (Negative) Urine Bilirubin Negative (Negative) Urine Urobilinogen <2.0 (<2.0) mg/dL Ur Leukocyte Esterase Moderate H (Negative) Urine RBC 3 (0-5) /hpf Urine WBC 17 H (0-5) /hpf Ur Squamous Epith Cells 3 (0-4) /hpf Urine Mucus Few H (None) /hpf Urine HCG, Qual (Not Detectd) 12/28/23 12/28/23 12/28/23 Range/Units 18:56 18:56 18:56 WBC (3.8-10.6) k/uL RBC (3.80-5.40) m/uL Hgb (11.4-16.0) gm/dL Hct (34.0-46.0) % MCV (80.0-100.0) fL MCH (25.0-35.0) pg MCHC (31.0-37.0) g/dL RDW (11.5-15.5) % Plt Count (150-450) k/uL MPV Neutrophils % % Lymphocytes % % Monocytes % % Eosinophils % % Basophils % % Neutrophils # (1.3-7.7) k/uL Lymphocytes # (1.0-4.8) k/uL Monocytes # (0-1.0) k/uL Eosinophils # (0-0.7) k/uL Basophils # (0-0.2) k/uL Hypochromasia PT (10.0-12.5) sec INR (<1.2) APTT (22.0-30.0) sec D-Dimer (<0.60) mg/L FEU Sodium 139 (137-145) mmol/L Potassium 3.9 (3.5-5.1) mmol/L Chloride 106 (98-107) mmol/L Carbon Dioxide 26 (22-30) mmol/L Anion Gap 7 mmol/L BUN 17 (7-17) mg/dL Creatinine 0.76 (0.52-1.04) mg/dL Est GFR (CKD-EPI)AfAm >90 (>60 ml/min/1.73 sqM) Est GFR (CKD-EPI)NonAf >90 (>60 ml/min/1.73 sqM) Glucose 83 (74-99) mg/dL Plasma Lactic Acid Corey 0.5 L (0.7-2.0) mmol/L Calcium 10.3 H (8.4-10.2) mg/dL Magnesium 2.4 H (1.6-2.3) mg/dL Total Bilirubin 0.3 (0.2-1.3) mg/dL AST 25 (14-36) U/L ALT 9 (4-34) U/L Alkaline Phosphatase 81 (38-126) U/L Troponin I <0.012 (0.000-0.034) ng/mL Total Protein 8.3 H (6.3-8.2) g/dL Albumin 5.3 H (3.5-5.0) g/dL Urine Color Urine Appearance (Clear) Urine pH (5.0-8.0) Ur Specific [place] (1.001-1.035) Urine Protein (Negative) Urine Glucose (UA) (Negative) Urine Ketones (Negative) Urine Blood (Negative) Urine Nitrite (Negative) Urine Bilirubin (Negative) Urine Urobilinogen (<2.0) mg/dL Ur Leukocyte Esterase (Negative) Urine RBC (0-5) /hpf Urine WBC (0-5) /hpf Ur Squamous Epith Cells (0-4) /hpf Urine Mucus (None) /hpf Urine HCG, Qual (Not Detectd) 12/28/23 12/28/23 Range/Units 18:56 18:56 WBC (3.8-10.6) k/uL RBC (3.80-5.40) m/uL Hgb (11.4-16.0) gm/dL Hct (34.0-46.0) % MCV (80.0-100.0) fL MCH (25.0-35.0) pg MCHC (31.0-37.0) g/dL RDW (11.5-15.5) % Plt Count (150-450) k/uL MPV Neutrophils % % Lymphocytes % % Monocytes % % Eosinophils % % Basophils % % Neutrophils # (1.3-7.7) k/uL Lymphocytes # (1.0-4.8) k/uL Monocytes # (0-1.0) k/uL Eosinophils # (0-0.7) k/uL Basophils # (0-0.2) k/uL Hypochromasia PT (10.0-12.5) sec INR (<1.2) APTT (22.0-30.0) sec D-Dimer 0.35 (<0.60) mg/L FEU Sodium (137-145) mmol/L Potassium (3.5-5.1) mmol/L Chloride (98-107) mmol/L Carbon Dioxide (22-30) mmol/L Anion Gap mmol/L BUN (7-17) mg/dL Creatinine (0.52-1.04) mg/dL Est GFR (CKD-EPI)AfAm (>60 ml/min/1.73 sqM) Est GFR (CKD-EPI)NonAf (>60 ml/min/1.73 sqM) Glucose (74-99) mg/dL Plasma Lactic Acid Corey (0.7-2.0) mmol/L Calcium (8.4-10.2) mg/dL Magnesium (1.6-2.3) mg/dL Total Bilirubin (0.2-1.3) mg/dL AST (14-36) U/L ALT (4-34) U/L Alkaline Phosphatase (38-126) U/L Troponin I (0.000-0.034) ng/mL Total Protein (6.3-8.2) g/dL Albumin (3.5-5.0) g/dL Urine Color Urine Appearance (Clear) Urine pH (5.0-8.0) Ur Specific [place] (1.001-1.035) Urine Protein (Negative) Urine Glucose (UA) (Negative) Urine Ketones (Negative) Urine Blood (Negative) Urine Nitrite (Negative) Urine Bilirubin (Negative) Urine Urobilinogen (<2.0) mg/dL Ur Leukocyte Esterase (Negative) Urine RBC (0-5) /hpf Urine WBC (0-5) /hpf Ur Squamous Epith Cells (0-4) /hpf Urine Mucus (None) /hpf Urine HCG, Qual Not Detected (Not Detectd) Disposition Clinical Impression: Chest pain, Abdominal pain Disposition: HOME SELF-CARE Condition: Stable Additional Instructions: Please follow up with your primary care provider. Return to the emergency department for new or worsening symptoms. Is patient prescribed a controlled substance at d/c from ED?: No Referrals: Dayo Vidal DO [Primary Care Provider] - 1-2 days
[2023-12-28 19:10] LABS: Basophils % (A) 1 %; Eosinophils # (A) 0.2 k/uL (0-0.7); Eosinophils % (A) 4 %; HCT 36.8 % (34.0-46.0); HGB 11.6 gm/dL (11.4-16.0); Hypochromasia Moderate; Lymphocytes # (A) 0.9 k/uL (1.0-4.8); Lymphocytes % (A) 21 %; MCH 27.7 pg (25.0-35.0); MCHC 31.4 g/dL (31.0-37.0); MCV 88.1 fL (80.0-100.0); Mean Platelet Volume 6.8; Monocytes # (A) 0.2 k/uL (0-1.0); Monocytes % (A) 4 %; Neutrophils # (A) 2.9 k/uL (1.3-7.7); Neutrophils % (A) 69 %; Platelet Count 280 k/uL (150-450); RBC 4.17 m/uL (3.80-5.40); RDW 14.6 % (11.5-15.5); WBC 4.2 k/uL (3.8-10.6)
[2023-12-28 19:12] LABS: Appearance,Urine Clear (Clear); Bilirubin,Urine Negative (Negative); Blood,Urine Negative (Negative); Color,Urine Light Yellow; Glucose,Urine (UA) Negative (Negative); Ketones,Urine Negative (Negative); Leukocyte Esterase,Urine Moderate (Negative); Mucus,Urine Few /hpf; Nitrite,Urine Negative (Negative); Protein,Urine Negative (Negative); RBC,Urine 3 /hpf (0-5); Specific Gravity,Urine 1.027 (1.001-1.035); Squamous Epithelial Cell,Urine 3 /hpf (0-4); Urobilinogen,Urine <2.0 mg/dL (<2.0); WBC,Urine 17 /hpf (0-5)
--- NOTE | 2023-12-28 19:15 | XR ---
EXAMINATION TYPE: XR chest 2V DATE OF EXAM: 12/28/2023 7:11 PM COMPARISON: 09/30/2023 CLINICAL INDICATION: Female, 38 years old with history of left sided pain, TECHNIQUE: XR chest 2V view(s) obtained. FINDINGS: The heart size is normal. The pulmonary vasculature is normal. The lungs are clear. IMPRESSION: 1. No acute pulmonary process. [facility], , 12/28/2023 7:13 PM
[2023-12-28 19:18] LABS: INR 0.9 (<1.2); Partial Thromboplastin Time 29.7 sec (22.0-30.0); Prothrombin Time 10.3 sec (10.0-12.5)
[2023-12-28 19:20] LABS: ALT 9 U/L (4-34); AST 25 U/L (14-36); African American GFR (CKD) >90 (>60 ml/min/1.73 sqM); Albumin 5.3 g/dL (3.5-5.0); Alkaline Phosphatase 81 U/L (38-126); Anion Gap 7 mmol/L; Blood Urea Nitrogen 17 mg/dL (7-17); Calcium 10.3 mg/dL (8.4-10.2); Carbon Dioxide 26 mmol/L (22-30); Chloride 106 mmol/L (98-107); Glucose 83 mg/dL (74-99); Magnesium 2.4 mg/dL (1.6-2.3); Non-African American GFR(CKD) >90 (>60 ml/min/1.73 sqM); Potassium 3.9 mmol/L (3.5-5.1); Sodium 139 mmol/L (137-145); Total Bilirubin 0.3 mg/dL (0.2-1.3); Total Protein 8.3 g/dL (6.3-8.2)
[2023-12-28 21:19] VITALS: PULSE 75; RESP 16; TEMP 97.6
[2023-12-28 21:33] VITALS: BP 161/93
== END 2023-12-28 21:36 | disposition home or self-care (01) ==
LOC: EC 17:13
DX: R07.89 Other chest pain (principal); R10.9 Unspecified abdominal pain; Z88.0 Allergy status to penicillin; Z88.1 Allergy status to other antibiotic agents; Z88.5 Allergy status to narcotic agent; Z88.8 Allergy status to other drugs, medicaments and biological substances
CPT/HCPCS: 36415; 71046; 80053; 81001; 81025; 83605; 83735; 84484; 85025; 85379; 85610; 85730; 93005; 99284